=== PATIENT | female | born 1985 | race Caucasian/White ===

== ENCOUNTER 2020-08-16 10:36 | Outpatient (REF) | payer MEDICAID, SELFPAY | END 2020-08-16 10:37 | disposition home or self-care (01) | LOC: HO.LAB 10:36 | PROVIDERS: Visit Provider Internal Medicine | DX: Z20.828 Contact with and (suspected) exposure to other viral communicable diseases (principal) | CPT/HCPCS: 87635 ==

== ENCOUNTER 2020-08-24 10:01 | Outpatient (REF) | payer MEDICAID, SELFPAY | END 2020-08-24 10:02 | disposition home or self-care (01) | LOC: HO.LAB 10:01 | PROVIDERS: Visit Provider Internal Medicine | DX: Z20.828 Contact with and (suspected) exposure to other viral communicable diseases (principal) | CPT/HCPCS: 87635 ==

== ENCOUNTER 2020-09-14 13:42 | Outpatient (REF) | payer MEDICAID, SELFPAY ==
[2020-09-15 09:49] LABS: CT PCR NOT DETECTED (Not Detect.); NG PCR NOT DETECTED (Not Detect.)
== END 2020-09-14 13:43 | disposition home or self-care (01) ==
LOC: HO.LNP 13:42
PROVIDERS: Visit Provider Advanced Practice Midwife
DX: Z01.419 Encounter for gynecological examination (general) (routine) without abnormal findings (principal); B37.2 Candidiasis of skin and nail; E66.01 Morbid (severe) obesity due to excess calories; Z87.42 Personal history of other diseases of the female genital tract
CPT/HCPCS: 87491; 87591

== ENCOUNTER → 2020-10-04 15:44 | Outpatient (BNVA) | payer MEDICAID, SELFPAY | PROVIDERS: Visit Provider Obstetrics & Gynecology | DX: N92.1 Excessive and frequent menstruation with irregular cycle (principal) | CPT/HCPCS: 99212 ==

== ENCOUNTER 2020-12-15 13:50 | Outpatient (REF) | payer MEDICAID, SELFPAY ==
[2020-12-15 18:19] LABS: Glucose Urine UA NEG (NEG); Leukocyte Esterase Urine NEG (NEG); Nitrite Urine NEG (NEG); Urine Blood NEG (NEG); Urine Ketones NEG (NEG); Urine Protein NEG (NEG-TRACE)
[2020-12-15 18:24] LABS: Appearance Urine CLEAR; Color Urine YELLOW
[2020-12-15 18:29] LABS: Bacteria Urine TRACE /LPF; RBC Urine 0 /HPF (0); Squamous Epithelial Cell Urine 2+ /LPF; WBC Urine 0 /HPF (0-4)
== END 2020-12-15 13:51 | disposition home or self-care (01) ==
LOC: HO.LAB 13:50
PROVIDERS: PCP Internal Medicine; Visit Provider Advanced Practice Midwife
DX: R10.2 Pelvic and perineal pain (principal); E66.01 Morbid (severe) obesity due to excess calories; Z68.43 Body mass index [BMI] 50.0-59.9, adult; Z87.42 Personal history of other diseases of the female genital tract
CPT/HCPCS: 81001; 99212

== ENCOUNTER 2021-01-03 12:44 | Outpatient (REF) | payer MEDICAID, SELFPAY ==
--- NOTE | ~2021-01-03 | US_ITS ---
EXAMINATION: ULTRASOUND PELVIS COMPLETE CLINICAL INFORMATION: Pelvic pain and menometrorrhagia. COMPARISON: Ultrasound pelvis 02/28/2020 TECHNIQUE: Transabdominal and transvaginal ultrasound of the pelvis is performed. FINDINGS: On transabdominal ultrasound the uterus is anteverted measuring 12.0 cm in length, 5.3 cm in AP and 6.0 cm in transverse dimension. Endometrial thickness is 1.1 cm. The uterus is homogeneous in echotexture. Right ovary is not visualized. The left ovary is faintly visualized measuring 2.6 x 1.9 x 1.5 cm and volume 3.9 mL. Previously it measured 1.9 x 1.8 x 2.2 cm. There is no free fluid in cul-de-sac. US/US pelvic complete IMPRESSION: 1. Unremarkable uterus. 2. Right ovary is not seen. 3. Suboptimally visualized left ovary is unremarkable.
--- NOTE | ~2021-01-03 | US_ITS ---
EXAMINATION: ULTRASOUND PELVIS COMPLETE CLINICAL INFORMATION: Pelvic pain and menometrorrhagia. COMPARISON: Ultrasound pelvis 02/28/2020 TECHNIQUE: Transabdominal and transvaginal ultrasound of the pelvis is performed. FINDINGS: On transabdominal ultrasound the uterus is anteverted measuring 12.0 cm in length, 5.3 cm in AP and 6.0 cm in transverse dimension. Endometrial thickness is 1.1 cm. The uterus is homogeneous in echotexture. Right ovary is not visualized. The left ovary is faintly visualized measuring 2.6 x 1.9 x 1.5 cm and volume 3.9 mL. Previously it measured 1.9 x 1.8 x 2.2 cm. There is no free fluid in cul-de-sac. US/US transvaginal IMPRESSION: 1. Unremarkable uterus. 2. Right ovary is not seen. 3. Suboptimally visualized left ovary is unremarkable.
== END 2021-01-03 12:45 | disposition home or self-care (01) ==
LOC: HO.US 12:44
PROVIDERS: PCP Internal Medicine; Visit Provider Advanced Practice Midwife
DX: R10.2 Pelvic and perineal pain (principal); E66.01 Morbid (severe) obesity due to excess calories; Z68.43 Body mass index [BMI] 50.0-59.9, adult; Z87.42 Personal history of other diseases of the female genital tract
CPT/HCPCS: 76830; 76856

== ENCOUNTER → 2021-01-12 14:54 | Outpatient (BNVA) | payer MEDICAID, SELFPAY | PROVIDERS: Visit Provider Advanced Practice Midwife ==

== ENCOUNTER 2021-04-11 09:09 | Outpatient (REF) | payer MEDICAID, SELFPAY ==
--- NOTE | ~2021-04-11 | XR_ITS ---
EXAMINATION: XR LUMBOSACRAL SPINE WITH OBLIQUES CLINICAL INFORMATION: Low back pain COMPARISON: None TECHNIQUE: AP, both oblique, and lateral views of the lumbar spine. Lateral view of the lumbosacral junction. FINDINGS: The vertebral bodies and posterior elements are normal. The disc spaces are preserved and the vertebral alignment is normal. The paraspinal soft tissues are normal. XR/XR lumbar spine 4V min IMPRESSION: Unremarkable lumbar spine examination.
== END 2021-04-11 09:10 | disposition home or self-care (01) ==
LOC: HO.XRAY 09:09
PROVIDERS: Visit Provider Internal Medicine
DX: M54.5 Low back pain (principal)
CPT/HCPCS: 72110

== ENCOUNTER 2021-07-24 07:55 | Outpatient (REF) | payer MEDICAID, SELFPAY | END 2021-07-24 07:56 | disposition home or self-care (01) | LOC: HO.LAB 07:55 | PROVIDERS: Visit Provider Internal Medicine | DX: Z20.822 Contact with and (suspected) exposure to COVID-19 (principal) | CPT/HCPCS: C9803; U0003; U0005 ==

== ENCOUNTER → 2021-12-18 10:18 | Outpatient (BNVA) | payer MEDICAID, SELFPAY | PROVIDERS: Visit Provider Advanced Practice Midwife ==

== ENCOUNTER 2023-01-28 10:22 | Outpatient (REF) | payer MEDICAID, SELFPAY ==
--- NOTE | ~2023-01-28 | MM_ITS ---
EXAMINATION: MM DIAGNOSTIC DIGITAL BREAST TOMOSYNTHESIS, BILATERAL US DIAGNOSTIC ULTRASOUND BREAST, LEFT CLINICAL INFORMATION: 37-year-old with one-month history pain left breast upper outer and lower outer. No erythema, discharge, or palpable abnormality. No prior breast imaging. No known family history breast cancer. The lifetime risk of breast cancer based on the Tyrer-Cuzick Model is 9%. COMPARISON: None (current study represents initial baseline exam). TECHNIQUE: Digital breast tomosynthesis is performed in both the craniocaudal and mediolateral oblique views along with computer-aided detection (CAD). Synthesized 2D images are generated from the tomosynthesis. Additional views are obtained: Right MLO x2, left CC, left MLO. Ultrasound left breast is targeted to the areas of clinical concern outer left breast using grayscale imaging and color Doppler without and with harmonics. FINDINGS: There are scattered areas of fibroglandular density (ACR BI-RADS breast composition Category b). There are no significant masses, abnormal calcifications, or other abnormalities. No architectural abnormality. No skin thickening or coarsening of the South's ligaments. The axilla are unremarkable. Ultrasound demonstrates no cystic or solid mass, architectural abnormality, or focal duct ectasia. No skin thickening or edema tracking in the soft tissue planes. Results are discussed with the patient at time of visit, with assistance of an night supervisor. MM/MM tomosynthesis diagnostic BI IMPRESSION: -No mammographic evidence of malignancy or inflammatory changes. -Unremarkable targeted left breast ultrasound ASSESSMENT: BI-RADS 1: Negative RECOMMENDATION: 1. Patient's left mastodynia should be managed based on the clinical impression. 2. Otherwise, routine annual screening mammography, beginning age 40, or earlier as clinical risk factors warrant. This patient's information was entered into a reminder system with a target due date for their next mammogram.
== END 2023-01-28 10:23 | disposition home or self-care (01) ==
LOC: HO.MAMMO 10:22
PROVIDERS: Visit Provider Advanced Practice Midwife
DX: N64.4 Mastodynia (principal)
CPT/HCPCS: 76642; 77062; 77066

== ENCOUNTER 2023-02-06 09:15 | Outpatient (REF) | payer MEDICAID, SELFPAY ==
[2023-02-06 15:34] LABS: CT PCR NOT DETECTED (Not Detect.); NG PCR NOT DETECTED (Not Detect.)
[2023-02-07 09:55] LABS: BV Int Neg Control Negative (Negative); BV Int Pos Control Positive (Positive)
[2023-02-20 04:44] LABS: HPV mRNA E6/E7 rflx Not Detected (Not Detected)
== END 2023-02-06 09:16 | disposition home or self-care (01) ==
LOC: HO.LNP 09:15
PROVIDERS: PCP Internal Medicine; Visit Provider Advanced Practice Midwife
DX: Z01.419 Encounter for gynecological examination (general) (routine) without abnormal findings (principal); E66.01 Morbid (severe) obesity due to excess calories; Z68.43 Body mass index [BMI] 50.0-59.9, adult; N92.1 Excessive and frequent menstruation with irregular cycle; Z11.51 Encounter for screening for human papillomavirus (HPV)
CPT/HCPCS: 0353U; 87480; 87510; 87624; 87660; 88142

== ENCOUNTER 2023-09-03 08:48 | Outpatient (REF) | payer MEDICAID, SELFPAY ==
[2023-09-05 18:48] LABS: TS Negative Control Passed; TS Panel A 0; TS Panel B 0; TS Positive Control Passed; TSpotTB Negative (Negative)
== END 2023-09-03 08:49 | disposition home or self-care (01) ==
LOC: HO.HHCL 08:48
PROVIDERS: Visit Provider Internal Medicine
DX: Z11.1 Encounter for screening for respiratory tuberculosis (principal)
CPT/HCPCS: 36415; 86481

== ENCOUNTER 2024-02-17 11:30 | Outpatient (AMB) | payer MEDICAID, SELFPAY ==
--- NOTE | 2024-02-17 11:35 | MHC.OFFVIS ---
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 Present Allergies penicillin V Allergy (Unknown, Verified 02/17/24 11:35) rash Penicillins [PENICILLINS] Allergy (Unknown, Verified 02/17/24 11:35) RASH Medication List - Last Reconciled 02/17/24 by Li Kendrick CNM desogestrel-ethinyl estradiol 0.15-0.03 mg (Lisa) 1 tab PO DAILY famotidine 20 mg PO DAILY ibuprofen (IBU) 600 mg PO Q8H PRN miconazole nitrate 2% 1 appl topical BID timolol 0.25% 1 drp ophthalmic (eye) DAILY Is last menstrual period known: Yes Last menstrual period: 02/03/24 Do you need a note to return to daycare/school/sports/work: No HPI 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 She says she is on control pills for control but also to help control her heavy periods she was recommended to have an IUD in the past by Dr. Garcia but she did not want it so she says he started her on pills. She has been on them for a while she does like them.. She sees her primary care provider but has not seen him in a year and will be making an appointment but has not gotten an appointment me for her yet. She says she does not have diabetes or high cholesterol or high blood pressure and her labs were last done about a year ago. 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 She tries to eat good and avoid sweets since soda. She is in heavy and overweight for many years. She wants refills on control pills role so on the powder that I gave her another year to help with prevention of yeast in the folds of her pannus. [facility] Medical History Morbid obesity with BMI of 50.0-59.9, adult History of menorrhagia Glaucoma Sleep apnea Surgical History History of hysteroscopy S/P Social History Alcohol intake: never Gender identity: Female Female Reproductive History Menstrual Age of Menarche: 11 Duration of menses: 3-5 days Date of last menstrual period: 02/03/24 control method: pills Total pregnancies: 2 Full term: 2 Date of last pap smear: 02/07/23 (neg,previous pap 2018 wnl) History of abnormal pap smear: No Physical Exam Vital Signs: Last Vital Signs BP 112/68 02/17/24 11:42 BMI result Body Mass Index 51.2 Chest Other: Her breasts are large and pendulous no masses or skin dimpling or retraction noted. Speculum Exam - Vagina: normal appearance of the vagina and other Speculum Exam - Cervix: normal appearance of the cervix (Only the tip of the cervix could be visible pink and smooth and it was flee) and Other cervical findings present (limited views, only tip of cervix visible and it disappeared quickly) Bimanual exam- vagina & uterus: other (uterus difficult to assess 2' habitus) Bimanual Exam- Adnexa, other: Other (palpation of adnexae limited 2' habitus) Results Reviewed Results Reviewed: Name: Marina Pena Age/Sex: 37/F Attending: Li Kendrick CNM : 1985 Submitted by: Li Kendrick CNM Copies to: Keshia Beck MD MR #: [id number] Status: DEP REF Collected: 02/06/23 Location: [facility] Received: 02/07/23 ADDENDUM REPORT Addendum Addendum #1 HPV mRNA E6/E7: NOT DETECTED This assay detects E6/E7 viral messenger RNA (mRNA) from 14 high-risk HPV types (16, 18, 31, 33, 35, 39, 45, 51, 52, 56, 58, 59, 66, 68) HPV testing performed by [facility], [place], [place]. See reference laboratory portion of the EMR for entire report. Electronically Signed By: Maribell Veliz 02/27/23 193 Interpretation Satisfactory for evaluation. No endocervical cells seen. Negative for intraepithelial lesion or malignancy. Clinical Information LMP: 01/30/23 Previous PAP test: 07/13/18, WNL Material Received ThinPrep-Cervical Copies To Keshia Beck MD [address] [place] [address] Li Kendrick CNM Patient: Marina Pena Age/Sex: 37/F MR#: [id number] Page 1 of 2 Gynecologic Cytology [id number] [place] [address] Dr. Che [address] [place] [id number] Electronically Signed By: Marilee Arthur 02/10/23 1211 The Pap Test is a screening procedure with the inherent possibility of both false negative and false positive results. Results should be interpreted in the context of historic and current clinical findings. Reliability of the Pap Test is enhanced by performing the test on a regular repetitive basis. Patient: Marina Pena Age/Sex: 37/F MR#: [id number] Assessment & Plan Assessment & Plan (1) Surveillance for control, oral contraceptives: Comment: See notes again re discussion of risks.. Code(s): Z30.41 - Encounter for surveillance of contraceptive pills Category: Medical (2) Morbid obesity with BMI of 50.0-59.9, adult: Code(s): E66.01 - Morbid (severe) obesity due to excess calories; Z68.43 - Body mass index [BMI] 50.0-59.9, adult Category: Medical (3) History of menorrhagia: Code(s): Z87.42 - Personal history of other diseases of the female genital tract Category: Medical (4) Well woman exam with routine gynecological exam: Code(s): Z01.419 - Encounter for gynecological examination (general) (routine) without abnormal findings Category: Medical (5) Menometrorrhagia: Comment: Being managed with control pills patient has refused Mirena with counseling, and is still reluctant... Code(s): N92.1 - Excessive and frequent menstruation with irregular cycle Category: Medical (6) Cervical cancer screening: Comment: pap 07/13/18= neg, neg HPV, next due 06/2023; 02/06/2023 Pap is negative but HPV co testing was omitted. I am ordering it now.--HPV is negative. Code(s): Z12.4 - Encounter for screening for malignant neoplasm of cervix Category: Medical Plan -----Discussed in this visit the following: healthy balanced diet, regular and consistent exercise, getting recommended health screens, doing the best she can for her particular health concerns, kegel exercises, pap smear screening and followup recommendations, mammography screening and SBE, normal changes in cycles in her life stage--- .Discussed in general terms the challenges of obesity and challenges for her health and efforts she is engaging in to manage this including dietary changes water intake attention to sleep inclusion of a regular exercise have it and dealing with the may need stressors of life that can contribute to obesity in general. Encouraged her to continue in all have her best efforts- -----discussed importantly her obesity in relation to her past history of menorrhagia and her current management on control pills discussed increased risks of being on control pills especially with increasing age and increased risks inherent with this but also most especially her obesity she is very active all the time then not sedentary which is a good thing and may mitigate against risks of thromboembolic events. Discussed though in general eventually the obesity will present other negative health effects that will become more evident with time. I urged her to really try to focus effort trying to lose weight. Discussed that if she has not able to managed on control pills because of a comorbidity for instance if she develops hypertension or something, then a Mirena would again need to be revisited however in this particular space and time I was not even able to fully visualize her cervix let alone consider doing a Pap smear or placing a Mirena. I really urged her to embrace some of her fears of surgery and other interventions for weight loss in a discussion with her primary care provider and consider balancing that with the fears of the negative effects of the her obesity. Orders: Orders CT NG by PCR Today Z01.419 - Encounter for gynecological examination (general) (routine) without abnormal findings Bacterial Vaginosis Panel Today Z20.2 - Contact with and (suspected) exposure to infections with a predominantly sexual mode of transmission Medications: Refilled miconazole nitrate 2% 1 appl topical BID 85 grams 4RF desogestrel-ethinyl estradiol 0.15-0.03 mg (Lisa) Patient to be evaluated by her primary care provider for general health concerns within this time 1 tab PO DAILY 84 tabs 3RF Coding Level of Care Code Est Pt Prev Care 18-39y([id number]) Diagnoses Surveillance for control, oral contraceptives Z30.41 Morbid obesity with BMI of 50.0-59.9, adult E66.01; Z68.43 History of menorrhagia Z87.42 Well woman exam with routine gynecological exam Z01.419 Menometrorrhagia N92.1 Cervical cancer screening Z12.4
[2024-02-17 11:42] VITALS: BP 112/68; BMI 51.2
== END 2024-02-17 13:00 | disposition home or self-care (01) ==
LOC: HO.HWSM 11:30
PROVIDERS: PCP Internal Medicine; Visit Provider Advanced Practice Midwife
DX: Z30.41 Encounter for surveillance of contraceptive pills (principal); E66.01 Morbid (severe) obesity due to excess calories; Z68.43 Body mass index [BMI] 50.0-59.9, adult; Z87.42 Personal history of other diseases of the female genital tract; Z01.419 Encounter for gynecological examination (general) (routine) without abnormal findings; N92.1 Excessive and frequent menstruation with irregular cycle; Z12.4 Encounter for screening for malignant neoplasm of cervix
CPT/HCPCS: 99395

== ENCOUNTER 2024-02-17 11:30 | Outpatient (REF) | payer MEDICAID, SELFPAY ==
[2024-02-18 07:41] LABS: CT PCR NOT DETECTED (Not Detect.); NG PCR NOT DETECTED (Not Detect.)
[2024-02-18 13:26] LABS: BV Int Neg Control Negative (Negative); BV Int Pos Control Positive (Positive)
== END 2024-02-17 11:31 | disposition home or self-care (01) ==
LOC: HO.LAB 11:30
PROVIDERS: PCP Internal Medicine; Visit Provider Advanced Practice Midwife
DX: Z01.419 Encounter for gynecological examination (general) (routine) without abnormal findings (principal); Z20.2 Contact with and (suspected) exposure to infections with a predominantly sexual mode of transmission
CPT/HCPCS: 0353U; 87480; 87510; 87660; 99395

== ENCOUNTER 2024-09-03 16:15 | Outpatient (REF) | payer MEDICAID, SELFPAY ==
[2024-09-04 09:07] LABS: Adenovirus PCR Not Detected (Not Detect.); Bordetella parapertussis PCR Not Detected (Not Detect.); Bordetella pertussis PCR Not Detected (Not Detect.); Chlamydia pneumoniae PCR Not Detected (Not Detect.); Coronavirus 229E PCR Not Detected (Not Detect.); Coronavirus HKU1 PCR Not Detected (Not Detect.); Coronavirus NL63 PCR Not Detected (Not Detect.); Coronavirus OC43 PCR Not Detected (Not Detect.); Human metapneumovirus PCR Not Detected (Not Detect.); Influenza A PCR Not Detected (Not Detect.); Influenza B PCR Not Detected (Not Detect.); Mycoplasma pneumoniae PCR Not Detected (Not Detect.); Parainfluenza 1 PCR Not Detected (Not Detect.); Parainfluenza 2 PCR Not Detected (Not Detect.); Parainfluenza 3 PCR Not Detected (Not Detect.); Parainfluenza 4 PCR Not Detected (Not Detect.); RSV PCR Not Detected (Not Detect.); Rhino/Enterovirus PCR Not Detected (Not Detect.)
[2024-09-04 09:12] LABS: SARS-CoV-2 PCR Not Detected (Not Detect.)
== END 2024-09-03 16:16 | disposition home or self-care (01) ==
LOC: HO.LNP 16:15
PROVIDERS: Visit Provider Emergency Medicine
DX: E11.9 Type 2 diabetes mellitus without complications (principal)
CPT/HCPCS: 87633

== ENCOUNTER 2024-09-06 09:55 | Outpatient (REF) | payer MEDICAID, SELFPAY ==
[2024-09-06 11:10] LABS: MANUAL DIFF FLAG NO
[2024-09-06 11:19] LABS: Basophils Percent Auto 0.2 % (0-2); Eosinophils Absolute Auto 0.2 X10*3/uL (0.0-0.4); Eosinophils Percent Auto 1.4 % (0-4); Hematocrit 38.1 % (37.0-47.0); Hemoglobin 12.4 g/dl (12.0-16.0); Imm Gran Abs Auto 0.05 X10*3/uL (0.00-0.03); Imm Gran Pct Auto 0.4 % (0.0-0.4); Lymphocytes Absolute Auto 2.9 X10*3/uL (1.2-4.9); Lymphocytes Percent Auto 22.3 % (20-40); Mean Corpuscular HGB Conc 32.5 g/dl (31.0-35.0); Monocytes Absolute Auto 0.5 X10*3/uL (0.1-1.2); Neutrophils Absolute Auto 9.3 x10*3/uL (2.0-8.3); Neutrophils Percent Auto 71.7 % (45-73); Platelet Count 296 X10*3/uL (160-400); Red Blood Count 4.14 X10*6/uL (4.20-5.50); Red Cell Distribution Width 12.9 % (11.0-16.0)
[2024-09-06 11:55] LABS: Alanine Aminotransferase 7 U/L (0-31); Albumin Level 3.5 g/dL (3.5-5.0); Alkaline Phosphatase 64 U/L (39-117); Anion Gap 11 (12-20); Aspartate Amino Transferase 12 U/L (5-31); Bilirubin Total 0.3 mg/dL (0.0-1.0); Blood Urea Nitrogen 10 mg/dL (9-16); Calcium 8.7 mg/dL (8.4-10.2); Carbon Dioxide 21 mmol/L (22-29); Chloride 111 mmol/L (96-108); Cholesterol 140 mg/dL (<200); Estimated Glomerular Filt Rate > 60; Glucose Random 134 mg/dL (60-115); HDL Cholesterol 46 mg/dL (>40); LDL Cholesterol Calculated 44 mg/dL (<100); Potassium 3.9 mmol/L (3.3-5.1); Sodium 139 mmol/L (135-145); TSH reflex Free T4 3.09 uIU/mL (0.32-4.0); Total Protein 7.4 g/dL (6.5-8.0); Triglycerides 250 mg/dL (<150); Vitamin D 25-OH Total 14.8 ng/mL (>30)
[2024-09-06 12:41] LABS: HIV AB/AG Nonreactive (Nonreactive); HIV Num 1 0.06 S/CO (0.00-0.99); ~Hepatitis C Antibody Nonreactive (Nonreactive)
== END 2024-09-06 09:56 | disposition home or self-care (01) ==
LOC: HO.HHCL 09:55
PROVIDERS: Visit Provider Internal Medicine
DX: E11.9 Type 2 diabetes mellitus without complications (principal)
CPT/HCPCS: 36415; 80053; 80061; 82306; 84443; 85025; 86803; 87389

== ENCOUNTER 2024-10-29 09:58 | Outpatient (REF) | payer MEDICAID, SELFPAY ==
--- NOTE | ~2024-10-29 | XR_ITS ---
CLINICAL HISTORY: pain 3 view left hand Comparison: None Findings: No fractures or dislocations. No significant loss of joint space or osteophytes. No erosions. No radiopaque foreign body. IMPRESSION: 1. No acute findings This document has been electronically signed by: Bibiana Heaton MD on 11/02/2024 14:27:02
== END 2024-10-29 09:59 | disposition home or self-care (01) ==
LOC: HO.XRAY 09:58
PROVIDERS: PCP Internal Medicine; Visit Provider Internal Medicine
DX: M79.642 Pain in left hand (principal)
CPT/HCPCS: 73130

== ENCOUNTER → 2024-10-29 10:06 | Outpatient (BNV) | payer MEDICAID, SELFPAY | PROVIDERS: PCP Internal Medicine; Visit Provider Radiology Diagnostic Radiology | DX: M79.642 Pain in left hand (principal) | CPT/HCPCS: 73130 ==

== ENCOUNTER 2024-11-17 08:14 | Outpatient (REF) | payer MEDICAID, SELFPAY ==
--- NOTE | ~2024-11-17 | XR_ITS ---
CLINICAL HISTORY: M79.642 - Pain in left hand 3 view left hand Comparison: 10/29/2024 Findings: Small linear lucency projecting over the radial aspect of the distal scaphoid on a single view may be artifactual in nature or due to a nondisplaced fracture. Correlate clinically. Otherwise normal alignment without acute fracture. No erosions. No radiopaque foreign body. IMPRESSION: Small linear lucency projecting over the radial aspect of the distal scaphoid on a single view may be artifactual in nature or due to a nondisplaced fracture. Correlate clinically. This document has been electronically signed by: Kamala Mariano MD on 11/18/2024 13:12:44
--- OUTSIDE RECORDS SUMMARY | 2024-11-17 08:19 | XMS_ITS | Encounter Summary ---
Author Organization [employer] Address [address] [facility] [address] [place] [address] Care Team Providers Care Battery Stacker Name Role Phone Keshia Beck MD Primary Care Provide r Encounter Details Date Type Department Care Team ([facility] Contact Info) Description 10/28/2024 Telephone [facility] MEDICINE [address] [place] [address] Keshia Beck MD [address] [place] [address] Social History Tobacco Use Types Packs/Day Years Used Date Smoking Tobacco: Never Passive Smoke Exposure: Never Smokeless Tobacco: Never Alcohol Use Standard Drinks/Week Comments Never 0 (1 standard drink = 0.6 oz pur e alcohol) Depression Answer Date Recorded Patient Health Questionnaire-9 Score 0 10/25/2024 Patient Health Questionnaire-9 Score 0 10/25/2024 Last PHQ-9: Questionnaire Data Not on file 1 Housing Stability Answer Date Recorded What is your housing situation today? I have irena ramires 09/03/[address] you li [...] AM EDT documented as of this encounter Miscellaneous Notes * Telephone Encounter - Isi Sherman [place] - 11/04/2024 9:40 AM EST Received fax from [employer] [facility] for Denial for Zepbound 2.5mg. Fax sent to scan * Telephone Encounter - Alexandra Spence - 10/28/2024 4:30 PM EST [facility] has [facility], no longer requires PA for Zepbound. * Telephone Encounter - Alexandra Spence - 10/28/2024 4:30 PM EST ----- Message from Keshia Mota MD sent at 10/25/2024 10:29 AM EST ----- Please generate PA for zepbound thank you documented in this encounter Plan of Treatment Upcoming Encounters Date Type Department Care Team (Late st Contact Info) Description 12/09/2024 2:30 PM EST Telemedicine [facility] MEDICINE [address] [place] [address] Keshia Beck MD [address] [place] [address] documented as of this encounter Visit Diagnoses Not on filedocumented in this encounter Additional Health Concerns Assessment Noted Time PHQ-9 Depression Total Score: 0 10/25/20 24 10:14 AM EST documented as of this encounter Care Teams Battery Stacker Relationship Specialty Start Date End Date Keshia Beck MD [address] [place] [address] PCP - General Family Medicine 07/08/18 documented as of this encounter
--- OUTSIDE RECORDS SUMMARY | 2024-11-17 08:19 | XMS_ITS | Encounter Summary ---
Author Organization [employer] Address [address] [facility] [address] [place] [address] Care Team Providers Care Tailor Garment Fitter Name Role Phone Keshia Beck MD Primary Care Provide r Reason for Visit * Reason Onset Date Comments Prior Authorization 10/26/2024 [employer]VAL[employer] Reques t: Zepbound Encounter Details Date Type Department Care Team ([facility] Contact Info) Description 10/26/2024 Telephone [facility] MEDICINE [address] [place] [address] Keshia Beck MD [address] [place] [address] Prior Authorization (DEVON AVALOS Request: Zepbound) Social History Tobacco Use Types Packs/Day Years [...] encounter Miscellaneous Notes * Telephone Encounter - Alexandra Spence - 11/03/2024 9:57 AM EST PA for Zepbound signed and faxed to [employer]. Confirmation received and sent to scan. If patient calls to check status on above, please advise them to contact [facility] at [phone]. * Telephone Encounter - Alexandra Spence - 10/26/2024 9:28 AM EST PA for Zepbound from [facility] placed on PCP desk for signature. documented in this encounter Plan of Treatment Upcoming Encounters Date Type Department Care Team (Late st Contact Info) Description 12/09/2024 2:30 PM EST Telemedicine [facility] MEDICINE [address] [place] [address] Keshia Beck MD [address] [place] [address] documented as of this encounter Visit Diagnoses Not on filedocumented in this encounter Additional Health Concerns Assessment Noted Time PHQ-9 Depression Total Score: 0 10/25/20 24 10:14 AM EST documented as of this encounter Care Teams Tailor Garment Fitter Relationship Specialty Start Date End Date Keshia Beck MD [address] [place] [address] PCP - General Family Medicine 07/08/18 documented as of this encounter
--- OUTSIDE RECORDS SUMMARY | 2024-11-17 08:19 | XMS_ITS | Encounter Summary ---
Author Organization [employer] Address [address] [facility] [address] [place] [address] Care Team Providers Care Glue Spreading Machine Operator Name Role Phone Keshia Beck MD Primary Care Provide r Reason for Visit * Reason Comments Med Refill Encounter Details Date Type Department Care Team ([facility] Contact Info) Description 10/29/2024 Refill [facility] MEDICINE [address] [place], [place] [phone] Keshia Beck MD [address] [place], [place] [phone] Newly diagnosed diabetes ([facility]/H[facility]) Social History Tobacco Use Types Packs/Day Years [...] AM EDT documented as of this encounter Plan of Treatment Upcoming Encounters Date Type Department Care Team (Late st Contact Info) Description 12/09/2024 2:30 PM EST Telemedicine [facility] MEDICINE [address] [place] [address] Keshia Beck MD [address] [place] [address] documented as of this encounter Visit Diagnoses Diagnosis Newly diagnosed diabetes ([facility]) Type II or unspecified type diabetes mellitus without mention of complication, not stated as uncontrolled documented in this encounter Additional Health Concerns Assessment Noted Time PHQ-9 Depression Total Score: 0 10/25/20 24 10:14 AM EST documented as of this encounter Care Teams Glue Spreading Machine Operator Relationship Specialty Start Date End Date Keshia Beck MD [address] [place], [place] [phone] PCP - General Family Medicine 07/08/18 documented as of this encounter
--- OUTSIDE RECORDS SUMMARY | 2024-11-17 08:19 | XMS_ITS | Encounter Summary ---
Author Organization [employer] Address [address] [facility] [address] [place] [address] Care Team Providers Care Manager Medicaid Name Role Phone Keshia Beck MD Primary Care Provide r Reason for Visit * Reason Onset Date Comments Prior Authorization 11/10/2024 Encounter Details Date Type Department Care Team ([facility] Contact Info) Description 11/10/2024 Telephone [facility] MEDICINE [address] [place] [address] Keshia Beck MD [address] [place] [address] Prior Authorization Social History Tobacco Use Types Packs/Day Years [...] is your housing situation today? I have irenamelonie ramires 09/03/[address] [...] encounter Miscellaneous Notes * Telephone Encounter - Frandy Sabillon RN - 11/12/2024 3:31 PM EST Patient calling regarding RX Zepbound PA was denied. Per [facility] patients need to trial oral medications such as phentermine if clinically appropriate first. Please review and advise. * Telephone Encounter - Marianna Maxwell - 11/10/2024 9:50 AM EST Tc from pt notifying medication needs a PA Tirzepatide-Weight Management (Zepbound) 2.5 MG/0.5ML solution auto-injector documented in this encounter Plan of Treatment Upcoming Encounters Date Type Department Care Team (Late st Contact Info) Description 12/09/2024 2:30 PM EST Telemedicine [facility] MEDICINE [address] [place] [address] Keshia Beck MD [address] [place] [address] documented as of this encounter Visit Diagnoses Not on filedocumented in this encounter Additional Health Concerns Assessment Noted Time PHQ-9 Depression Total Score: 0 10/25/20 24 10:14 AM EST documented as of this encounter Care Teams Manager Medicaid Relationship Specialty Start Date End Date Keshia Beck MD [address] [place] [address] PCP - General Family Medicine 07/08/18 documented as of this encounter
--- OUTSIDE RECORDS SUMMARY | 2024-11-17 08:19 | XMS_ITS | Clinical Summary ---
Author Organization [employer] Address [address] [facility] 7[address] [place] [address] Care Team Providers Care Acid Polymerization Operator Name Role Phone Keshia Beck MD Primary Care Provide r Allergies Active Allergy Reactions Criticality Noted Date Comments Penicillins 03/26/2017 Other reaction(s): Unknown Medications albuterol (Proventil HFA) 108 (90 Base) MCG/ACT inhalerIndicati ons:Influenza-l cody symptoms INHALE 2 PUFFS EVERY 4 HOURS NEEDED FOR WHEEZING OR SHORTNESS OF BREATH. 6.7 g 11 12/11/19 23 Active baclofen (Lioresal) 20 MG tablet TAKE 1 TABLET BY MOUTH THREE TIMES DAILY NEEDED FOR PAIN 02/07/20 23 Active D3 Super Strength 50 MCG (2000 UT) capsule TAKE 1 CAPSULE BY MOUTH ONCE DAILY 90 capsule 3 06/09/20 23 Active baclofen (Lioresal) 20 MG tablet TAKE 1 TABLET BY MOUTH THREE TIMES DAILY NEEDED FOR PAIN 60 tablet 3 08/19/20 23 Active famotidine (Pepcid) 20 MG tablet TAKE 1 TABLET BY MOUTH TWICE DAILY 180 tablet 05/19/20 24 Active loratadine (Claritin) 10 MG tabletIndicatio ns:Allergic rhinitis, unspecified seasonality, unspecified trigger TAKE 1 TABLET BY MOUTH EVERY DAY NEEDED FOR ALLERGIES 90 tablet 06/30/20 24 Active fluticasone (Flonase Allergy Relief) 50 MCG/ACT nasal sprayIndication s:Influenza-lik e symptoms Administer 1 spray into each nostril Once per day. Shake gently. Before first use, prime pump. After use, clean tip and replace cap. 16 g 12 08/25/20 24 025 Active Spacer/Aero-Hol ding Chambers (OptiChamber Neena) miscIndications :Influenza-like symptoms 1 each every 4 (four) hours if needed (asthma). 1 each 09/03/20 24 Active FREESTYLE LITE test stripIndication s:Newly diagnosed diabetes ([facility]) Use to test blood sugar 2 times daily 100 each 12 09/06/20 24 025 Active Lancets miscIndications :Newly diagnosed diabetes ([facility]) Use to test blood sugar 2 times daily 100 each 2 09/06/20 24 Active Alcohol Swabs 70 % padsIndications :Newly diagnosed diabetes ([facility] Use to test blood sugar 2 times daily 100 each 2 09/06/20 24 Active Blood Glucose Monitoring Suppl (FreeStyle [place] Lite) w/Device kitIndications: Newly diagnosed diabetes ([facility]) Use to test blood sugar 2 times daily 1 kit 09/06/20 24 Active ibuprofen 800 MG tabletIndicatio ns:Polyarthralg ia TAKE 1 TABLET BY MOUTH THREE TIMES DAILY WITH FOOD NEEDED (for pain) 90 tablet 09/06/20 24 Active acetaminophen (Tylenol) 500 MG tabletIndicatio ns:Polyarthralg ia Take 2 tablets (1,000 mg) by mouth every 6 (six) hours if needed for moderate pain or fever for up to 40 doses. 40 tablet 1 09/06/20 24 Active cholecalciferol (Vitamin D-3) 50 MCG (2000 UT) capsuleIndicati ons:Vitamin D deficiency Take 1 capsule (50 mcg) by mouth Once per day. 30 capsule 2 10/25/20 24 Active Tirzepatide-Flavio ght Management (Zepbound) 2.5 MG/0.5ML solution auto-injectorIn dications:Class 3 severe obesity due to excess calories with serious comorbidity and body mass index (BMI) of 50.0 to 59.9 in adult ([facility]) Inject 0.5 mL (2.5 mg) under the skin 1 (one) time per week. 2 mL 10/25/20 24 Active cyclobenzaprine (Flexeril) 10 MG tabletIndicatio ns:Left hip pain Take 1 tablet (10 mg) by mouth 3 times daily for 10 days. 30 tablet 10/25/20 24 Active metFORMIN (Glucophage) 500 MG tabletIndicatio ns:Newly diagnosed diabetes (CMS/HCC) TAKE 1 TABLET BY MOUTH TWICE DAILY IN THE MORNING AND IN THE EVENING WITH MEALS 180 tablet 1 10/29/19 25 Active metFORMIN (Glucophage) 500 MG tabletIndicatio ns:Newly diagnosed diabetes (CMS/HCC) Take 1 tablet (500 mg) by mouth with breakfast and with evening meal. 60 tablet 1 09/06/20 24 025 Discontinued acetaminophen (Tylenol 8 Hour) 650 MG ER tabletIndicatio ns:Left hip pain Take 2 tablets (1,300 mg) by mouth every 8 (eight) hours if needed for mild pain for up to 10 days. Do not crush, chew, or split. 30 tablet 10/25/20 24 025 Active Problems Problem Noted Date Diagnosed Date Elevated blood pressure reading 11/12/2024 Assessment & Plan (11/12/2024 3:50 PM EST): Patient with previous readings of high blood pressure, I advise weight loss and low Na diet I also advise to monitor BP at home and report back to me Vitamin D deficiency 10/25/2024 Left hand pain 10/25/2024 Left hip pain 10/25/2024 Newly diagnosed diabetes 09/06/2024 Assessment & Plan (09/06/2024 10:13 AM EST): Diabetes is: not controlled - Lab Results [...] Continue current medications -f/u in 7 weeks Class 3 severe obesity due t o excess calories with serious comorbidity and body mass index (BMI) of 50.0 to 59.9 in adult 09/06/2024 Assessment & Plan (11/12/2024 3:51 PM EST): I will start patient on zepbound, medication side effects and contraindications where reviewed Patient is currently not a candidate for phentermine due to high blood pressure readings RTC 6 david Assessment & Plan (09/06/2024 10:15 AM EST): Today extensive discussion was done about life style modifications I advise healthy diet (low calorie) and cardiovascular exercise I ordered labs after review of labs I will consider starting her on zepbound Polyarthralgia 09/06/2024 Assessment & Plan (09/06/2024 10:14 AM EST): Alternate ibuprofen with acetaminophen if needed Encounter for preventive care 09/06/2024 Assessment & Plan (09/06/2024 10:16 AM EST): See HPI Prediabetes 08/14/2023 08/14/2023 Gastroesophageal reflux disease 08/14/2023 08/14/2023 Chronic low back pain 08/14/2023 08/14/2023 Chronic cough 08/14/2023 08/14/2023 Loss of sense of smell 04/07/2018 3 Obstructive sleep apnea syndrome 03/26/2017 08/14/2023 Assessment & Plan (09/06/2024 10:16 AM EST): Continue to use CPAP every night Sleep medicine referral Morbid obesity 03/26/2017 08/14/2023 Irregular periods 03/26/2017 08/14/2023 Glaucoma 03/26/2017 08/14/2023 Acanthosis nigricans 03/26/2017 08/14/2023 Encounters Date Type Department Care Team Description 11/10/2024 Telephone [facility] [address] [place] [phone] Keshia Beck MD Prior Authorization 10/29/2024 Refill [facility] [address] [place] [address] Keshia Beck MD Newly diagnosed diabetes ([facility]) 10/28/2024 Telephone [facility] [address] [place] [address] Keshia Beck MD 10/26/2024 Travel 10/26/[address] [address] Keshia Beck MD Prior Authorization ( [place] Request: Zepbound) 10/25/2024 10:00 AM EST Office Visit [address] [address] Keshia Beck MD Left hand pain (Primary Dx); Vitamin D deficiency; Class 3 severe obesity due to excess calories with serious comorbidity and body mass index (BMI) of 50.0 to 59.9 in adult (CMS/HCC); Left hip pain; Elevated blood pressure reading 10/25/2024 Travel 10/22/[address] [address] Kristin Fry [place] Chart Prep 09/06/2024 9:15 AM EST Office Visit [address] [address] Keshia Beck MD Newly diagnosed diabetes (CMS/HCC) (Primary Dx); Class 3 severe obesity due to excess calories with serious comorbidity and body mass index (BMI) of 50.0 to 59.9 in adult (CMS/HCC); Obstructive sleep apnea syndrome; Polyarthralgia; Encounter for preventive care; Dietary counseling; Exercise counseling 09/06/2024 Travel 09/03/2024 9:40 AM EST Office Visit [facility] [address] [place] [phone] Nicholas Lugo MD Influenza-like symptoms (Primary Dx) 09/03/2024 Refill [facility] [address] [place] [address] ErastoSimin FNP 08/27/2024 Patient Outreach [address] [address] Keshia Beck MD Pre-visit Planning (SDOH screening negative and tobacco screening negative) 08/24/2024 Refill [facility] [address] [place], [place] [phone] Keshia Beck MD Influenza-like symptoms from Last 3 Months Immunizations Name Administration Dates Next Due Influenza injectable quadriv alent preservative free 09/07/2021,09/20/2020,09/25/2018 Anupama SARS-CoV-2 Vaccination 01/17/2021 Tdap 04/07/2018 Social History Tobacco Use Types Packs/Day Years Used Date Smoking Tobacco: Never Passive Smoke Exposure: Never Smokeless Tobacco: Never Tobacco Cessation:Counseling Given: Not Answered Alcohol Use Standard Drinks/Week Comments Never 0 [...] Orientation Straight 08/26/2022 10 :16 AM EDT Last Filed Vital Signs Vital Sign Reading Time Taken Comments Blood Pressure 149/83 10/25/2024 10:13 AM EST Pulse 95 10/25/2024 10:13 AM EST Temperature 35.9 ??C (96.6 ??F) 10/25/2024 10:[address] Respiratory Rate 19 10/25/2024 10:13 AM EST Oxygen Saturation 98% 10/25/2024 10:13 AM EST Inhaled Oxygen Concentration - - Weight 143 kg (314 lb 3.2 oz) 10/25/2024 10:13 A M EST Height 165.1 cm (5' 5 ) 10/25/2024 10:13 AM EST Body Mass Index 52.29 10/25/2024 10:13 AM EST Plan of Treatment Upcoming Encounters Date Type Department Care Team (Late st Contact Info) Description 12/09/2024 2:30 PM EST Telemedicine [facility] [address], [place] [phone] Keshia Beck MD [address] [place], [place] [phone] Health Maintenance Due Date Last Done Comments Pneumococcal Vaccine: Pediatrics (0 to 5 Years) and At-Risk Patients (6 to 64 Years) (1 of 2 - PCV) 1991 Diabetes: Foot Exam 1995 Eye Exam 1995 Family Planning (PISQ) 2000 Diabetes: Urine Protein Screening 2004 Hepatitis B Vaccines (1 of 3 - 19+ 3-dose series) 2004 COVID-19 Vaccine ( - season) 2024 10/12/2021, 01/17/2021 Influenza Vaccine (#1) 2024 , 09/20/2020, 09/25/2018 Diabetes: Hemoglobin A1C 03/06/2025 024, 09/03/2023, 04/05/2022, Additional history exists SDOH Screening 08/27/2025 08/27/2024 Alcohol/Substance Use Screening 09/06/2025 09/06/2024 Lipid Panel 09/06/2025 09/06/2024, 03/27, 09/29/2020 Depression Screening 10/25/2025 10/25/2024, 10/25/20 24 Tobacco Screening 10/25/2025 10/25/2024 Pap Smear 02/06/2026 02/06/2023, 07/13/2018 Cervical Cancer Screening 02/07/2028 HPV/Cotest 02/07/2028 02/06/2023 DTaP/Tdap/Td Vaccines (2 - Td or Tdap) 04/07/2028 04/07/2018 Zoster Vaccines (1 of 2) 2035 RSV Patients and Patients Aged 60 years or older (1 - 1-dose 75+ series) 2060 HIV Screening Completed 09/06/2024, 04/05/2022 Hepatitis C Screening Completed 09/06/2024, 022 HIB Vaccines Aged Out No longer eligi ble based on patient's age to complete this topic HPV Vaccines Aged Out No longer eligi ble based on patient's age to complete this topic Hepatitis A Vaccines Aged Out No long er eligible based on patient's age to complete this topic IPV Vaccines Aged Out No longer eligi ble based on patient's age to complete this topic Meningococcal Vaccine Aged Out No jonathon sanjay eligible based on patient's age to complete this topic RSV under 20 months Aged Out No longe r eligible based on patient's age to complete this topic Rotavirus Vaccines Aged Out No longer eligible based on patient's age to complete this topic Procedures Procedure Name Priority Date/Time Associated Diagnosis Comments XR HAND 3+ VIEWS LEFT Routine 11/02/2024 2:27 PM EST Left hand pain TSH W/REFLEX TO FT4 Routine 09/06/2024 1 0:00 AM EST Newly diagnosed diabetes (CMS/HCC) VITAMIN D,25-OH,TOTAL,IA Routine 09/06/2024 10:00 AM EST [...] 10:00 AM EST Newly diagnosed diabetes (CMS/HCC) CBC WITH AUTO DIFFERENTIAL Routine 09/06/2024 10:00 AM EST Newly diagnosed diabetes (CMS/HCC) POCT GLYCATED HEMOGLOBIN, TOTAL Routine 09/06/2024 9:22 AM EST Newly diagnosed diabetes (CMS/HCC) POCT GLUCOSE Routine 09/06/2024 9:21 AM EST Newly diagnosed diabetes (CMS/HCC) POCT INFLUENZA B (ID NOW RAPID MOLECULAR) Routine 09/03/2024 10:36 AM EST Influenza-like symptoms POCT INFLUENZA A (ID NOW RAPID MOLECULAR) Routine 09/03/2024 10:36 AM EST Influenza-like symptoms POCT RAPID STREP A Routine 09/03/2024 10 :36 AM EST Influenza-like symptoms POCT RAPID COVID ANTIGEN Routine 09/03/2024 10:36 AM EST Influenza-like symptoms RESPIRATORY VIRAL PANEL PCR Routine 09/03/2024 10:07 AM EST Influenza-like symptoms HPV MRNA E6/E7 REFLEX TO HPV 16, 18/45 Routine 02/06/2023 10:12 AM EDT Mastodynia of left breast PAP SMEAR Routine 02/06/2023 10:12 AM EDT Mastodynia of left breast from Last 3 Months or Most Recently Relevant to Health Maintenance Results * XR Hand 3+ Views Left (11/02/2024 2:27 PM EST) Anatomical Region Laterality Modality Upper Extremities, Hand Left Radiogra phic Imaging 11/02/2024 2:27 PM EST Narrative 11/02/2024 2:28 PM EST ? [facility] ?[address] ?[place] [address] ?XRay Report ? Signed ? Patient: Marina Pena ?MR ?? #: [id number] ? : 1985 ?Acct:[id number] ? Age/Sex: 39 / F ?ADM Date: 10/29/24 ? Loc: HO.XRAY ? Attending Dr: Keshia Mota MD ? Ordering Physician: Keshia Beck MD ?? Date of Service: 10/29/24 ?? Procedure(s): XR hand LT min 3V ?? Accession Number(s): [id number] ? cc: Keshia Beck MD ? CLINICAL HISTORY: pain ? 3 view left hand ? Comparison: None ? Findings: ?? No fractures or dislocations. ?? No significant loss of joint space or osteophytes. ?? No erosions. No radiopaque foreign body. ? IMPRESSION: ?? 1. No acute findings ? This document has been electronically signed by: Bibiana Heaton MD on ?? 11/02/2024 14:27:02 ? Dictated By: ?Bibiana Heaton MD ? Signed By: ?<Electronically signed by Bibiana Heaton MD in OV> ? 11/02/241426 ? DD/ 26 ? TD/TT: 11/02/241426 ? Automobile Body Repair Chief: ? Procedure Note Tremayne Nieves - 11/02/[address] [address] XRay Report Signed Patient: Marina Pena #: [id number] : 1985Acct:[id number] Age/Sex: 39 / FADM Date: 10/29/24 Loc: INDIRA Attending Dr: Keshia Mota MD Ordering Physician: Keshia Beck MD Date of Service: 10/29/24 Procedure(s): XR hand LT min 3V Accession Number(s): [id number] cc: Keshia Beck MD CLINICAL HISTORY: pain 3 view left hand Comparison: None Findings: No fractures or dislocations. No significant loss of joint space or osteophytes. No erosions. No radiopaque foreign body. IMPRESSION: 1. No acute findings This document has been electronically signed by: Bibiana Heaton MD on 11/02/2024 14:27:02 Dictated By: Bibiana Heaton MD Signed By: <Electronically signed by Bibiana Heaton MD in OV> 11/02/24 142 DD/ 26 TD/TT: 11/02/241426 Automobile Body Repair Chief: us Keshia Mota MD IMG XR PROCEDURES Fin al Result * (ABNORMAL) Vitamin D, 25-Hydroxy, Total, Immunoassay (09/06/2024 10:00 AM EST) Vitamin D 25-OH Total 14.8(L) >30 ng/mL [facility] Comment:Health Based Referen ce Values*< 20 ng/mL Jowwoptqu28-13 ng/mL Insufficient> 30 ng/mL Sufficient*Eliu MENDEZ. N [...] AM EST 09/06/2024 11:06 AM EST us Keshia Mota MD LAB BLOOD ORDERABLES Final Result [facility] [address] [place] [phone] * TSH with Reflex to Free T4 (09/06/2024 10:00 AM EST) TSH reflex Free T4 3.09 0.32 - 4.0 uIU/mL [facility] Blood Venous blood specimen / Unknown 09/06/2024 10:00 AM EST 09/06/2024 11:06 AM EST us Keshia Mota MD LAB BLOOD ORDERABLES Final Result [facility] [address] [place] [address] [phone] * (ABNORMAL) CBC auto differential (09/06/2024 10:00 AM EST) White Blood Count 13.0(H) 4.8 - 10.8 X10*3/uL [facility] Red Blood Count 4.14(L) 4.20 - 5.50 X10*6/uL [facility] Hemoglobin 12.4 12.0 - 16.0 g/dl [facility] Hematocrit 38.1 37.0 - 47.0 % [facility] Mean Corpuscular Volume 92.0 80.0 - 98.0 fL [facility] Mean Corpuscular Hemoglobin 30.0 27.0 - 33.0 pg [facility] Mean Corpuscular HGB Conc 32.5 31.0 - 35.0 g/dl [facility] Red Cell Distribution Width 12.9 11.0 - 16.0 % [facility] Platelet Count 296 160 - 400 X10*3/uL [facility] Mean Platelet Volume 12.0 9.4 - 12.3 fL [facility] Neutrophils Percent Auto 71.7 45 - 73 % [facility] Imm Gran Pct Auto 0.4 0.0 - 0.4 % [facility] Lymphocytes Percent Auto 22.3 20 - 40 % [facility] Monocytes Percent Auto 4.0 2 - 11 % [facility] Eosinophils Percent Auto 1.4 0 - 4 % [facility] Basophils Percent Auto 0.2 0 - 2 % [facility] NRBC Pct Auto 0.0 0.0 - 0.2 /100WBC [facility] Neutrophils Absolute Auto 9.3(H) 2.0 - 8.3 x10*3/uL [facility] Imm Gran Abs Auto 0.05(H) 0.00 - 0.03 X10*3/uL [facility] Lymphocytes Absolute Auto 2.9 1.2 - 4.9 X10*3/uL [facility] Monocytes Absolute Auto 0.5 0.1 - 1.2 X10*3/uL [facility] Eosinophils Absolute Auto 0.2 0.0 - 0.4 X10*3/uL [facility] Basophils Absolute Auto 0.0 0.0 - 0.2 X10*3/uL [facility] NRBC Abs Auto 0.000 0.0 - 0.012 X10*3/uL [facility] Blood Venous blood specimen / Unknown 09/06/2024 10:00 AM EST 09/06/2024 11:06 AM EST us Keshia Mota MD LAB BLOOD ORDERABLES Final Result Performing Organization Address [facility] Co de Phone Number [facility] [address] [place] [phone] * Hepatitis C Antibody with Reflex to HCV, RNA, Quantitative, Real-Time PCR (09/06/2024 10:00 AM EST) Hepatitis C Antibody Nonreactive Nonreactive [facility] Comment:Antibodies to HCV no t detected; does not exclude early acuteHCV infection. Blood Venous blood specimen / Unknown 09/06/2024 10:00 AM EST 09/06/2024 11:06 AM EST Keshia Mota MD LAB BLOOD ORDERABLES Final Result Performing Organization Address City/[facility]/ZIP Co de Phone Number [facility] [address] [place] [phone] * HIV-1/2 Antigen and Antibodies, Fourth Generation, with Reflexes (09/06/2024 10:00 AM EST) HIV AB/AG Nonreactive Nonreactive [facility] Comment:HIV-1 p24 Ag and/or HIV-1/HIV-2 Ab not detected.A test result that is nonreactive does not exclude thepossibility of exposure to or infection with HIV-1 and/orHIV-2. Nonreactive results in this assay for individualswith prior exposure to HIV-1 and/or HIV-2 may be due toantigen and antibody levels that are below the limit ofdetection of this assay.The [employer] HIV Ag/Ab Combo assay result andsupplemental assay results should be interpreted inconjunction with the patient's clinical presentation,history and other laboratory results. If the results areinconsistent with clinical evidence, additional testing issuggested to confirm the result. Blood Venous blood specimen / Unknown 09/06/2024 10:00 AM EST 09/06/2024 11:06 AM EST us Keshia Mota MD LAB BLOOD ORDERABLES Final Result [facility] [address] [place] [phone] * (ABNORMAL) Lipid Panel, Standard (09/06/2024 10:00 AM EST) Triglycerides 250(H) <150 mg/dL [facility] Comment:Desirable Triglyceri de: less than 150 mg/dLBorderline High Triglyceride 150-199 mg/dLHigh Triglyceride: 200-499 mg/dLVery High Triglyceride: greater than or equal to 5OO mg/dL Cholesterol 140 <200 mg/dL [facility] Comment:Desirable Cholestero l: less than 200 mg/dLBorderline High Cholesterol: 200-239 mg/dLHigh Cholesterol: greater than 239 mg/dL LDL Cholesterol Calculated 44 <100 mg/dL [facility] Comment:Desirable LDL: less than 100 mg/dLNear Optimal/Above Optimal LDL: 110- 129 mg/dLBorderline High LDL: 130-159 mg/dLHigh LDL: 160-189 mg/dLVery High LDL: greater than or equal to 190 mg/dL HDL Cholesterol 46 >40 mg/dL [facility] Comment:Desirable HDL: great er than 40 mg/dL Note: This HDL assay may give artificially low results in patients with liver disease. Blood Venous blood specimen / Unknown 09/06/2024 10:00 AM EST 09/06/2024 11:06 AM EST us Keshia Mota MD LAB BLOOD ORDERABLES Final Result [facility] [address] [place] [address] [phone] * (ABNORMAL) Comprehensive Metabolic Panel (09/06/2024 10:00 AM EST) Sodium 139 135 - 145 mmol/L [facility] Potassium 3.9 3.3 - 5.1 mmol/L [facility] Chloride 111(H) 96 - 108 mmol/L [facility] Carbon Dioxide 21(L) 22 - 29 mmol/L [facility] Anion Gap 11(L) 12 - 20 [facility] Urea Nitrogen (BUN) 10 9 - 16 mg/dL [facility] Creatinine, Serum 0.63 0.5 - 1.4 mg/dL [facility] Estimated Glomerular Filt Rate >60 [facility] Comment:Chronic Kidney Disea se: Estimated GFR < 60 mL/min/1.17o3Hwdwru Kidney Disease: Estimated GFR < 15 mL/min/1.73m2 Glucose 134(H) 60 - 115 mg/dL [facility] Calcium 8.7 8.4 - 10.2 mg/dL [facility] Bilirubin, Total 0.3 0.0 - 1.0 mg/dL [facility] Aspartate Amino Transferase 12 5 - 31 U/L [facility] Alanine Aminotransferase 7 0 - 31 U/L [facility] Total Protein 7.4 6.5 - 8.0 g/dL [facility] Albumin Level 3.5 3.5 - 5.0 g/dL [facility] Alkaline Phosphatase 64 39 - 117 U/L [facility] Blood Venous blood specimen / Unknown 09/06/2024 10:00 AM EST 09/06/2024 11:06 AM EST Keshia Mota MD LAB BLOOD ORDERABLES Final Result [facility] [address] [place] [phone] * (ABNORMAL) POCT HGB A1C (09/06/2024 9:22 AM EST) Hemoglobin A1C 6.9(A) 4.0 - 6.0 % QC Media Lot # [id number] Lot# Expiration Date Blood 09/06/2024 9:22 AM EST Keshia Mota MD POINT OF CARE TEST EN TER/EDIT ORDERABLES Final Result * POCT Glucose (09/06/2024 9:21 AM EST) Pathologist [facility] Glucose Blood, POC 102 60 - 200 mg/dL QC Media Lot # [id number] Lot# Expiration Date [id number] Blood Capillary blood specimen / Unknown 09/06/2024 9:21 AM EST Keshia Mota MD POINT OF CARE TEST EN TER/EDIT ORDERABLES Final Result * Influenza B (ID NOW Rapid Molecular) (09/03/2024 10:36 AM EST) Pathologist [facility] Influenza B Negative Negative, Indeterminate [facility] Swab 09/03/2024 10:3 6 AM EST us Nicholas Lugo MD POINT OF CARE TEST ENTER/EDIT OR DERABLES Final Result Performing Organization Address [facility] Co de Phone Number [facility] [address] [place] [phone] * Influenza A (ID NOW Rapid Molecular) (09/03/2024 10:36 AM EST) [facility] Influenza A Negative Negative, Indeterminate [facility] Swab 09/03/2024 10:3 6 AM EST us Nicholas Lugo MD POINT OF CARE TEST ENTER/EDIT OR DERABLES Final Result Performing Organization Address [facility] Phone Number [facility] [address] [place] [phone] * POCT Rapid COVID Ag (09/03/2024 10:36 AM EST) [facility] Rapid COVID Ag Negative [facility] Swab 09/03/2024 10:3 6 AM EST us Nicholas Lugo MD POINT OF CARE TEST ENTER/EDIT OR DERABLES Final Result Performing Organization Address [facility] Phone Number [facility] [address] [place] [phone] * POCT rapid strep A manually resulted (09/03/2024 10:36 AM EST) [facility] Rapid Strep A Screen Negative Negative, None Detected [facility] Swab 09/03/2024 10:3 6 AM EST us Nicholas Lugo MD POINT OF CARE TEST ENTER/EDIT OR DERABLES Final Result Performing Organization Address [facility] Co de Phone Number [facility] [address] [place] [phone] * Respiratory Viral Panel PCR (09/03/2024 10:07 AM EST) Adenovirus PCR Not Detected Not Detect. [facility] Bordetella pertussis PCR Not Detected Not Detect. [facility] Comment:Interpret results wi th caution. If B. pertussis isspecifically suspected, additional testing using analternate method is recommended. Bordetella parapertussis PCR Not Detected Not Detect. [facility] Chlamydia pneumoniae PCR Not Detected Not Detect. [facility] Coronavirus 229E PCR Not Detected Not Detect. [facility] Coronavirus HKU1 PCR Not Detected Not Detect. [facility] Coronavirus NL63 PCR Not Detected Not Detect. [facility] Coronavirus OC43 PCR Not Detected Not Detect. [facility] SARS-CoV-2 PCR Not Detected Not Detect. [facility] Comment:SARS-CoV-2 not detec leif by real-time RT-PCR.Note: If clinical suspicion for Sars-CoV-2 is high, continueto maintain precautions and consider repeat testing.Test results should be interpreted in the context ofclinical findings and other laboratory data.Rare polymorphisms exist that could lead to false-negativeor false-positive results. If results do not match theclinical findings, additional testing should be considered.Results reported to [facility].This test has been authorized by the FDA under the EmergencyUse Authorization (EUA) for use by authorized laboratories. Influenza A PCR Not Detected Not Detect. [facility] Influenza B PCR Not Detected Not Detect. [facility] Human metapneumovirus PCR Not Detected Not Detect. [facility] Rhino/Enterovirus PCR Not Detected Not Detect. [facility] Mycoplasma pneumoniae PCR Not Detected Not Detect. [facility] Parainfluenza 1 PCR Not Detected Not Detect. [facility] Parainfluenza 2 PCR Not Detected Not Detect. [facility] Parainfluenza 3 PCR Not Detected Not Detect. [facility] Parainfluenza 4 PCR Not Detected Not Detect. [facility] RSV PCR Not Detected Not Detect. [facility] Resp Panel NA Note See Note [facility] Comment:All results must be correlated with clinical findings.Negative results should not be used as the sole basis fordiagnosis, treatment, or other management decisions.A negative result does not exclude the possibility of viralor bacterial infection. Negative results may occur from thepresence of sequence variants in the region targeted by theassay, the presence of inhibitors, an infection caused by anorganism not detected by the panel, or lower respiratorytract infections that are not detected by a nasopharyngealswab specimen. Test results may also be affected byconcurrent antiviral/antibacterial therapy or levels oforganism in the specimen that are below the limit ofdetection for this test.This assay is performed by Multiplexed PCR, utilizing [employer]. 09/03/2024 10:0 7 AM EST 09/03/2024 4:16 PM EST us Nicholas Lugo MD LAB BLOOD ORDERABLES Final Resul t [facility] [address] [place] [address] [phone] * HPV mRNA E6/E7 w/Reflex to HPV Genotypes 16, 18/45 (02/06/2023 10:12 AM EDT) HPV nRNA E6/E7 Not Detected Not Detected [facility] Comment:Methodology: Transcr iption-Mediated AmplificationThis assay detects E6/E7 viral messenger RNA (mRNA) from 14high-risk HPV types (16,18,31,33,35,39,45,51,52,56,58,59,66,68).Cervical sources are required for HPV testing.If a vaginal source from a patient who has had atotal hysterectomy with removal of cervix wassubmitted, please contact the testing laboratoryfor alternative testing options.For additional information, please refer tohttp://education.Yovigo/faq/SFF409u3(This link if provided for information/educational purposes only.)THIS TEST WAS PERFORMED AT:[facility] [employer] [place] [phone] BOB MD HPV mRNA E6/E7 [facility] HPV 16 RNA [facility] HPV 18/45 RNA [facility] 02/06/2023 10:1 2 AM EDT 02/07/2023 11:00 AM EDT [facility] External Provider LAB CYT OLOGY ORDERABLES Final Result [facility] [address] [place] [address] [phone] * Pap Smear (02/06/2023 10:12 AM EDT) 02/06/2023 10:1 2 AM EDT 02/07/2023 11:00 AM EDT Narrative [facility] - 02/27/2023 7:33 PM EDT ----- ------- Name: Marina Pena ?Age/Sex: 37/F ? : 1985 Unit#: [id number] ?? Attend Dr: Li Kendrick CNM ?Re02/06/23 ?Status: DEP REF ? Location: HO.LNP ?Disch: ? ----- ------- SPEC : [id number] ? RECD: 02/07/23-1100 ? STATUS: ??SOUT ? REQ NUM: [id number] ? LYNDON: 02/06/23-1012 ? SUBM DR: Li Kendrick CNM ? ENTERED: ??02/07/23-8 ?SP TYPE: Pap Smr ?OTHR DR: Keshia Beck MD ? ORDERED: ??Pap Smear ?Addendum Addendum ??1 ?Entered: 02/24/23 HPV mRNA E6/E7: ? NOT DETECTED This assay detects E6/E7 viral messenger RNA (mRNA) from 14 high-risk HPV types (16, 18, 31, 33, 35, 39, 45, 51, 52, 56, 58, 59, 66, 68) HPV testing performed by [facility], [place], [place]. ??See reference laboratory portion of the EMR for entire report. Addendum Signed (signature on file) Maribell Veliz 02/27/231932 ? ----- ------- ? Interpretation ?? Satisfactory for evaluation. ?? No endocervical cells seen. ?? Negative for intraepithelial lesion or malignancy. ?Clinical Information LMP: 01/30/23 Previous PAP test: 07/13/18, WNL ? Material Received ?? ThinPrep-Cervical Copies To: ?? Keshia Beck MD ?? [address] [facility] ?? [place] [address] ?? [phone] ?? Li Kendrick CNM ?? [address] [facility] ?? [place] [address] ?? [phone] ? CONTINUED ON NEXT PAGE ----- ------- Name: Marina Pena ?Age/Sex: 37/F ? : 1985 Unit#: [id number] ?? Attend Dr: Li Kendrick CNM ?Re02/06/23 ?Status: DEP REF ? Location: HO.LNP ?Disch: ? ----- ------- SPEC : [id number] ? RECD: 02/07/23-1099 ? STATUS: ??SOUT ? REQ NUM: [id number] ? LYNDON: 02/06/23-1012 ? SUBM DR: Li Kendrick CNM ? ENTERED: ??02/07/23 ?SP TYPE: Pap Smr ?OTHR : Keshia Beck MD ? ORDERED: ??Pap Smear ? ----- ------- Signed (signature on file) Marilee Arthur 02/10/23 1211 ? (signature on file) Maribell Veliz 02/27/231932 ? ----- ------- ? END OF REPORT ? us [facility] External Provider LAB CYT OLOGY ORDERABLES Final Result [facility] [address] [place] [address] [phone] from Last 3 Months or Most Recently Relevant to Health Maintenance Insurance [employer] Care Teams Acid Polymerization Operator Relationship Specialty Start Date End Date Keshia Beck MD [address] [place] [phone] PCP - General Family Medicine 07/08/18
--- OUTSIDE RECORDS SUMMARY | 2024-11-17 08:19 | XMS_ITS | Encounter Summary ---
Author Organization [employer] Address [address] [facility] 7t [place] [address] Care Team Providers Care Fish Peddler Name Role Phone Keshia Beck MD Primary Care Provide r Encounter Details Date Type Department Care Team (Latest Contact Info) Description 10/26/2024 Travel Social History Tobacco Use Types Packs/Day Years [...] Info) Description 12/09/2024 2:30 PM EST Telemedicine [facility] [address] [place] [phone] Keshia Beck MD [address] [place] [phone] documented as of this encounter Visit Diagnoses Not on filedocumented in this encounter Additional Health Concerns Assessment Noted Time PHQ-9 Depression Total Score: 0 10/25/20 24 10:14 AM EST documented as of this encounter Care Teams Fish Peddler Relationship Specialty Start Date End Date Keshia Beck MD [address] [place] [phone] PCP - General Family Medicine 07/08/18 documented as of this encounter
--- OUTSIDE RECORDS SUMMARY | 2024-11-17 08:20 | XMS_ITS | Encounter Summary ---
Author Organization [employer] Address [address] [facility] 7t [place] [address] Care Team Providers Care United [place] Marshal Name Role Phone Keshia Beck MD Primary Care Provide r Reason for Referral * Consultation (Routine) - Authorized Specialty Diagnoses / Procedures Referred By Contyovanny abarca Referred To Contact Hand Surgery Diagnoses Left hand pain Keshia Beck MD [address] [place] [phone] Phone: tel: fax: [facility] [address] [place] [address] Phone: tel: Referral ID Status Reason Start Date Expiration Date Visits Requested Visits Authorized [id number] Authorized Specialty Services Required 4 10/26/2025 6 6 Encounter Details Date Type Department Care Team (Late st Contact Info) Description 10/25/2024 10:00 AM EST Office Visit [facility] [address] [place] [address] [phone] Keshia Beck MD [address] [place] [address] [phone] Left hand pain (Primary Dx); Vitamin D deficiency; Class 3 severe obesity due to excess calories with serious comorbidity and body mass index (BMI) of 50.0 to 59.9 in adult (CMS/HCC); Left hip pain; Elevated blood pressure reading Social History Tobacco Use Types Packs/Day Years [...] Mass Index 52.29 10/25/2024 10:13 AM EST documented in this encounter Progress Notes * Keshia Mota MD - 10/25/2024 10:00 AM EST SUBJECTIVE: Marina Hale is a 39 y.o. year old female who presents for Chronic Disease Management . Acute Concerns: Labs reviewed with patient I let her know triglycerides are high and also vitamin D is low Patient today c/o right hand pain, reports problems with her thumb mobility and she feels it sometimes is stuck, she uses a brace that helps Patient also c/o muscular pain that comes and goes on left shoulder, chest wall, and left hip Patient continue to struggle with her weight she have tried healthy diet and exercise without success Social History Social History Narrative Not on file Patient Active Problem List Diagnosis Prediabetes Obstructive sleep apnea syndrome Morbid obesity (CMS/HCC) Loss of sense of smell Irregular periods Glaucoma Gastroesophageal reflux disease Chronic low back pain Chronic cough Acanthosis nigricans Newly diagnosed diabetes (CMS/HCC) Class 3 severe obesity due to excess calories with serious comorbidity and body mass index (BMI) of50.0 to 59.9 in adult (CMS/HCC) Polyarthralgia Encounter for preventive care Vitamin D deficiency Left hand pain Left hip pain Elevated blood pressure reading No family history on file. Review of Systems Constitutional: Negative. HENT: Negative. Respiratory: Negative. Cardiovascular: Negative. Musculoskeletal: Positive for arthralgias and myalgias. OBJECTIVE: Vitals: 10/25/24 1013 BP: (!) 149/83 BP Location: Left arm Patient Position: Sitting BP Cuff Size: Large adult Pulse: 95 Resp: 19 Temp: 96.6 ??F (35.9 ??C) TempSrc: Oral SpO2: 98% Weight: 314 lb 3.2 oz (143 kg) Height: 5' 5 (1.651 m) Physical Exam Constitutional: Appearance: Normal appearance. Cardiovascular: Rate and Rhythm: Normal rate and regular rhythm. Pulmonary: Effort: Pulmonary effort is normal. Breath sounds: Normal breath sounds. Abdominal: General: Abdomen is flat. Palpations: Abdomen is soft. Musculoskeletal: Right lower leg: No edema. Left lower leg: No edema. Neurological: Mental Status: She is alert. Follow Up: Follow up for 6 weks televisit obesity . Current Outpatient Medications on File Prior to Visit Medication Sig Dispense Refill acetaminophen (Tylenol) 500 MG tablet Take 2 tablets (1,000 mg) by mouth every 6 (six) hours if needed for moderate pain or fever for up to 40 doses. 40 tablet 1 albuterol (Proventil HFA) 108 (90 Base) MCG/ACT inhaler INHALE 2 PUFFS EVERY 4 HOURS NEEDED FOR WHEEZING OR SHORTNESS OF BREATH. 6.7 g 11 Alcohol Swabs 70 % pads Use to test blood sugar 2 times daily 100 each 2 baclofen (Lioresal) 20 MG tablet TAKE 1 TABLET BY MOUTH THREE TIMES DAILY NEEDED FOR PAIN baclofen (Lioresal) 20 MG tablet TAKE 1 TABLET BY MOUTH THREE TIMES DAILY NEEDED FOR PAIN 60 tablet 3 Blood Glucose Monitoring Suppl (FreeStyle Largo Lite) w/Device kit Use to test blood sugar 2 times daily 1 kit 0 D3 Super Strength 50 MCG (2000 UT) [...] tip and replace cap. 16 g 12 FREESTYLE LITE test strip Use to test blood sugar 2 times daily 100 each 12 ibuprofen 800 MG tablet TAKE 1 TABLET BY MOUTH THREE TIMES DAILY WITH FOOD NEEDED (for pain) 90 tablet 0 Lancets misc Use to test blood sugar 2 times daily 100 each 2 loratadine (Claritin) 10 MG tablet TAKE 1 TABLET BY MOUTH EVERY DAY NEEDED FOR ALLERGIES 90 tablet 0 Spacer/Aero-Holding Chambers (OptiChamber Neena) misc 1 each every 4 (four) hours if needed (asthma). 1 each 0 No current facility-administered medications on file prior to visit. Problem List Items Addressed This Visit Vitamin D deficiency Relevant Medications cholecalciferol (Vitamin D-3) 50 MCG (2000 UT) capsule Class 3 severe obesity due to excess calories with serious comorbidity and body mass index (BMI) of50.0 to 59.9 in adult ([facility]) I will start patient on zepbound, medication side effects and contraindications where reviewed Patient is currently not a candidate for phentermine due to high blood pressure readings RTC 6 weeeks Relevant Medications Tirzepatide-Weight Management (Zepbound) 2.5 MG/0.5ML solution auto-injector Left hand pain - Primary Relevant Orders XR Hand 3+ Views Left (Completed) Referral to Hand Surgery Left hip pain Elevated blood pressure reading Patient with previous readings of high blood pressure, I advise weight loss and low Na diet I also advise to monitor BP at home and report back to me documented in this encounter Miscellaneous Notes * Assessment & Plan Note - Keshia Mota MD - 11/12/2024 3:50 PM EST Associated Problem(s): Elevated blood pressure reading Patient with previous readings of high blood pressure, I advise weight loss and low Na diet I also advise to monitor BP at home and report back to me * Assessment & Plan Note - Keshia Mota MD - 10/25/2024 3:22 PM EST Associated Problem(s): Class 3 severe obesity due to excess calories with serious comorbidity and body mass index (BMI) of 50.0 to 59.9 in adult ([facility]) I will start patient on zepbound, medication side effects and contraindications where reviewed Patient is currently not a candidate for phentermine due to high blood pressure readings RTC 6 weeeks documented in this encounter Plan of Treatment Upcoming Encounters Date Type Department Care Team (Late st Contact Info) Description 12/09/2024 2:30 PM EST Telemedicine [facility] [address] [place] [address] Keshia Beck MD [address] [facility] [place] [address] Scheduled Referrals Name Type Priority Associated Diagnoses Orde r Schedule Referral to Hand Surgery Outpatient Referral Routine Left hand pain Expected: 10/25/2024 (Approximate), Expires: 10/25/2025 documented as of this encounter Procedures Procedure Name Priority Date/Time Associated Diagnosis Comments XR HAND 3+ VIEWS LEFT Routine 11/02/2024 2:27 PM EST Left hand pain documented in this encounter Results * XR Hand 3+ Views Left (11/02/2024 2:27 PM EST) Anatomical Region Laterality Modality Upper Extremities, Hand Left Radiogra phic Imaging 11/02/2024 2:27 PM EST Narrative 11/02/2024 2:28 PM EST ? [facility] ?[address] ?[place] [address] ?XRay Report ? Signed ? Patient: Marina Pena ?MR ?? #: [id number] ? : 1985 ?Acct:[id number] ? Age/Sex: 39 / F ?ADM Date: 10/29/24 ? Loc: HO.XRAY ? Attending Dr: Keshia Mota MD ? Ordering Physician: Keshia Beck MD ?? Date of Service: 10/29/24 ?? Procedure(s): XR hand LT min 3V ?? Accession Number(s): [id number] ? cc: Barciona MotaKeshia rojas MD ? CLINICAL HISTORY: pain ? 3 [...] ? 11/02/241426 ? DD/ 26 ? TD/TT: 11/02/24 142 ? Marketing Traffic Manager: ? Procedure Note Donotflaviater, Image - 11/02/[address] [address] XRay Report Signed Patient: Marina PenaMR #: [id number] : 1985Acct:[id number] Age/Sex: 39 / FADM Date: 10/29/24 Loc: HO.[facility] Attending Dr: Keshia Mota MD Ordering Physician: Keshia Beck MD Date of Service: 10/29/24 Procedure(s): XR hand LT min 3V Accession Number(s): [id number] cc: Keshia Beck MD CLINICAL HISTORY: pain [...] signed by Bibiana Heaton MD in OV> 11/02/241426 DD/ 26 TD/TT: 11/02/241426 Marketing Traffic Manager: us Keshia Mota MD IMG XR PROCEDURES Fin al Result documented in this encounter Visit Diagnoses Diagnosis Left hand pain- Primary Pain in soft tissues of limb Vitamin D deficiency Class 3 severe obesity due to excess calories with serious comorbidity and body mass index (BMI) of 50.0 to 59.9 in adult (CMS/HCC) Left hip pain Pain in joint, pelvic region and thigh Elevated blood pressure reading Elevated blood pressure reading without diagnosis of hypertension documented in this encounter Additional Health Concerns Assessment Noted Time PHQ-9 Depression Total Score: 0 10/25/20 24 10:14 AM EST documented as of this encounter Care Teams United [place] Marshal Relationship Specialty Start Date End Date Keshia Beck MD [address] [place] [phone] PCP - General Family Medicine 07/08/18 documented as of this encounter
--- OUTSIDE RECORDS SUMMARY | 2024-11-17 08:20 | XMS_ITS | Encounter Summary ---
Author Organization [employer] Address [address] [facility] 7t [place] [address] Care Team Providers Care Warehouse Representative Name Role Phone Keshia Beck MD Primary Care Provide r Reason for Visit * Reason Onset Date Comments Chart Prep 10/22/2024 Encounter Details Date Type Department Care Team ([facility] Contact Info) Description 10/22/2024 Telephone [facility] [address] [place] [address] Kristin Fry MA Chart Prep Social History Tobacco Use Types Packs/Day Years Used Date Smoking Tobacco: Never Smokeless Tobacco: Never Depression Answer Date Recorded Patient Health Questionnaire-9 Score 0 09/03/2023 Patient Health Questionnaire-9 Score 0 09/03/2023 Last PHQ-9: Questionnaire Data Not on file 1 11/03/2022 Housing Stability Answer Date Recorded What is [...] Date Recorded Patient Health Questionnaire-2 Score 0 09/03/2023 Internet Access Answer Date Recorded Internet Access [...] encounter Miscellaneous Notes * Telephone Encounter - Kristin Fry MA - 10/22/2024 12:53 PM EST Chart Prep Labs: done Images: done Vaccines due: yes Referrals: pending appt Screenings: Foot Exam Overdue care gaps: PHQ-9, JAVIER-7 documented in this encounter Plan of Treatment Upcoming Encounters Date Type Department Care Team (Late st Contact Info) Description 12/09/2024 2:30 PM EST Telemedicine [facility] [address] [place], [place] [phone] Keshia Beck MD [address] [place] [phone] documented as of this encounter Visit Diagnoses Not on filedocumented in this encounter Additional Health Concerns Assessment Noted Time PHQ-9 Depression Total Score: 0 09/03/20 23 3:08 PM EST documented as of this encounter Care Teams Warehouse Representative Relationship Specialty Start Date End Date Keshia Beck MD [address] [place] [address] [phone] PCP - General Family Medicine 07/08/18 documented as of this encounter
--- OUTSIDE RECORDS SUMMARY | 2024-11-17 08:20 | XMS_ITS | Encounter Summary ---
Author Organization [employer] Address [address] [facility] 7t [place] [address] Care Team Providers Care Refrigeration Mechanic Name Role Phone Keshia Beck MD Primary Care Provide r Encounter Details Date Type Department Care Team (Latest Contact Info) Description 10/25/2024 Travel Social History Tobacco Use Types Packs/Day [...] 12/09/2024 2:30 PM EST Telemedicine [facility] [address] [place] [phone] Keshia Beck MD [address] [place] [phone] documented as of this encounter Visit Diagnoses Not on filedocumented in this encounter Additional Health Concerns Assessment Noted Time PHQ-9 Depression Total Score: 0 10/25/20 24 10:14 AM EST documented as of this encounter Care Teams Refrigeration Mechanic Relationship Specialty Start Date End Date Keshia Beck MD [address] [place] [phone] PCP - General Family Medicine 07/08/18 documented as of this encounter
--- OUTSIDE RECORDS SUMMARY | 2024-11-17 08:21 | XMS_ITS | Encounter Summary ---
Author Organization [employer] Address [address] [facility] 7t [place] [address] Care Team Providers Care Bag Machine Adjuster Name Role Phone Keshia Beck MD Primary Care Provide r Encounter Details Date Type Department Care Team (Late Contact Info) Description 02/17/2023 Orders Only [facility] [address] [place], [place] [phone] Marina Fair LPN Social History Tobacco Use Types Packs/Day Years Used Date Smoking Tobacco: Never Smokeless Tobacco: Never Comments No Sex and Gender Information Value Date Recorded Sex Assigned at Female 08/26/2022 10:16 AM EDT Legal Sex Female 10:16 AM EDT Gender Identity Female 08/26/2022 10:16 AM EDT Sexual Orientation Straight 08/26/2022 10 :16 AM EDT COVID-19 Exposure Response Date Recorded In the last 10 days, have yo u been in contact with someone who was confirmed or suspected to have Coronavirus/COVID-19? No / Unsure 01/23/2023 1:21 PM EDT documented as of this encounter Plan of Treatment Upcoming Encounters Date Type Department Care Team (Late Contact Info) Description 12/09/2024 2:30 PM EST Telemedicine [facility] [address] [place], [place] [phone] Keshia Beck MD [address] [place], [place] [phone] documented as of this encounter Visit Diagnoses Not on filedocumented in this encounter Care Teams Bag Machine Adjuster Relationship Specialty Start Date End Date Keshia Beck MD [address] [place] [address] PCP - General Family Medicine 07/08/18 documented as of this encounter
== END 2024-11-17 08:15 | disposition home or self-care (01) ==
LOC: HO.HOSX 08:14
DX: M79.642 Pain in left hand (principal)
CPT/HCPCS: 73130; 99212

== ENCOUNTER 2024-11-17 08:50 | Outpatient (AMB) | payer MEDICAID, SELFPAY ==
--- NOTE | 2024-11-17 08:52 | MHC.OFFVIS ---
Vital Signs 11/17/24 08:53 Height 5 ft 5 in Weight 310 lb BMI 51.6 Intake Visit Reasons: New Pt - left hand pain Intake Note: Pt presents to the office today for left hand pain x1 year. Pt denies any previous surgeries or injections in her left hand. Pt denies any previous injury to her hand. Pt states the pain is mainly in her left thumb. Phlebotomist Medical Lab Assistant Required: Yes Phlebotomist Medical Lab Assistant Language: Analytical Laboratory Technician Services: Phlebotomist Medical Lab Assistant Present Phlebotomist Medical Lab Assistant Name: Rigo([id number]) Allergies penicillin V Allergy (Unknown, Verified 11/17/24 08:53) rash Penicillins [PENICILLINS] Allergy (Unknown, Verified 11/17/24 08:53) RASH HPI HPI New Pt - left hand pain: Details: Pt presents to the office today for left hand pain x1 year. Pt denies any previous surgeries or injections in her left hand. Pt denies any previous injury to her hand. Pt states the pain is mainly at the base of the left thumb. Patient states no tenderness with palpation or with most range of motion, but does report that she has pain with full extension of the left thumb. Patient reports pain is primarily circumferential around the base of the left thumb. Denies any numbness or tingling hand. No other acute complaints or concerns at this time. [facility] Medical History Morbid obesity with BMI of 50.0-59.9, adult History of menorrhagia Glaucoma Sleep apnea Surgical History History of hysteroscopy S/P Social History Alcohol intake: never Gender identity: Female Female Reproductive History Menstrual Age of Menarche: 11 Review of Systems Const All systems reviewed & are unremarkable except as noted in HPI and below Physical Exam Vital Signs: BMI result Body Mass Index 51.6 Extrem Other: Patient is alert, oriented, and in no acute distress. Neuro: Normal sensation of the tips of all digits of the left hand at this time Vascular: Cap refill brisk Pain: No pain with palpation of the base of the left thumb, radial styloid, ulnar styloid, DRUJ, anatomical snuffbox, or elsewhere in the left thumb or wrist No pain with flexion of the digits of the left hand Patient does report pain full extension of the left thumb ROM: Patient is able to make a closed fist with all digits of the left hand without difficulty With encouragement, patient is able to extend all digits of the left hand fully, but with some discomfort in the left thumb Skin: No lacerations or abrasions. General: No ecchymosis, erythema, or evidence of infection. Psych: Appears grossly normal Affect normal Attitude cooperative Results Reviewed Results Reviewed: X-rays obtained in the office today and independently reviewed by me, Rivera Joseph PA-C, demonstrate no fracture or acute bony abnormality of the left hand. Assessment & Plan Assessment & Plan (1) Stiffness of left hand joint: Code(s): M25.642 - Stiffness of left hand, not elsewhere classified Category: Medical Plan 1. Stiffness of left thumb Ongoing for approximately 1 year Patient is educated about this condition Patient is educated about the typical recovery course At this time, patient was referred to occupational therapy for range of motion and strengthening of the left hand, particularly of the left thumb Patient was informed that she can continue with range of motion before meeting with OT Patient is advised on conservative pain management measures for pain control prior to starting OT Patient was amenable to this plan Patient will follow-up as needed with any acute concerns Orders: Orders XR hand LT min 3V Today M79.642 - Pain in left hand OT Evaluation and Treatment Today M25.642 - Stiffness of left hand, not elsewhere classified Coding Level of Care Code New Pt Level 3 (06011) Diagnoses Stiffness of left hand joint M25.642
[2024-11-17 08:53] VITALS: BMI 51.6
--- OUTSIDE RECORDS SUMMARY | 2024-11-17 09:06 | XMS_ITS | Clinical Summary ---
Author Organization [employer] Address [address] [place] [address] Care Team Providers Care Nuclear Instructor Name Role Phone Keshia Beck MD Primary [...] FREESTYLE LITE test stripIndication s:Newly diagnosed diabetes ([facility]) Use to test blood sugar 2 times daily 100 each 12 09/06/20 24 025 Active Lancets miscIndications :Newly diagnosed diabetes ([facility]) Use to test blood sugar 2 times daily 100 each 2 09/06/20 24 Active Alcohol Swabs 70 % padsIndications :Newly diagnosed diabetes ([facility] Use to test blood sugar 2 times daily 100 each 2 09/06/20 24 Active Blood Glucose Monitoring Suppl (FreeStyle [place] Lite) w/Device kitIndications: Newly diagnosed diabetes ([facility]) Use to test blood sugar 2 times [...] (BMI) of 50.0 to 59.9 in adult ([facility]) Inject 0.5 mL (2.5 mg) under the [...] Type Department Care Team Description 11/10/2024 Telephone [facility] [address] [place] [address] Keshia Beck MD Prior Authorization 10/29/2024 Refill [facility] [address] [place] [address] Keshia Bekc MD Newly diagnosed diabetes ([facility]) 10/28/2024 Telephone [facility] [address] [place] [address] Keshia Beck MD 10/26/2024 Travel 10/26/[address] [address] Keshia Beck MD Prior Authorization ( PA Request: [employer]) 10/25/2024 10:00 AM EST Office Visit [address] [address] Keshia Beck MD Left hand pain (Primary Dx); Vitamin D deficiency; Class 3 severe obesity due to excess calories with serious comorbidity and body mass index (BMI) of 50.0 to 59.9 in adult (CMS/HCC); Left hip pain; Elevated blood pressure reading 10/25/2024 Travel 10/22/[address] [address] Kristin Fry [place] Chart Prep 09/06/2024 9:15 AM EST Office Visit [address] [address] Keshia Beck MD Newly diagnosed diabetes (CMS/HCC) (Primary Dx); Class 3 severe obesity due to excess calories with serious comorbidity and body mass index (BMI) of 50.0 to 59.9 in adult (CMS/HCC); Obstructive sleep apnea syndrome; Polyarthralgia; Encounter for preventive care; Dietary counseling; Exercise counseling 09/06/2024 Travel 09/03/2024 9:40 AM EST Office Visit [facility] [address] [place] [phone] Nicholas Lugo MD Influenza-like symptoms (Primary Dx) 09/03/2024 Refill [facility] [address] [place] [address] ErastoSimin FNP 08/27/2024 Patient Outreach [address] [address] Keshia Beck MD Pre-visit Planning (SDOH screening negative and tobacco screening negative) 08/24/2024 Refill [facility] [address] [place], [place] [phone] Keshia Beck MD Influenza-like symptoms from Last [...] Info) Description 12/09/2024 2:30 PM EST Telemedicine [facility] [address] [place], [place] [phone] Keshia Beck MD [address] [place], [place] [phone] Health Maintenance Due Date Last Done Comments [...] EST Narrative 11/02/2024 2:28 PM EST ? [facility] ?[address] ?[place] [address] ?XRay Report ? Signed ? Patient: Marina Pena ?MR ?? #: [id number] ? : 1985 ?Acct:[id number] ? Age/Sex: 39 / F ?ADM Date: 10/29/24 ? Loc: HO.XRAY ? Attending Dr: Keshia Mota MD ? Ordering Physician: Keshia Beck MD ?? Date of Service: 10/29/24 ?? Procedure(s): XR hand LT min 3V ?? Accession Number(s): [id number] ? cc: Keshia Beck MD ? CLINICAL [...] ? DD/ 26 ? TD/TT: 11/02/241426 ? Quality Assurance Monitor Body: ? Procedure Note Tremayne Nieves - 11/02/[address] [address] XRay Report Signed Patient: Marina Pena #: [id number] : 1985Acct:[id number] Age/Sex: 39 / FADM Date: 10/29/24 Loc: INDIRA Attending Dr: Keshia Mota MD Ordering Physician: Keshia Beck MD Date of Service: 10/29/24 Procedure(s): XR hand LT min 3V Accession Number(s): [id number] cc: Keshia Beck MD CLINICAL HISTORY: pain [...] OV> 11/02/24 142 DD/ 26 TD/TT: 11/02/241426 Quality Assurance Monitor Body: us Keshia Mota MD IMG XR PROCEDURES Fin al Result * (ABNORMAL) Vitamin D, 25-Hydroxy, Total, Immunoassay (09/06/2024 10:00 AM EST) Vitamin D 25-OH Total 14.8(L) >30 ng/mL [facility] Comment:Health Based Referen ce Values*< 20 ng/mL Azasayzbx89-91 ng/mL Insufficient> 30 ng/mL Sufficient*Eliu MENDEZ. N [...] Mota MD LAB BLOOD ORDERABLES Final Result [facility] [address] [place] [phone] * TSH with Reflex to Free T4 (09/06/2024 10:00 AM EST) TSH reflex Free T4 3.09 0.32 - 4.0 uIU/mL [facility] Blood Venous blood specimen / Unknown 09/06/2024 10:00 AM EST 09/06/2024 11:06 AM EST us Keshia Mota MD LAB BLOOD ORDERABLES Final Result [facility] [address] [place] [address] [phone] * (ABNORMAL) CBC auto differential (09/06/2024 10:00 AM EST) White Blood Count 13.0(H) 4.8 - 10.8 X10*3/uL [facility] Red Blood Count 4.14(L) 4.20 - 5.50 X10*6/uL [facility] Hemoglobin 12.4 12.0 - 16.0 g/dl [facility] Hematocrit 38.1 37.0 - 47.0 % [facility] Mean Corpuscular Volume 92.0 80.0 - 98.0 fL [facility] Mean Corpuscular Hemoglobin 30.0 27.0 - 33.0 pg [facility] Mean Corpuscular HGB Conc 32.5 31.0 - 35.0 g/dl [facility] Red Cell Distribution Width 12.9 11.0 - 16.0 % [facility] Platelet Count 296 160 - 400 X10*3/uL [facility] Mean Platelet Volume 12.0 9.4 - 12.3 fL [facility] Neutrophils Percent Auto 71.7 45 - 73 % [facility] Imm Gran Pct Auto 0.4 0.0 - 0.4 % [facility] Lymphocytes Percent Auto 22.3 20 - 40 % [facility] Monocytes Percent Auto 4.0 2 - 11 % [facility] Eosinophils Percent Auto 1.4 0 - 4 % [facility] Basophils Percent Auto 0.2 0 - 2 % [facility] NRBC Pct Auto 0.0 0.0 - 0.2 /100WBC [facility] Neutrophils Absolute Auto 9.3(H) 2.0 - 8.3 x10*3/uL [facility] Imm Gran Abs Auto 0.05(H) 0.00 - 0.03 X10*3/uL [facility] Lymphocytes Absolute Auto 2.9 1.2 - 4.9 X10*3/uL [facility] Monocytes Absolute Auto 0.5 0.1 - 1.2 X10*3/uL [facility] Eosinophils Absolute Auto 0.2 0.0 - 0.4 X10*3/uL [facility] Basophils Absolute Auto 0.0 0.0 - 0.2 X10*3/uL [facility] NRBC Abs Auto 0.000 0.0 - 0.012 X10*3/uL [facility] Blood Venous blood specimen / Unknown 09/06/2024 10:00 AM EST 09/06/2024 11:06 AM EST us Keshia Mota MD LAB BLOOD ORDERABLES Final Result Performing Organization Address [facility] Co de Phone Number [facility] [address] [place] [phone] * Hepatitis C Antibody with Reflex to HCV, RNA, Quantitative, Real-Time PCR (09/06/2024 10:00 AM EST) Hepatitis C Antibody Nonreactive Nonreactive [facility] Comment:Antibodies to HCV no t detected; does not exclude early acuteHCV infection. Blood Venous blood specimen / Unknown 09/06/2024 10:00 AM EST 09/06/2024 11:06 AM EST Keshia Mota MD LAB BLOOD ORDERABLES Final Result Performing Organization Address City/[facility]/ZIP Co de Phone Number [facility] [address] [place] [address] [phone] * HIV-1/2 Antigen and Antibodies, Fourth Generation, with Reflexes (09/06/2024 10:00 AM EST) HIV AB/AG Nonreactive Nonreactive [facility] Comment:HIV-1 p24 Ag and/or HIV-1/HIV-2 Ab not detected.A test result that is nonreactive does not exclude thepossibility of exposure to or infection with HIV-1 and/orHIV-2. Nonreactive results in this assay for individualswith prior exposure to HIV-1 and/or HIV-2 may be due toantigen and antibody levels that are below the limit ofdetection of this assay.The [place] HIV Ag/Ab Combo assay result andsupplemental assay results should be interpreted inconjunction with the patient's clinical presentation,history and other laboratory results. If the results areinconsistent with clinical evidence, additional testing issuggested to confirm the result. Blood Venous blood specimen / Unknown 09/06/2024 10:00 AM EST 09/06/2024 11:06 AM EST us Keshia Mota MD LAB BLOOD ORDERABLES Final Result [facility] [address] [place] [phone] * (ABNORMAL) Lipid Panel, Standard (09/06/2024 10:00 AM EST) Triglycerides 250(H) <150 mg/dL [facility] Comment:Desirable Triglyceri de: less than 150 mg/dLBorderline High Triglyceride 150-199 mg/dLHigh Triglyceride: 200-499 mg/dLVery High Triglyceride: greater than or equal to 5OO mg/dL Cholesterol 140 <200 mg/dL [facility] Comment:Desirable Cholestero l: less than 200 mg/dLBorderline High Cholesterol: 200-239 mg/dLHigh Cholesterol: greater than 239 mg/dL LDL Cholesterol Calculated 44 <100 mg/dL [facility] Comment:Desirable LDL: less than 100 mg/dLNear Optimal/Above Optimal LDL: 110- 129 mg/dLBorderline High LDL: 130-159 mg/dLHigh LDL: 160-189 mg/dLVery High LDL: greater than or equal to 190 mg/dL HDL Cholesterol 46 >40 mg/dL [facility] Comment:Desirable HDL: great er than 40 mg/dL Note: This HDL assay may give artificially low results in patients with liver disease. Blood Venous blood specimen / Unknown 09/06/2024 10:00 AM EST 09/06/2024 11:06 AM EST us Keshia Mota MD LAB BLOOD ORDERABLES Final Result [facility] [address] [place] [address] [phone] * (ABNORMAL) Comprehensive Metabolic Panel (09/06/2024 10:00 AM EST) Sodium 139 135 - 145 mmol/L [facility] Potassium 3.9 3.3 - 5.1 mmol/L [facility] Chloride 111(H) 96 - 108 mmol/L [facility] Carbon Dioxide 21(L) 22 - 29 mmol/L [facility] Anion Gap 11(L) 12 - 20 [facility] Urea Nitrogen (BUN) 10 9 - 16 mg/dL [facility] Creatinine, Serum 0.63 0.5 - 1.4 mg/dL [facility] Estimated Glomerular Filt Rate >60 [facility] Comment:Chronic Kidney Disea se: Estimated GFR < 60 mL/min/1.65r8Cmwjyj Kidney Disease: Estimated GFR < 15 mL/min/1.73m2 Glucose 134(H) 60 - 115 mg/dL [facility] Calcium 8.7 8.4 - 10.2 mg/dL [facility] Bilirubin, Total 0.3 0.0 - 1.0 mg/dL [facility] Aspartate Amino Transferase 12 5 - 31 U/L [facility] Alanine Aminotransferase 7 0 - 31 U/L [facility] Total Protein 7.4 6.5 - 8.0 g/dL [facility] Albumin Level 3.5 3.5 - 5.0 g/dL [facility] Alkaline Phosphatase 64 39 - 117 U/L [facility] Blood Venous blood specimen / Unknown 09/06/2024 10:00 AM EST 09/06/2024 11:06 AM EST Keshia Mota MD LAB BLOOD ORDERABLES Final Result [facility] [address] [place] [phone] * (ABNORMAL) POCT HGB A1C (09/06/2024 9:22 AM EST) Hemoglobin A1C 6.9(A) 4.0 - 6.0 % QC Media Lot # [id number] Lot# Expiration Date Blood 09/06/2024 9:22 AM EST Keshia Mota MD POINT OF CARE TEST EN TER/EDIT ORDERABLES Final Result * POCT Glucose (09/06/2024 9:21 AM EST) Pathologist [facility] Glucose Blood, POC 102 60 - 200 mg/dL QC Media Lot # [id number] Lot# Expiration Date [id number] Blood Capillary blood specimen / Unknown 09/06/2024 9:21 AM EST Keshia Mota MD POINT OF CARE TEST EN TER/EDIT ORDERABLES Final Result * Influenza B (ID NOW Rapid Molecular) (09/03/2024 10:36 AM EST) Pathologist [facility] Influenza B Negative Negative, Indeterminate [facility] Swab 09/03/2024 10:3 6 AM EST us Nicholas Lugo MD POINT OF CARE TEST ENTER/EDIT OR DERABLES Final Result Performing Organization Address [facility] Co de Phone Number [facility] [address] [place] [phone] * Influenza A (ID NOW Rapid Molecular) (09/03/2024 10:36 AM EST) [facility] Influenza A Negative Negative, Indeterminate [facility] Swab 09/03/2024 10:3 6 AM EST us Nicholas Lugo MD POINT OF CARE TEST ENTER/EDIT OR DERABLES Final Result Performing Organization Address [facility] Phone Number [facility] [address] [place] [phone] * POCT Rapid COVID Ag (09/03/2024 10:36 AM EST) [facility] Rapid COVID Ag Negative [facility] Swab 09/03/2024 10:3 6 AM EST us Nicholas Lugo MD POINT OF CARE TEST ENTER/EDIT OR DERABLES Final Result Performing Organization Address [facility] Phone Number [facility] [address] [place] [phone] * POCT rapid strep A manually resulted (09/03/2024 10:36 AM EST) [facility] Rapid Strep A Screen Negative Negative, None Detected [facility] Swab 09/03/2024 10:3 6 AM EST us Nicholas Lugo MD POINT OF CARE TEST ENTER/EDIT OR DERABLES Final Result Performing Organization Address [facility] Co de Phone Number [facility] [address] [place] [phone] * Respiratory Viral Panel PCR (09/03/2024 10:07 AM EST) Adenovirus PCR Not Detected Not Detect. [facility] Bordetella pertussis PCR Not Detected Not Detect. [facility] Comment:Interpret results wi th caution. If B. pertussis isspecifically suspected, additional testing using analternate method is recommended. Bordetella parapertussis PCR Not Detected Not Detect. [facility] Chlamydia pneumoniae PCR Not Detected Not Detect. [facility] Coronavirus 229E PCR Not Detected Not Detect. [facility] Coronavirus HKU1 PCR Not Detected Not Detect. [facility] Coronavirus NL63 PCR Not Detected Not Detect. [facility] Coronavirus OC43 PCR Not Detected Not Detect. [facility] SARS-CoV-2 PCR Not Detected Not Detect. [facility] Comment:SARS-CoV-2 not detec leif by real-time RT-PCR.Note: If clinical suspicion for Sars-CoV-2 is high, continueto maintain precautions and consider repeat testing.Test results should be interpreted in the context ofclinical findings and other laboratory data.Rare polymorphisms exist that could lead to false-negativeor false-positive results. If results do not match theclinical findings, additional testing should be considered.Results reported to [facility].This test has been authorized by the FDA under the EmergencyUse Authorization (EUA) for use by authorized laboratories. Influenza A PCR Not Detected Not Detect. [facility] Influenza B PCR Not Detected Not Detect. [facility] Human metapneumovirus PCR Not Detected Not Detect. [facility] Rhino/Enterovirus PCR Not Detected Not Detect. [facility] Mycoplasma pneumoniae PCR Not Detected Not Detect. [facility] Parainfluenza 1 PCR Not Detected Not Detect. [facility] Parainfluenza 2 PCR Not Detected Not Detect. [facility] Parainfluenza 3 PCR Not Detected Not Detect. [facility] Parainfluenza 4 PCR Not Detected Not Detect. [facility] RSV PCR Not Detected Not Detect. [facility] Resp Panel NA Note See Note [facility] Comment:All results must be correlated with [...] assay is performed by Multiplexed PCR, utilizing [employer]. 09/03/2024 10:0 7 AM EST 09/03/2024 4:16 PM EST us Nicholas Lugo MD LAB BLOOD ORDERABLES Final Resul t [facility] [address] [place] [address] [phone] * HPV mRNA E6/E7 w/Reflex to HPV Genotypes 16, 18/45 (02/06/2023 10:12 AM EDT) HPV nRNA E6/E7 Not Detected Not Detected [facility] Comment:Methodology: Transcr iption-Mediated AmplificationThis assay detects E6/E7 viral messenger RNA (mRNA) from 14high-risk HPV types (16,18,31,33,35,39,45,51,52,56,58,59,66,68).Cervical sources are required for HPV testing.If a vaginal source from a patient who has had atotal hysterectomy with removal of cervix wassubmitted, please contact the testing laboratoryfor alternative testing options.For additional information, please refer tohttp://education.Promobucket/faq/TAE287u9(This link if provided for information/educational purposes only.)THIS TEST WAS PERFORMED AT:[employer] [place] [phone] BOB MD HPV mRNA E6/E7 [facility] HPV 16 RNA [facility] HPV 18/45 RNA [facility] 02/06/2023 10:1 2 AM EDT 02/07/2023 11:00 AM EDT [facility] External Provider LAB CYT OLOGY ORDERABLES Final Result [facility] [address] [place] [address] [phone] * Pap Smear (02/06/2023 10:12 AM EDT) 02/06/2023 10:1 2 AM EDT 02/07/2023 11:00 AM EDT Narrative [facility] - 02/27/2023 7:33 PM EDT ----- ------- Name: Marina Pena ?Age/Sex: 37/F ? : 1985 Unit#: [id number] ?? Attend Dr: Li Kendrick CNM ?Re02/06/23 ?Status: DEP REF ? Location: HO.LNP ?Disch: ? ----- ------- SPEC : [id number] ? RECD: 02/07/23-1100 ? STATUS: ??SOUT ? REQ NUM: [id number] ? LYNDON: 02/06/23-1012 ? SUBM DR: Li [...] 59, 66, 68) HPV testing performed by [employer], [place], [place]. ??See reference laboratory portion of the EMR for entire report. Addendum Signed (signature on file) Maribell Veliz 02/27/231932 ? ----- ------- ? Interpretation ?? Satisfactory for evaluation. ?? No endocervical cells seen. ?? Negative for intraepithelial lesion or malignancy. ?Clinical Information LMP: 01/30/23 Previous PAP test: 07/13/18, WNL ? Material Received ?? ThinPrep-Cervical Copies To: ?? Keshia Beck MD ?? [address] ?? [place] [address] ?? [phone] ?? Li Kendrick CNM ?? [address] [facility] ?? [place] [address] ?? [phone] ? CONTINUED ON NEXT PAGE ----- ------- Name: Marina Pena ?Age/Sex: 37/F ? : 1985 Unit#: [id number] ?? Attend Dr: Li Kendrick CNM ?Re02/06/23 ?Status: DEP REF ? Location: HO.LNP ?Disch: ? ----- ------- SPEC : [id number] ? RECD: 02/07/23-1099 ? STATUS: ??SOUT ? REQ NUM: [id number] ? LNYDON: 02/06/23-1012 ? SUBM DR: Li Kendrick CNM ? ENTERED: ??02/07/23 ?SP TYPE: Pap Smr ?OTHR : Keshia Beck MD ? ORDERED: ??Pap Smear ? ----- ------- Signed (signature on file) Marilee Arthur 02/10/23 1211 ? (signature on file) Maribell Veliz 02/27/231932 ? ----- ------- ? END OF REPORT ? us [facility] External Provider LAB CYT OLOGY ORDERABLES Final Result [facility] [address] [place] [address] [phone] from Last 3 Months or Most Recently Relevant to Health Maintenance Insurance [employer] Care Teams Nuclear Instructor Relationship Specialty Start Date End Date Keshia Beck MD [address] [place] [address] PCP - General Family Medicine 07/08/18
--- OUTSIDE RECORDS SUMMARY | 2024-11-17 09:06 | XMS_ITS | Encounter Summary ---
Author Organization [employer] Address [address] [facility] 7t [place] [address] Care Team Providers Care Plastic Shaper Name Role Phone Keshia Beck MD Primary [...] Info) Description 12/09/2024 2:30 PM EST Telemedicine [facility] MEDICINE [address] [place] [phone] Keshia Beck MD [address] [place] [address] documented as of this encounter Visit Diagnoses Not on filedocumented in this encounter Additional Health Concerns Assessment Noted Time PHQ-9 Depression Total Score: 0 10/25/20 24 10:14 AM EST documented as of this encounter Care Teams Plastic Shaper Relationship Specialty Start Date End Date Keshia Beck MD [address] [place] [address] PCP - General Family Medicine 07/08/18 documented as of this encounter
--- OUTSIDE RECORDS SUMMARY | 2024-11-17 09:06 | XMS_ITS | Encounter Summary ---
Author Organization [employer] Address [address] [facility] 7t [place] [address] Care Team Providers Care Shared Services Manager Name Role Phone Keshia Beck MD Primary Care Provide r Encounter Details Date Type Department Care Team (Late Contact Info) Description 02/17/2023 Orders Only [facility] CHC MED & PEDS [address] [place], [place] [phone] Marina Fair LPN Social History Tobacco Use [...] Info) Description 12/09/2024 2:30 PM EST Telemedicine [facility] MEDICINE [address] [place], [place] [phone] Keshia Beck MD [address] [place], [place] [phone] documented as of this encounter Visit Diagnoses Not on filedocumented in this encounter Care Teams Shared Services Manager Relationship Specialty Start Date End Date Keshia Beck MD [address] [place] [address] PCP - General Family Medicine 07/08/18 documented as of this encounter
--- OUTSIDE RECORDS SUMMARY | 2024-11-17 09:06 | XMS_ITS | Encounter Summary ---
Author Organization [employer] Address 75 [facility] 7t [place] [address] Care Team Providers Care Sole Molding Machine Operator Name Role Phone Keshia Beck MD Primary Care Provide r Reason for Visit * Reason Comments Med Refill Encounter Details Date Type Department Care Team ([facility] Contact Info) Description 10/29/2024 Refill [facility] MEDICINE [address] [place], [place] [phone] Keshia Beck MD [address] [place], [place] [phone] Newly diagnosed diabetes ([facility]/HCC) Social History Tobacco Use Types Packs/Day [...] 12/09/2024 2:30 PM EST Telemedicine [facility] MEDICINE [address] [place] [address] Keshia Beck MD [address] [place] [address] documented as of this encounter Visit Diagnoses Diagnosis Newly diagnosed diabetes ([facility]) Type II or unspecified type diabetes mellitus without mention of complication, not stated as uncontrolled documented in this encounter Additional Health Concerns Assessment Noted Time PHQ-9 Depression Total Score: 0 10/25/20 24 10:14 AM EST documented as of this encounter Care Teams Sole Molding Machine Operator Relationship Specialty Start Date End Date Keshia Beck MD [address] [place], [place] [phone] PCP - General Family Medicine 07/08/18 documented as of this encounter
--- OUTSIDE RECORDS SUMMARY | 2024-11-17 09:06 | XMS_ITS | Encounter Summary ---
Author Organization [employer] Address [address] [facility] 7t [place] [address] Care Team Providers Care Central Processing Tech Name Role Phone Keshia Beck MD Primary Care Provide r Reason for Visit * Reason Onset Date Comments Chart Prep 10/22/2024 Encounter Details Date Type Department Care Team ([facility] Contact Info) Description 10/22/2024 Telephone [facility] MEDICINE [address] [place] [address] Kristin Fry MA Chart Prep Social History [...] Info) Description 12/09/2024 2:30 PM EST Telemedicine [facility] MEDICINE [address] [place], [place] [phone] Keshia Beck MD [address] [place] [address] documented as of this encounter Visit Diagnoses Not on filedocumented in this encounter Additional Health Concerns Assessment Noted Time PHQ-9 Depression Total Score: 0 09/03/20 23 3:08 PM EST documented as of this encounter Care Teams Central Processing Tech Relationship Specialty Start Date End Date Keshia Beck MD [address] [place] [address] [phone] PCP - General Family Medicine 07/08/18 documented as of this encounter
--- OUTSIDE RECORDS SUMMARY | 2024-11-17 09:06 | XMS_ITS | Encounter Summary ---
Author Organization [email or web address] Address [address] [facility] 7t [place] [address] Care Team Providers Care Reading Specialist Name Role Phone Keshia Beck MD Primary [...] EST Telemedicine [facility] MEDICINE [address] [place] [phone] Keshia Beck MD [address] [place] [phone] documented as of this encounter Visit Diagnoses Not on filedocumented in this encounter Additional Health Concerns Assessment Noted Time PHQ-9 Depression Total Score: 0 10/25/20 24 10:14 AM EST documented as of this encounter Care Teams Reading Specialist Relationship Specialty Start Date End Date Keshia Beck MD [address] [place] [phone] PCP - General Family Medicine 07/08/18 documented as of this encounter
--- OUTSIDE RECORDS SUMMARY | 2024-11-17 09:06 | XMS_ITS | Encounter Summary ---
Author Organization [employer] Address 75 [facility] 7t [place] [address] Care Team Providers Care Emergency Vehicle Driver Name Role Phone Keshia Beck MD Primary Care Provide r Reason for Visit * Reason Onset Date Comments Prior Authorization 11/10/2024 Encounter Details Date Type Department Care Team ([facility] Contact Info) Description 11/10/2024 Telephone [facility] MEDICINE [address] [place] [address] Keshia Beck MD 230 [place] [address] Prior Authorization Social History Tobacco Use Types [...] regarding RX Zepbound PA was denied. Per [facility] patients need to trial oral medications such [...] Info) Description 12/09/2024 2:30 PM EST Telemedicine [facility] MEDICINE [address] [place] [address] Keshia Beck MD [address] [place] [address] documented as of this encounter Visit Diagnoses Not on filedocumented in this encounter Additional Health Concerns Assessment Noted Time PHQ-9 Depression Total Score: 0 10/25/20 24 10:14 AM EST documented as of this encounter Care Teams Emergency Vehicle Driver Relationship Specialty Start Date End Date Keshia Beck MD [address] [place] [address] PCP - General Family Medicine 07/08/18 documented as of this encounter
--- OUTSIDE RECORDS SUMMARY | 2024-11-17 09:06 | XMS_ITS | Encounter Summary ---
Author Organization [employer] Address 75 [facility] 7t [place] [address] Care Team Providers Care Surgical Elastic Knitter Hand Frame Name Role Phone Keshia Beck MD Primary Care Provide r Reason for Referral * Consultation (Routine) - Authorized Specialty Diagnoses / Procedures Referred By Contyovanny abarca Referred To Contact Hand Surgery Diagnoses Left hand pain Keshia Beck MD [address] [place] [address] Phone: tel: fax: [facility] [address] [place] [address] Phone: tel: Referral ID Status Reason Start Date Expiration Date Visits Requested Visits Authorized [id number] Authorized Specialty Services Required 4 10/26/2025 6 6 Encounter Details Date Type Department Care Team (Late st Contact Info) Description 10/25/2024 10:00 AM EST Office Visit [facility] MEDICINE [address] [place] [address] [phone] Keshia Beck MD [address] [place] [address] [phone] Left hand pain (Primary Dx); Vitamin D [...] tablet 3 Blood Glucose Monitoring Suppl (FreeStyle Boaz Lite) w/Device kit Use to test blood [...] index (BMI) of50.0 to 59.9 in adult ([facility]) I will start patient on [...] (BMI) of 50.0 to 59.9 in adult ([facility]) I will start patient on zepbound, medication side effects and contraindications where reviewed Patient is currently not a candidate for phentermine due to high blood pressure readings RTC 6 weeeks documented in this encounter Plan of Treatment Upcoming Encounters Date Type Department Care Team (Late st Contact Info) Description 12/09/2024 2:30 PM EST Telemedicine [facility] MEDICINE [address] [place] [address] Keshia Beck MD 230 [facility] [place] [address] Scheduled Referrals Name Type Priority Associated Diagnoses [...] EST Narrative 11/02/2024 2:28 PM EST ? [facility] ?[address] ?[place] [address] ?XRay Report ? Signed ? Patient: Marina Pena ?MR ?? #: [id number] ? : 1985 ?Acct:[id number] ? Age/Sex: 39 / F ?ADM Date: 10/29/24 ? Loc: HO.XRAY ? Attending Dr: Keshia Mota MD ? Ordering Physician: Keshia Beck MD ?? Date of Service: 10/29/24 ?? Procedure(s): XR hand LT min 3V ?? Accession Number(s): [id number] ? cc: Barciona MotaKeshia rojas MD ? [...] DD/ 26 ? TD/TT: 11/02/24 142 ? Supervisor [employer]: ? Procedure Note Donotflaviater, Image - 11/02/[address] [address] XRay Report Signed Patient: Marina PenaMR #: [id number] : 1985Acct:[id number] Age/Sex: 39 / FADM Date: 10/29/24 Loc: HO.[place] Attending Dr: Keshia Mota MD Ordering Physician: Keshia Beck MD Date of Service: 10/29/24 Procedure(s): XR hand LT min 3V Accession Number(s): [id number] cc: Keshia Beck MD CLINICAL HISTORY: pain [...] in OV> 11/02/241426 DD/ 26 TD/TT: 11/02/241426 Supervisor [employer]: us Keshia Mota MD IMG XR PROCEDURES [...] documented as of this encounter Care Teams Surgical Elastic Knitter Hand Frame Relationship Specialty Start Date End Date Keshia Beck MD [address] [place] [phone] PCP - General Family Medicine 07/08/18 documented as of this encounter
--- OUTSIDE RECORDS SUMMARY | 2024-11-17 09:06 | XMS_ITS | Encounter Summary ---
Author Organization [employer] Address [address] [facility] 7t [place] [address] Care Team Providers Care Food And Drug Inspector Name Role Phone Keshia Beck MD Primary Care Provide r Encounter Details Date Type Department Care Team ([facility] Contact Info) Description 10/28/2024 Telephone [facility] MEDICINE [address] [place] [address] Keshia Beck MD [address] [place] [address] Social History Tobacco Use Types Packs/Day Years [...] 11/04/2024 9:40 AM EST Received fax from [employer] [facility] for Denial for Zepbound 2.5mg. Fax sent to scan * Telephone Encounter - Alexandra Spence - 10/28/2024 4:30 PM EST Patient has [employer], no longer requires PA for Zepbound. * Telephone Encounter - Alexandra Spence - 10/28/2024 4:30 PM EST ----- Message from Keshia Mota MD sent at 10/25/2024 10:29 AM EST ----- Please generate PA for zepbound thank you documented in this encounter Plan of Treatment Upcoming Encounters Date Type Department Care Team (Late st Contact Info) Description 12/09/2024 2:30 PM EST Telemedicine [facility] MEDICINE [address] [place] [address] Keshia Beck MD [address] [place] [address] documented as of this encounter Visit Diagnoses Not on filedocumented in this encounter Additional Health Concerns Assessment Noted Time PHQ-9 Depression Total Score: 0 10/25/20 24 10:14 AM EST documented as of this encounter Care Teams Food And Drug Inspector Relationship Specialty Start Date End Date Keshia Beck MD [address] [place] [address] PCP - General Family Medicine 07/08/18 documented as of this encounter
--- OUTSIDE RECORDS SUMMARY | 2024-11-17 09:06 | XMS_ITS | Encounter Summary ---
Author Organization [employer] Address 75 [facility] 7t [place] [address] Care Team Providers Care Hospital Internship Name Role Phone Keshia Beck MD Primary Care Provide r Reason for Visit * Reason Onset Date Comments Prior Authorization 10/26/2024 DEVON AVALOS Reques t: Zepbound Encounter Details Date Type Department Care Team ([facility] Contact Info) Description 10/26/2024 Telephone [facility] MEDICINE [address] [place] [address] Keshia Beck MD [address] [place] [address] Prior Authorization (DEVON AVALOS Request: Zepbound) Social [...] PA for Zepbound signed and faxed to [employer]. Confirmation received and sent to scan. If patient calls to check status on above, please advise them to contact [facility] at [phone]. * Telephone Encounter - Alexandra Spence - 10/26/2024 9:28 AM EST PA for Zepbound from [facility] placed on PCP desk for signature. documented in this encounter Plan of Treatment Upcoming Encounters Date Type Department Care Team (Late st Contact Info) Description 12/09/2024 2:30 PM EST Telemedicine [facility] MEDICINE [address] [place] [address] Keshia Beck MD [address] [place] [address] documented as of this encounter Visit Diagnoses Not on filedocumented in this encounter Additional Health Concerns Assessment Noted Time PHQ-9 Depression Total Score: 0 10/25/20 24 10:14 AM EST documented as of this encounter Care Teams Hospital Internship Relationship Specialty Start Date End Date Keshia Beck MD [address] [place] [address] PCP - General Family Medicine 07/08/18 documented as of this encounter
== END 2024-11-17 09:21 | disposition home or self-care (01) ==
PROVIDERS: PCP Internal Medicine
DX: M25.642 Stiffness of left hand, not elsewhere classified (principal)
CPT/HCPCS: 99203

== ENCOUNTER 2025-04-13 07:47 | Outpatient (REF) | payer MEDICAID, SELFPAY ==
--- NOTE | ~2025-04-13 | MM_ITS ---
EXAMINATION: MM DIAGNOSTIC DIGITAL BREAST TOMOSYNTHESIS, BILATERAL Right limited ultrasound. CLINICAL INFORMATION: Several day history of right breast pain at 10:00 near the right axilla previously, patient does not have pain today. COMPARISON: Mammography: Comparison is made with relevant prior exams. TECHNIQUE: Digital breast mammography with tomosynthesis is performed in both the craniocaudal and mediolateral oblique views along with computer-aided detection (CAD). FINDINGS: There are scattered areas of fibroglandular density (ACR BI-RADS breast composition Category b). There are no significant masses, abnormal calcifications, or other abnormalities. Targeted color Doppler ultrasound scanning in the area of the patient's previously felt right axilla and breast pain from 7-11 o'clock demonstrates normal fibroglandular breast tissue and a few normal appearing intramammary low axillary lymph nodes. Results are provided to the patient at time of visit by the technologist. MM/MM tomosynthesis diagnostic BI IMPRESSION: No mammographic or sonographic abnormal findings to account for the patient's previously felt right breast pain and right axillary pain. Recommend clinical evaluation and follow-up. Normal intramammary and low axillary lymph nodes. Benign. ASSESSMENT: BI-RADS BI-RADS 2 - Benign Findings RECOMMENDATION: 1 year F/U This patient's information was entered into a reminder system with a target due date for their next mammogram. Electronically signed by: Deloris Berman DO 04/13/2025 08:52 AM EDT
--- OUTSIDE RECORDS SUMMARY | 2025-04-13 07:50 | XMS_ITS | Encounter Summary ---
Author Organization [employer] Address [address] [facility] 7t [place] [address] Care Team Providers Care Ballistics Expert Forensic Name Role Phone Keshia Beck MD Primary Care Provide r Reason for Visit * Reason Comments Med Refill Encounter Details Date Type Department Care Team ([facility] Contact Info) Description 11/24/2024 Refill [facility] MEDICINE [address] [place] [address] Keshia Beck MD [address] [place], [place] [phone] Polyarthralgia Social History Tobacco Use Types Packs/Day Years [...] Care Team (Late st Contact Info) Description 05/06/2025 9:45 AM EDT Office Visit [facility] MEDICINE [address] [place] [phone] Keshia Beck MD [address] [place] [address] documented as of this encounter Visit Diagnoses Diagnosis Polyarthralgia Pain in joint, multiple sites documented in this encounter Additional Health Concerns Assessment Noted Time PHQ-9 Depression Total Score: 0 10/25/20 24 10:14 AM EST documented as of this encounter Care Teams Ballistics Expert Forensic Relationship Specialty Start Date End Date Keshia Beck MD [address] [place] [address] PCP - General Family Medicine 07/08/18 documented as of this encounter
== END 2025-04-13 07:48 | disposition home or self-care (01) ==
LOC: HO.MAMMO 07:47
PROVIDERS: PCP Internal Medicine; Visit Provider Emergency Medicine
DX: N64.4 Mastodynia (principal)
CPT/HCPCS: 76642; 77062; 77066

== ENCOUNTER → 2025-04-13 07:50 | Outpatient (BNV) | payer MEDICAID, SELFPAY | PROVIDERS: PCP Internal Medicine; Visit Provider Internal Medicine | DX: N64.4 Mastodynia (principal) | CPT/HCPCS: 76642; 77062; 77066 ==

== ENCOUNTER 2025-06-21 15:00 | Outpatient (REF) | payer MEDICAID, SELFPAY ==
[2025-06-21 22:25] LABS: CT PCR NOT DETECTED (Not Detect.); NG PCR NOT DETECTED (Not Detect.)
== END 2025-06-21 15:01 | disposition home or self-care (01) ==
LOC: HO.LNP 15:00
PROVIDERS: PCP Internal Medicine; Visit Provider Obstetrics & Gynecology
DX: Z30.430 Encounter for insertion of intrauterine contraceptive device (principal)
CPT/HCPCS: 58300; 81025; 87491; 87591; 99212; J7298

== ENCOUNTER 2025-06-21 15:00 | Outpatient (AMB) | payer MEDICAID, SELFPAY ==
[2025-06-21 15:03] VITALS: BP 102/78; BMI 44.6
--- NOTE | 2025-06-21 15:03 | MHC.OFFVIS ---
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 The patient has been on control pills last 9 years. Diabetic on metformin, elevated BMI, history of AUB prior to initiating control pills now controlled since has been on control. LMP 2 days ago [facility] Medical History Morbid obesity with BMI of 50.0-59.9, adult History of menorrhagia Glaucoma Sleep apnea Surgical History History of hysteroscopy S/P Family History Father Diabetes Hypertension Mother Hypertension Social History Household Members: Children Housing: Apartment Alcohol intake: former Patient Tobacco Use Status: Never used Tobacco service: No Current occupational status: employed Current occupation: [employer] Sexually active: Yes Sexual orientation: Straight/Heterosexual Gender identity: Female Female Reproductive History Menstrual Age of Menarche: 11 Review of Systems Const All systems reviewed & are unremarkable except as noted in HPI and below Card Reports as per HPI Resp Reports as per HPI GI Reports as per HPI and Reports no additional complaints Reports as per HPI Physical Exam Vital Signs: Last Vital Signs BP 102/78 06/21/25 15:03 BMI result Body Mass Index 44.6 Const General: cooperative, healthy appearing and comfortable Chest Chest palpation & inspection: normal inspection of the chest and normal palpation of entire chest wall Breast/axilla inspection: normal inspection of the breasts and normal inspection of the axillae Breast/axilla palpation: normal palpation of the breasts, normal palpation of the axillae and no axillary lymphadenopathy Resp Effort & Inspection: normal respiratory effort Auscultation: clear to auscultation bilaterally Percussion: percussion normal Cardio Palpation: normal PMI Rate: regular rate Rhythm: regular rhythm Heart sounds: no murmurs and no rubs Peripheral pulses: Peripheral pulses 2+ throughout GI Inspection: Yes normal to inspection Palpation (GI): Soft to palpation, nontender, no guarding, not rigid and No hepatosplenomegaly present Percussion: Yes normal to percussion Auscultation: normal bowel sounds Rectal Exam - Female: deferred General: Yes bladder normal to palpation External Female Exam: No lesion Speculum Exam - Vagina: normal appearance of the vagina, normal palpation, normal vaginal discharge and not erythematous Speculum Exam - Cervix: normal appearance of the cervix and normal palpation Bimanual exam- vagina & uterus: normal bimanual exam, normal palpation, uterine size normal, bladder normal to palpation, consistency normal and normal palpation Bimanual Exam- Adnexa, other: normal adnexae, no masses and no tenderness Office Procedures IUD Insert/Removal Details Details: The patient is presenting for Mirena IUD insertion Urine test was done in the office and was negative; All the contraindications were excluded. The following possible complications were discussed with the patient: Intrauterine , Ectopic , Sepsis, Pelvic Infection, Irregular Bleeding and Amenorrhea, Perforation, Expulsion, Ovarian Cysts, Breast Cancer, The following adverse effects were discussed with the patient: alteration of menstrual bleeding pattern, including: unscheduled uterine bleeding decreased uterine bleeding increased scheduled uterine bleeding female genital tract bleeding ,amenorrhea , genital discharge , vulvovaginitis , breast pain , benign ovarian cyst and associated complications , dysmenorrhea , Gastrointestinal disorders abdominal/pelvic pain, headache/migraine , back pain , acne , depression Alternative options were discussed with the patient including but not limited: control pills, patch, NuvaRing, Depo-medroxyprogesterone acetate, Nexplanon, copper IUD, sterilization, vasectomy, others The procedure was explained in detail to patient , at the end patient signed the informed consent obtained. A no touch technique was used throughout the procedure. A speculum was placed into vagina and cervix was cleaned with betadine). A tenaculum was placed. A plastic sound was advanced through the external and internal os until it reached the fundus of the uterus, the depth was 8 cm. The sound was then withdrawn. The IUD was loaded in a sterile manner and advanced into position. The string was visualized and cut to 3 cm. Tenaculum site hemostatic. All instruments removed from vagina. Patient tolerated the procedure well. NO complications were noted. Patient was instructed to call for fever over 100.4, significant pain unrelieved by Motrin, IUD expulsion, heavy bleeding, or abnormal discharge. In addition, the following clinical considerations were discussed with the patient to call for removal: A stroke or heart attack ,Very severe or migraine headaches ,Unexplained fever ,Yellowing of the skin or whites of the eyes, as these may be signs of serious liver problems , or suspected , Pelvic pain or pain during sex ,HIV positive seroconversion in herself or her partner , Possible exposure to sexually transmitted infections Unusual vaginal discharge or genital sores , severe vaginal bleeding or bleeding that lasts a long time, or if she misses a menstrual period, Inability to feel Mirena's threads Counseled the patient that the IUD does not protect against STI's, recommended use of condoms for the first 7 days post insertion and explained to the patient that condoms are recommended for patients at risk for sexually transmitted infections. Informed the patient that Mirena IUD is FDA approved for 8 years for contraception for 5 years for the treatment of heavy menses Instructed the patient to schedule a Follow up appointment in 4 to 6 weeks following insertion. This note was generated with a voice recognition program. Some errors may have been overlooked during the review of this note. Sometimes these errors may affect the content or meaning of a given sentence. 79432-ESO Insertion Procedure code (CPT) selection complete Office Meds Mirena 21 mcg/24 hr (up to 8 years) 52 mg intrauterine device Performing Provider: Desean Garcia MD Performing Location: [facility] Documented (not given) by: Desean Garcia MD on 06/21/25 15:55 Dose Route Admin Location Dispensed Lot Number Expiration Date [facility] Safety Pin Assembling Machine Operator 1 device intrauterine ea Total Dispensed Waste n/a n/a Assessment & Plan Assessment & Plan (1) Family planning: Code(s): Z30.09 - Encounter for other general counseling and advice on contraception Category: Social Hx Plan: Discussed with the patient the different options of control including control pills/Nuvaring, DMPA, different types of IUD ?s ( cu vs progesterone) , sterilization. All the pros, cons, risks and benefits of each were discussed with the patient. The patient decided to go ahead with Mirena IUD, so a more detailed discussion was carried on including mechanism of action, risks (infection, uterine perforation, failure with ectopic , septic AB, ovarian cyst and pelvic pain, increased breast cancer risk and others) benefits (efficient contraceptive method, others), GC/CG were taken and since LMP was 2 days ago, Mirena IUD was inserted, see procedure note Orders: Orders AMB IUD Insertion/Removal - Practice Supplied Today Z30.430 - Encounter for insertion of intrauterine contraceptive device Medications: New Mirena (levonorgestrel) 1 device intrauterine ONCE 1 ea 0RF IUD insertion NS Z30.430 - Encounter for insertion of intrauterine contraceptive device Discontinued desogestrel-ethinyl estradiol 0.15-0.03 mg (Lisa) Patient to be evaluated by her primary care provider for general health concerns within this time Discontinued Reason: Doctor's Order 1 tab PO DAILY 84 tabs 0RF Coding Level of Care Code Est Pt Level 3 (44945) Procedure Only Diagnoses Family planning Z30.09 CPT Codes Details - CPT: 66864-GTG Insertion ([id number])
--- OUTSIDE RECORDS SUMMARY | 2025-06-21 15:55 | XMS_ITS | Encounter Summary ---
Author Organization [email or web address] Address [address] [facility] [address] [place] [address] Care Team Providers Care Bike Mechanic Name Role Phone Keshia Beck MD Primary Care Provide r Encounter Details Date Type Department Care Team ([facility] Contact Info) Description 01/14/2025 Orders Only [facility] MEDICINE [address] [place] [address] Keshia Beck MD [address] [place] [address] Social History Tobacco Use Types Packs/Day Years [...] as of this encounter Plan of Treatment Not on file documented as of this encounter Visit Diagnoses Not on filedocumented in this encounter Additional Health Concerns Assessment Noted Time PHQ-9 Depression Total Score: 0 10/25/20 24 10:14 AM EST documented as of this encounter Care Teams Bike Mechanic Relationship Specialty Start Date End Date Keshia Beck MD [address] [place] [address] PCP - General Family Medicine 07/08/18 documented as of this encounter
--- OUTSIDE RECORDS SUMMARY | 2025-06-21 15:55 | XMS_ITS | Encounter Summary ---
Author Organization [employer] Address [address] [facility] [address] [place] [address] Care Team Providers Care Certified Real Estate Appraiser Name Role Phone Keshia Beck MD Primary Care Provide r Encounter Details Date Type Department Care Team ([facility] Contact Info) Description 06/16/2025 Orders Only [facility] MEDICINE [address] [place], [place] [phone] Keshia Beck MD [address] [place] [address] Class 3 severe obesity due to excess calories with serious comorbidity and body mass index (BMI) of 50.0 to 59.9 in adult (Primary Dx) Social History Tobacco Use Types Packs/Day Years [...] as of this encounter Visit Diagnoses Diagnosis Class 3 severe obesity due to excess calories with serious comorbidity and body mass index (BMI) of 50.0 to 59.9 in adult- Primary documented in this encounter Additional Health Concerns Assessment Noted Time PHQ-9 Depression Total Score: 0 10/25/20 24 10:14 AM EST documented as of this encounter Care Teams Certified Real Estate Appraiser Relationship Specialty Start Date End Date Keshia Beck MD [address] [place] [address] PCP - General Family Medicine 07/08/18 documented as of this encounter
--- OUTSIDE RECORDS SUMMARY | 2025-06-21 15:55 | XMS_ITS | Encounter Summary ---
Author Organization [employer] Address [address] [facility] [address] [place] [address] Care Team Providers Care Technical Support Coordinator Name Role Phone Keshia Beck MD Primary Care Provide r Reason for Visit * Reason Onset Date Comments Prior Authorization 11/10/2024 Encounter Details Date Type Department Care Team ([facility] st Contact Info) Description 11/10/2024 Telephone [facility] MEDICINE [address] [place] [address] Keshia Beck MD [address] [place] [address] Prior Authorization Social History Tobacco Use Types [...] regarding RX Zepbound PA was denied. Per [facility] patients need to trial oral medications such as phentermine if clinically appropriate first. Please review and advise. * Telephone Encounter - Marianna Maxwell - 11/10/2024 9:50 AM EST Tc from pt notifying medication needs a PA Tirzepatide-Weight Management (Zepbound) 2.5 MG/0.5ML solution auto-injector documented in this encounter Plan of Treatment Not on file documented as of this encounter Visit Diagnoses Not on filedocumented in this encounter Additional Health Concerns Assessment Noted Time PHQ-9 Depression Total Score: 0 10/25/20 24 10:14 AM EST documented as of this encounter Care Teams Technical Support Coordinator Relationship Specialty Start Date End Date Keshia Beck MD [address] [place] [address] PCP - General Family Medicine 07/08/18 documented as of this encounter
--- OUTSIDE RECORDS SUMMARY | 2025-06-21 15:55 | XMS_ITS | Encounter Summary ---
Author Organization [employer] Address [address] [facility] [address] [place] [address] Care Team Providers Care Immigration Consultant Name Role Phone Keshia Beck MD Primary Care Provide r Reason for Visit * Reason Comments Med Refill Encounter Details Date Type Department Care Team ([facility] st Contact Info) Description 06/15/2025 Refill [facility] MEDICINE [address] [place] [address] Keshia Beck MD [address] [place] [address] Class 3 severe obesity due to excess calories with serious comorbidity and body mass index (BMI) of 50.0 to 59.9 in adult Social History Tobacco Use Types Packs/Day Years [...] (BMI) of 50.0 to 59.9 in adult documented in this encounter Additional Health Concerns Assessment Noted Time PHQ-9 Depression Total Score: 0 10/25/20 24 10:14 AM EST documented as of this encounter Care Teams Immigration Consultant Relationship Specialty Start Date End Date Keshia Beck MD [address] [place] [address] PCP - General Family Medicine 07/08/18 documented as of this encounter
--- OUTSIDE RECORDS SUMMARY | 2025-06-21 15:55 | XMS_ITS | Encounter Summary ---
Author Organization [employer] Address [address] [facility] [address] [place] [address] Care Team Providers Care Tribal Judge Name Role Phone Keshia Beck MD Primary Care Provide r Reason for Visit * Reason Comments Med Refill Encounter Details Date Type Department Care Team ([facility] Contact Info) Description 11/24/2024 Refill [facility] [address] [place] [address] Keshia Beck MD [address] [place], [place] [phone] Polyarthralgia Social History Tobacco Use Types Packs/Day [...] documented as of this encounter Care Teams Tribal Judge Relationship Specialty Start Date End Date Keshia Beck MD [address] [place] [id number] PCP - General Family Medicine 07/08/18 documented as of this encounter
--- OUTSIDE RECORDS SUMMARY | 2025-06-21 15:55 | XMS_ITS | Clinical Summary ---
Author Organization [employer] Address [address] [place] [address] Care Team Providers Care Fire Prevention Specialist Name Role Phone Keshia Beck MD [...] 08/25/20 24 025 Active Spacer[facility] miscIndications :Influenza-like symptoms 1 each every 4 (four) hours if needed (asthma). 1 each 09/03/20 24 Active FREESTYLE LITE test stripIndication s:Newly diagnosed diabetes ([facility]) Use to test blood sugar 2 times daily 100 each 12 09/06/20 24 025 Active Blood Glucose Monitoring Suppl (FreeStyle Herron Lite) w/Device kitIndications: Newly diagnosed diabetes ([facility]) Use to test blood sugar 2 times daily 1 kit 09/06/20 24 Active cholecalciferol (Vitamin D-3) 50 MCG (2000 UT) capsuleIndicati ons:Vitamin D deficiency Take 1 capsule (50 mcg) by mouth Once per day. 30 capsule 2 10/25/20 24 Active cyclobenzaprine (Flexeril) 10 MG tabletIndicatio ns:Left hip pain Take 1 tablet (10 mg) by mouth 3 times daily for 10 days. 30 tablet 10/25/20 24 Active topiramate (Topamax) 25 MG tabletIndicatio ns:Class 3 severe obesity due to excess calories with serious comorbidity and body mass index (BMI) of 50.0 to 59.9 in adult TAKE 1 TABLET BY MOUTH DAILY 30 tablet 1 02/03/20 25 Active acetaminophen (Tylenol) 500 MG tabletIndicatio ns:Polyarthralg ia Take 2 tablets (1,000 mg) by mouth every 6 (six) hours if needed for moderate pain or fever for up to 40 doses. 40 tablet 03/16/20 25 Active ibuprofen 400 MG tablet Take 1 tablet (400 mg) by mouth every 6 (six) hours if needed for moderate pain or fever for up to 30 doses. 30 tablet 03/16/20 25 Active lidocaine (Lidoderm) 5 % patch Apply 1 patch topically Once per day. Remove & discard patch within 12 hours or as directed by . 30 patch 2 03/16/20 25 026 Active Tirzepatide-Flavio ght Management (Zepbound) 5 MG/0.5ML solution auto-injectorIn dications:Class 3 severe obesity due to excess calories with serious comorbidity and body mass index (BMI) of 50.0 to 59.9 in adult Inject 0.5 mL (5 mg) under the skin 1 (one) time per week. INJECT ONE PEN (=5 MG) SUBCUTANEOUSLY ONCE A WEEK 2 mL 03/18/20 25 Active Alcohol Swabs (Alcohol Prep) 70 % padsIndications :Newly diagnosed diabetes (CMS/HCC) USE DIRECTED TO TEST BLOOD SUGAR TWICE DAILY 100 each 2 04/06/20 25 Active TRUEplus Lancets 33G miscIndications :Newly diagnosed diabetes ([facility]) USE DIRECTED TO TEST BLOOD SUGAR TWICE DAILY 100 each 2 04/06/20 25 Active metFORMIN (Glucophage) 500 MG tabletIndicatio ns:Newly diagnosed diabetes ([facility]/HCC) TAKE 1 TABLET BY MOUTH TWICE DAILY IN THE MORNING AND IN THE EVENING WITH MEALS 180 tablet 1 05/18/20 25 Active ibuprofen 800 MG tabletIndicatio ns:Polyarthralg ia TAKE 1 TABLET THREE TIMES DAILY WITH FOOD NEEDED FOR PAIN 90 tablet 05/18/20 25 Active Tirzepatide-Flavio ght Management (Zepbound) 7.5 MG/0.5ML solution auto-injectorIn dications:Class 3 severe obesity due to excess calories with serious comorbidity and body mass index (BMI) of 50.0 to 59.9 in adult Inject 0.5 mL (7.5 mg) under the skin every 7 (seven) days. 2 mL 05/19/20 25 Active Tirzepatide-Flavio ght Management (Zepbound) 10 MG/0.5ML solution auto-injectorIn dications:Class 3 severe obesity due to excess calories with serious comorbidity and body mass index (BMI) of 50.0 to 59.9 in adult Inject 0.5 mL (10 mg) under the skin 1 (one) time per week. 2 mL 06/16/20 25 Active Active Problems Problem Noted Date Diagnosed Date Type 2 diabetes mellitus wit hout complication, without long-term current use of insulin 12/09/2024 Assessment & Plan (03/11/2025 10:57 AM EDT): Diabetes is: controlled - Lab Results Component Value Date HGBA1C 5.8 03/11/2025 HGBA1C 6.9 (A) 09/06/2024 HGBA1C 6.7 (A) 09/03/2023 - Lab Results Component Value Date CREATININE 0.63 09/06/2024 -Changes: None - Diabetic eye exam: Up-to-date - Diabetic foot exam: Pending - Continue lifestyle modifications - Continue current medications - Follow up: 3 months Assessment & Plan (12/09/2024 3:43 PM EST): Patient reports her glucose levels has been fairly stable at home Advised to continue with metformin 50 mg twice a day Elevated blood pressure reading 11/12/2024 Assessment & [...] 59.9 in adult 09/06/2024 Assessment & Plan (03/11/2025 10:59 AM EDT): Patient tolerating well GLP-1, she should get next dose of 5 mg weekly of Zepbound on next refill Counseling about healthy diet and exercise done today Assessment & Plan (01/28/2025 11:08 AM EDT): Extensive counseling about healthy diet and exercise done today I will discontinue phentermine in light of her underlying condition of glaucoma, I will prescribe instead Zepbound 2.5 mg weekly and I will generate a PA for this Assessment & Plan (12/09/2024 3:43 PM EST): Extensive counseling about healthy diet and exercise done I will put patient on phentermine 15 mg plus topiramate 25 mg daily I will follow-up with patient in 4 weeks Assessment & Plan (11/12/2024 3:51 PM EST): I will start patient on zepbound, medication side effects and contraindications where reviewed Patient is currently not a candidate for phentermine due to high blood pressure readings RT 6 [facility] Assessment & Plan (09/06/2024 10:15 AM EST): [...] 08/14/2023 Loss of sense of smell 04/07/2018 Obstructive sleep apnea syndrome 03/26/2017 08/14/2023 Assessment & Plan (09/06/2024 10:16 AM EST): Continue to use CPAP every night Sleep medicine referral Morbid obesity 03/26/2017 08/14/2023 Irregular periods 03/26/2017 08/14/2023 Glaucoma 03/26/2017 08/14/2023 Assessment & Plan (01/28/2025 11:08 AM EDT): Continue to follow-up with ophthalmology and continue with same medication (eyedrops) prescribed by specialist Acanthosis nigricans 03/26/2017 08/14/2023 Encounters Date Type Department Care Team Description 06/16/2025 Orders Only [facility] [address] [place] [phone] Keshia Beck MD Class 3 severe obesity due to excess calories with serious comorbidity and body mass index (BMI) of 50.0 to 59.9 in adult (Primary Dx) 06/15/2025 Refill [facility] [address] [place] [phone] Keshia Beck MD Class 3 severe obesity due to excess calories with serious comorbidity and body mass index (BMI) of 50.0 to 59.9 in adult 05/19/2025 Refill [facility] [address] [place] [phone] Keshia Beck MD Class 3 severe obesity due to excess calories with serious comorbidity and body mass index (BMI) of 50.0 to 59.9 in adult 05/17/2025 Refill [facility] [address] [place], [place] [phone] Keshia Beck MD Polyarthralgia 05/16/2025 Refill [facility] [address] [place] [address] Keshia Beck MD Newly diagnosed diabetes ([facility]); Polyarthralgia 04/19/2025 Refill [facility] [address] [place] [address] Keshia Beck MD Class 3 severe obesity due to excess calories with serious comorbidity and body mass index (BMI) of 50.0 to 59.9 in adult; Polyarthralgia 04/06/2025 Refill [facility] [address] [place] [address] Keshia Beck MD Newly diagnosed diabetes ([facility]/HCC) from Last 3 Months Immunizations Immunization Administration Dates Next Due Influenza injectable quadriv alent preservative free 09/07/2021,09/20/2020,09/25/2018 Anupama SARS-CoV-2 Vaccination 01/17/2021 Pneumococcal Conjugate PCV 20 03/11/2025 Tdap 04/07/2018 Social History Tobacco Use Types [...] Sign Reading Time Taken Comments Blood Pressure 122/76 03/16/2025 8:47 AM EDT Pulse 87 03/16/2025 8:47 AM EDT Temperature 36.8 C (98.3 F) 03/16/2025 8:47 AM EDT Respiratory Rate 18 03/16/2025 8:47 AM EDT Oxygen Saturation 99% 03/16/2025 8:47 AM EDT Inhaled Oxygen Concentration - - Weight 132 kg (291 lb 6.4 oz) 03/16/2025 8:47 AM EDT Height 165.1 cm (5' 5 ) 03/11/2025 9:41 AM EDT Body Mass Index 48.49 03/11/2025 9:41 AM EDT Plan of Treatment Health Maintenance Due Date Last Done Comments Disability Screening 1985 Diabetes: Foot Exam 1995 Eye Exam 1995 Family Planning (PISQ) 2000 HPV Vaccines (1 - 3-dose series) 2000 Diabetes: Urine Protein Screening 2004 Hepatitis B Vaccines (1 of 3 - 19+ 3-dose series) 2004 COVID-19 Vaccine ( season) 2024 10/12/2021, 01/17/2021 Influenza Vaccine (#1) 2025 , 09/20/2020, 09/25/2018 SDOH Screening 08/27/2025 08/27/2024 Alcohol/Substance Use Screening 09/06/2025 09/06/2024 Lipid Panel 09/06/2025 09/06/2024, 06/1 , 09/29/2020 Diabetes: Hemoglobin A1C 09/11/2025 025, 09/06/2024, 09/03/2023, Additional history exists Depression Screening 10/25/2025 10/25/2024, 10/25/20 24 Pap Smear 02/06/2026 02/06/2023, 07/13/2018 Tobacco Screening 03/16/2026 03/16/2025 Cervical Cancer Screening 02/07/2028 HPV/Cotest 02/07/2028 02/06/2023 DTaP/Tdap/Td Vaccines (2 - Td or Tdap) 04/07/2028 04/07/2018 Zoster Vaccines (1 of 2) 2035 RSV Patients and Patients Aged 60 years or older (1 - 1-dose 75+ series) 2060 HIV Screening Completed 09/06/2024, 04/05/2022 Hepatitis C Screening Completed 09/06/2024, 022 Pneumococcal Vaccine: Pediatrics (0 to 5 Years) and At-Risk Patients (6 to 49) Years Completed 03/11/2025 HIB Vaccines Aged Out No longer eligi ble based on patient's age to complete this topic Hepatitis A Vaccines Aged Out No long er eligible based on patient's age to complete this topic IPV Vaccines Aged Out No longer eligi ble based on patient's age to complete this topic Meningococcal B Vaccine Aged Out No l onger eligible based on patient's age to complete [...] Procedure Name Priority Date/Time Associated Diagnosis Comments BI MAMMOGRAM DIAGNOSTIC TOMOSYNTHESIS BILATERAL Urgent 04/13/2025 8:00 AM EDT Breast pain, right BI US BREAST LIMITED RIGHT Urgent 04/13/2025 7:43 AM EDT Breast pain, right POCT GLYCATED HEMOGLOBIN, TOTAL Routine 03/11/2025 9:50 AM EDT Type 2 diabetes mellitus without complication, without long-term current use of insulin (CMS/HCC) HEPATITIS C AB W/REFL TO HCV RNA, QN, PCR Routine 09/06/2024 10:00 AM EST Newly diagnosed diabetes (CMS/HCC) HIV 1/2 ANTIGEN/ANTIBODY, FOURTH GENERATION W/RFL Routine 09/06/2024 10:00 AM EST Newly diagnosed diabetes (CMS/HCC) LIPID PANEL, STANDARD Routine 09/06/2024 10:00 AM EST Newly diagnosed diabetes (CMS/HCC) HPV MRNA E6/E7 REFLEX TO HPV 16, 18/45 Routine 02/06/2023 10:12 AM EDT Mastodynia of left breast PAP SMEAR Routine 02/06/2023 10:12 AM EDT Mastodynia of left breast from Last 3 Months or Most Recently Relevant to Health Maintenance Results * BI Mammogram Diagnostic Tomosynthesis Bilateral (04/13/2025 8:00 AM EDT) Anatomical Region Laterality Modality Breast Bilateral Mammography 04/13/2025 8:00 AM EDT Narrative 04/13/2025 8:55 AM EDT [facility] [address] [place] [address] Mammography Report Signed Patient: Marina Pena MR #: [id number] : 1985 Acct:[id number] Age/Sex: 39 / F ADM Date: 04/13/25 Loc: HO.MAMMO Attending Dr: Nicholas Lugo MD Ordering Physician: NICHOLAS LUGO MD Results: 2Benign Findings Date of Service: 04/13/25 Follow Up: 1 Year From [facility] Mammogram Procedure(s): MM tomosynthesis diagnostic BI Accession Number(s): [id number] cc: NICHOLAS LUGO MD; Keshia Beck MD EXAMINATION: MM DIAGNOSTIC DIGITAL BREAST TOMOSYNTHESIS, BILATERAL Right limited ultrasound. CLINICAL INFORMATION: Several day history of right breast pain at 10:00 near the right axilla previously, patient does not have pain today. COMPARISON: Mammography: Comparison is made with relevant prior exams. TECHNIQUE: Digital breast mammography with tomosynthesis is performed in both the craniocaudal and mediolateral oblique views along with computer-aided detection (CAD). FINDINGS: There are scattered areas of fibroglandular density (ACR BI-RADS breast composition Category b). There are no significant masses, abnormal calcifications, or other abnormalities. Targeted color Doppler ultrasound scanning in the area of the patient's previously felt right axilla and breast pain from 7-11 o'clock demonstrates normal fibroglandular breast tissue and a few normal appearing intramammary low axillary lymph nodes. Results are provided to the patient at time of visit by the technologist. MM/MM tomosynthesis diagnostic BI IMPRESSION: No mammographic or sonographic abnormal findings to account for the patient's previously felt right breast pain and right axillary pain. Recommend clinical evaluation and follow-up. Normal intramammary and low axillary lymph nodes. Benign. ASSESSMENT: BI-RADS BI-RADS 2 - Benign Findings RECOMMENDATION: 1 year F/U This patient's information was entered into a reminder system with a target due date for their next mammogram. Electronically signed by: Deloris Berman DO 04/13/2025 08:52 AM EDT Dictated By: Deloris Berman DO Signed By: <Electronically signed by Deloris Berman DO in OV> 04/13/25 0852 DD/ 08 TD/TT: 04/13/25 0835 Post Hole Digger: Procedure Note Donotuseinterpreter, Image - 04/13/2025 [facility] [address] [place] [address] Mammography Report Signed Patient: Gwen Pena #: [id number] : 1985Acct:[id number] Age/Sex: 39 / FADM Date: 04/13/25 Loc: HO.MAMMO Attending Dr: Nicholas Lugo MD Ordering Physician: NICHOLAS LUGO MDResults: 2Benign Findings Date of Service: 04/13/25Follow Up: 1 Year From [facility] Mammogram Procedure(s): MM tomosynthesis diagnostic BI Accession Number(s): [id number] cc: NICHOLAS LUGO MD; Keshia Beck MD EXAMINATION: MM DIAGNOSTIC DIGITAL BREAST TOMOSYNTHESIS, BILATERAL Right limited ultrasound. CLINICAL INFORMATION: Several day history of right breast pain at 10:00 near the right axilla previously, patient does not have pain today. COMPARISON: Mammography: Comparison is made with relevant prior exams. TECHNIQUE: Digital breast mammography with tomosynthesis is performed in both the craniocaudal and mediolateral oblique views along with computer-aided detection (CAD). FINDINGS: There are scattered areas of fibroglandular density (ACR BI-RADS breast composition Category b). There are no significant masses, abnormal calcifications, or other abnormalities. Targeted color Doppler ultrasound scanning in the area of the patient's previously felt right axilla and breast pain from 7-11 o'clock demonstrates normal fibroglandular breast tissue and a few normal appearing intramammary low axillary lymph nodes. Results are provided to the patient at time of visit by the technologist. MM/MM tomosynthesis diagnostic BI IMPRESSION: No mammographic or sonographic abnormal findings to account for the patient's previously felt right breast pain and right axillary pain. Recommend clinical evaluation and follow-up. Normal intramammary and low axillary lymph nodes. Benign. ASSESSMENT: BI-RADS BI-RADS 2 - Benign Findings RECOMMENDATION: 1 year F/U This patient's information was entered into a reminder system with a target due date for their next mammogram. Electronically signed by: Deloris Berman DO 04/13/2025 08:52 AM EDT Workstation: [employer] Dictated By: Deloris Berman DO Signed By: <Electronically signed by Deloris Berman DO in OV> 04/13/25 0852 DD/ 0800 TD/TT: 04/13/25 0835 Post Hole Digger: Nicholas Lugo MD IMG BI PROCEDURES Edited Result - Final * BI US Breast Limited Right (04/13/2025 7:43 AM EDT) Anatomical Region Laterality Modality Breast Right Ultrasound 04/13/2025 7:43 AM EDT Narrative 04/13/2025 8:55 AM EDT [facility] [address] [place] [address] Ultrasound Report Signed Patient: Marina Pena MR #: [id number] : 1985 Acct:[id number] Age/Sex: 39 / F ADM Date: 04/13/25 Loc: HO.MAMMO Attending Dr: Nicholas Lugo MD Ordering Physician: NICHOLAS LUGO MD Date of Service: 04/13/25 Procedure(s): US breast RT limited Accession Number(s): [id number] cc: NICHOLAS LUGO MD; Keshia Beck MD EXAMINATION: MM DIAGNOSTIC DIGITAL BREAST TOMOSYNTHESIS, BILATERAL Right limited ultrasound. CLINICAL INFORMATION: Several day history of right breast pain at 10:00 near the right axilla previously, patient does not have pain today. COMPARISON: Mammography: Comparison is made with relevant prior exams. TECHNIQUE: Digital breast mammography with tomosynthesis is performed in both the craniocaudal and mediolateral oblique views along with computer-aided detection (CAD). FINDINGS: There are scattered areas of fibroglandular density (ACR BI-RADS breast composition Category b). There are no significant masses, abnormal calcifications, or other abnormalities. Targeted color Doppler ultrasound scanning in the area of the patient's previously felt right axilla and breast pain from 7-11 o'clock demonstrates normal fibroglandular breast tissue and a few normal appearing intramammary low axillary lymph nodes. Results are provided to the patient at time of visit by the technologist. US/US breast RT limited IMPRESSION: No mammographic or sonographic abnormal findings to account for the patient's previously felt right breast pain and right axillary pain. Recommend clinical evaluation and follow-up. Normal intramammary and low axillary lymph nodes. Benign. ASSESSMENT: BI-RADS BI-RADS 2 - Benign Findings RECOMMENDATION: 1 year F/U This patient's information was entered into a reminder system with a target due date for their next mammogram. Electronically signed by: Deloris Berman DO 04/13/2025 08:52 AM EDT Dictated By: Deloris Berman DO Signed By: <Electronically signed by Deloris Berman DO in OV> 04/13/25 0852 DD/ 0743 TD/TT: 04/13/25 0840 Post Hole Digger: Procedure Note Donotuseinterpreter, Image - 04/13/2025 [facility] [address] [place] [address] Ultrasound Report Signed Patient: Marina PenaMR #: [id number] : 1985Acct:[id number] Age/Sex: 39 / FADM Date: 04/13/25 Loc: HO.MAMMO Attending Dr: Nicholas Lugo MD Ordering Physician: NICHOLAS LUGO MD Date of Service: 04/13/25 Procedure(s): US breast RT limited Accession Number(s): [id number] cc: NICHOLAS LUGO MD; Keshia Beck MD EXAMINATION: MM DIAGNOSTIC DIGITAL BREAST TOMOSYNTHESIS, BILATERAL Right limited ultrasound. CLINICAL INFORMATION: Several day history of right breast pain at 10:00 near the right axilla previously, patient does not have pain today. COMPARISON: Mammography: Comparison is made with relevant prior exams. TECHNIQUE: Digital breast mammography with tomosynthesis is performed in both the craniocaudal and mediolateral oblique views along with computer-aided detection (CAD). FINDINGS: There are scattered areas of fibroglandular density (ACR BI-RADS breast composition Category b). There are no significant masses, abnormal calcifications, or other abnormalities. Targeted color Doppler ultrasound scanning in the area of the patient's previously felt right axilla and breast pain from 7-11 o'clock demonstrates normal fibroglandular breast tissue and a few normal appearing intramammary low axillary lymph nodes. Results are provided to the patient at time of visit by the technologist. US/US breast RT limited IMPRESSION: No mammographic or sonographic abnormal findings to account for the patient's previously felt right breast pain and right axillary pain. Recommend clinical evaluation and follow-up. Normal intramammary and low axillary lymph nodes. Benign. ASSESSMENT: BI-RADS BI-RADS 2 - Benign Findings RECOMMENDATION: 1 year F/U This patient's information was entered into a reminder system with a target due date for their next mammogram. Electronically signed by: Deloris Berman DO 04/13/2025 08:52 AM EDT Dictated By: Deloris Berman DO Signed By: <Electronically signed by Deloris Berman DO in OV> 04/13/25 0852 DD/ 0743 TD/TT: 04/13/25 0840 Post Hole Digger: Nicholas Lguo MD IMG US PROCEDURES Edited Result - Final * POCT HGB A1C (03/11/2025 9:50 AM EDT) Hemoglobin A1C 5.8 4.0 - 6.0 % QC Media Lot # [id number] Lot# Expiration Date 726 Blood 03/11/2025 9:50 AM EDT us Keshia Mota MD POINT OF CARE TEST EN TER/EDIT ORDERABLES Final Result * Hepatitis C Antibody with Reflex to HCV, RNA, Quantitative, Real-Time PCR (09/06/2024 10:00 AM EST) Hepatitis C Antibody Nonreactive Nonreactive [facility] Comment:Antibodies to HCV no t detected; does not exclude early acuteHCV infection. Blood Venous blood specimen / Unknown 09/06/2024 10:00 AM EST 09/06/2024 11:06 AM EST Keshia Mota MD LAB BLOOD ORDERABLES Final Result [facility] [address] [place] [phone] * HIV-1/2 Antigen and Antibodies, Fourth Generation, with Reflexes (09/06/2024 10:00 AM EST) HIV AB/AG Nonreactive Nonreactive [facility] Comment:HIV-1 p24 Ag and/or HIV-1/HIV-2 Ab not detected.A test result that is nonreactive does not exclude thepossibility of exposure to or infection with HIV-1 and/orHIV-2. Nonreactive results in this assay for individualswith prior exposure to HIV-1 and/or HIV-2 may be due toantigen and antibody levels that are below the limit ofdetection of this assay.The [employer] HIV Ag/Ab Combo assay result andsupplemental assay results should be interpreted inconjunction with the patient's clinical presentation,history and other laboratory results. If the results areinconsistent with clinical evidence, additional testing issuggested to confirm the result. Blood Venous blood specimen / Unknown 09/06/2024 10:00 AM EST 09/06/2024 11:06 AM EST us Keshia Mota MD LAB BLOOD ORDERABLES Final Result Performing Organization Address [facility]/ZIP Co de Phone Number [facility] [address] [place] [address] [phone] * (ABNORMAL) Lipid Panel, Standard (09/06/2024 10:00 AM EST) Triglycerides 250(H) <150 mg/dL [facility] Comment:Desirable Triglyceri de: less than 150 mg/dLBorderline High Triglyceride 150-199 mg/dLHigh Triglyceride: 200-499 mg/dLVery High Triglyceride: greater than or equal to 5OO mg/dL Cholesterol 140 <200 mg/dL [facility] Comment:Desirable Cholestero l: less than 200 mg/dLBorderline High Cholesterol: 200-239 mg/dLHigh Cholesterol: greater than 239 mg/dL LDL Cholesterol Calculated 44 <100 mg/dL [facility] Comment:Desirable LDL: less than 100 mg/dLNear Optimal/Above Optimal LDL: 110- 129 mg/dLBorderline High LDL: 130-159 mg/dLHigh LDL: 160-189 mg/dLVery High LDL: greater than or equal to 190 mg/dL HDL Cholesterol 46 >40 mg/dL [facility] Comment:Desirable HDL: great er than 40 mg/dL Note: This HDL assay may give artificially low results in patients with liver disease. Blood Venous blood specimen / Unknown 09/06/2024 10:00 AM EST 09/06/2024 11:06 AM EST us Keshia Mota MD LAB BLOOD ORDERABLES Final Result Performing Organization Address City/[facility]/ZIP Co de Phone Number [facility] [address] [place] [address] [phone] * HPV mRNA E6/E7 w/Reflex to HPV Genotypes 16, 18/45 (02/06/2023 10:12 AM EDT) HPV nRNA E6/E7 Not Detected Not Detected [facility] Comment:Methodology: Transcr iption-Mediated AmplificationThis assay detects E6/E7 viral messenger RNA (mRNA) from 14high-risk HPV types (16,18,31,33,35,39,45,51,52,56,58,59,66,68).Cervical sources are required for HPV testing.If a vaginal source from a patient who has had atotal hysterectomy with removal of cervix wassubmitted, please contact the testing laboratoryfor alternative testing options.For additional information, please refer [email or web address](This link if provided for information/educational purposes only.)THIS TEST WAS PERFORMED AT:[employer] [place] [phone] BOB MD HPV mRNA E6/E7 TNP [facility] HPV 16 RNA TNP [facility] HPV 18/45 RNA [facility] 02/06/2023 10:1 2 AM EDT 02/07/2023 11:00 AM EDT [facility] External Provider LAB CYT OLOGY ORDERABLES Final Result [facility] [address] [place] [address] [phone] * Pap Smear (02/06/2023 10:12 AM EDT) 02/06/2023 10:1 2 AM EDT 02/07/2023 11:00 AM EDT Narrative [facility] - 02/27/2023 7:33 PM EDT ----- ------- Name: Marina Pena Age/Sex: 37/F : 1985 Unit#: [id number] Attend Dr: MireilleLi [facility] Re02/06/23 Status: DEP REF Location: [facility] Disch: ----- ------- SPEC : [id number] RECD: 02/07/23-1099 STATUS: NOAM APPLE NUM: [id number] LYNDON: 02/06/23-[address] [facility] [address]: MireilleLi [facility] ENTERED: 02/07/23-1128 SP TYPE: Pap Smr OT DR: Keshia Beck MD ORDERED: Pap Smear Addendum Addendum 1 Entered: 02/24/23-813 HPV mRNA E6/E7: NOT DETECTED This assay detects E6/E7 viral messenger RNA (mRNA) from 14 high-risk HPV types (16, 18, 31, 33, 35, 39, 45, 51, 52, 56, 58, 59, 66, 68) HPV testing performed by [facility], [place], [place]. See reference laboratory portion of the EMR for entire report. Addendum Signed (signature on file) Maribell Veliz 02/27/23 1933 ----- ------- Interpretation Satisfactory for evaluation. No endocervical cells seen. Negative for intraepithelial lesion or malignancy. Clinical Information LMP: 01/30/23 Previous PAP test: 07/13/18, WNL Material Received ThinPrep-Cervical Copies To: Keshia Beck MD [address] [place], [place] [id number] Li [address] Che [facility] [place] [id number] CONTINUED ON NEXT PAGE ----- ------- Name: Marina Pena Age/Sex: 37/F : 1985 Unit#: [id number] [facility] Status: DEP REF Location: HO.LNP Disch: ----- ------- SPEC : [id number] RECD: 02/07/23-1099 STATUS: NOAM APPLE NUM: [id number] LYNDON: 02/06/23-[address] [facility] [address] ENTERED: 02/07/23-1128 SP TYPE: Pap Smr OTHR DR: Keshia Beck MD ORDERED: Pap Smear ----- ------- Signed (signature on file) Marilee Arthur 02/10/23 1211 (signature on file) Maribell Veliz 02/27/23 1933 ----- ------- END OF REPORT [facility] External Provider LAB CYT [facility] ORDERABLES Final Result [facility] [address] [place] [address] [phone] from Last 3 Months or Most Recently Relevant to Health Maintenance Insurance [facility] C3 BARRY Franks [id number] Care Teams Fire Prevention Specialist Relationship Specialty Start Date End Date Keshia Beck MD [address] [place] [address] [place] [id number] PCP - General Family Medicine 07/08/18
--- OUTSIDE RECORDS SUMMARY | 2025-06-21 15:55 | XMS_ITS | Encounter Summary ---
Author Organization [employer] Address [address] [facility] 7t [place] [address] Care Team Providers Care Cold Water Machine Operator Name Role Phone Keshia Beck MD Primary Care Provide r Encounter Details Date Type Department Care Team (Late st Contact Info) Description 02/17/2023 Orders Only [facility] MED [facility] P[facility]S [address] [place], [place] [phone] Marina Fair LPN Social History Tobacco Use [...] on filedocumented in this encounter Care Teams Cold Water Machine Operator Relationship Specialty Start Date End Date Keshia Beck MD [address] [place] [phone] PCP - General Family Medicine 07/08/18 documented as of this encounter
== END 2025-06-21 16:00 | disposition home or self-care (01) ==
LOC: HO.HWS 15:01
PROVIDERS: PCP Internal Medicine; Visit Provider Obstetrics & Gynecology
DX: Z30.09 Encounter for other general counseling and advice on contraception (principal); Z30.430 Encounter for insertion of intrauterine contraceptive device; Z32.02 Encounter for pregnancy test, result negative
CPT/HCPCS: 58300; 99213

== ENCOUNTER 2025-06-23 09:04 | Outpatient (AMB) | payer MEDICAID, SELFPAY ==
--- NOTE | 2025-06-23 09:05 | A.OFFVIS_ITS ---
Intake Visit Reasons: IUD issues Allergies penicillin V Allergy (Unknown, Verified 06/21/25 15:04) rash Penicillins (PENICILLINS) Allergy (Unknown, Verified 06/21/25 15:04) RASH HPI Comments Details: Presenting complaining of poking the vaginal area 2 days after IUD insertion [facility] Medical History Morbid obesity with BMI of 50.0-59.9, adult History of menorrhagia Glaucoma Sleep apnea Surgical History History of hysteroscopy S/P Family History Father Diabetes Hypertension Mother Hypertension Social History Household Members: Children Housing: Apartment Alcohol intake: former Patient Tobacco Use Status: Never used Tobacco service: No Current occupational status: employed Current occupation: [employer] Sexual orientation: Straight/Heterosexual Gender identity: Female Female Reproductive History Menstrual Age of Menarche: 11 Review of Systems Const All systems reviewed & are unremarkable except as noted in HPI and below Physical Exam General: Yes no CVA tenderness External Female Exam: normal external appearance and normal appearance of the urethra Speculum Exam - Vagina: normal appearance of the vagina, normal palpation, no lesions and no masses Speculum Exam - Cervix: normal appearance of the cervix, normal palpation, no lesions, no masses, nontender and Other cervical findings present (Long IUD string, trimmed) Bimanual exam- vagina & uterus: normal bimanual exam, normal palpation, uterine size normal, normal palpation, uterine shape normal, No Cervical tenderness present and non-tender Bimanual Exam- Adnexa, other: normal adnexae Back/Spine/Pelvis Back: no CVA tenderness Assessment & Plan Assessment & Plan (1) IUD check up: Code(s): Z30.431 - Encounter for routine checking of intrauterine contraceptive device Category: Medical Plan: UPT done in the office was negative, IUD string was trimmed, the patient feels better. Instructions given the patient to call in case of pelvic pain, fever or any other concerns and to schedule a follow-up appointment in 3 days. All questions answered, the patient verbalized understanding Coding Level of Care Code Est Pt Level 3 (79328) Diagnoses IUD check up Z30.431
== END 2025-06-23 09:46 | disposition home or self-care (01) ==
LOC: HO.HWS 09:04
PROVIDERS: PCP Internal Medicine; Visit Provider Obstetrics & Gynecology
DX: Z30.431 Encounter for routine checking of intrauterine contraceptive device (principal)
CPT/HCPCS: 99213

== ENCOUNTER → 2025-06-23 09:04 | Outpatient (BNVA) | payer MEDICAID, SELFPAY | PROVIDERS: PCP Internal Medicine; Visit Provider Obstetrics & Gynecology | DX: Z30.431 Encounter for routine checking of intrauterine contraceptive device (principal) | CPT/HCPCS: 99212 ==

== ENCOUNTER 2025-06-28 11:00 | Outpatient (REF) | payer MEDICAID, SELFPAY | END 2025-06-28 11:01 | disposition home or self-care (01) | LOC: HO.LAB 11:00 | PROVIDERS: PCP Internal Medicine; Visit Provider Obstetrics & Gynecology | DX: Z30.432 Encounter for removal of intrauterine contraceptive device (principal); Z32.02 Encounter for pregnancy test, result negative; Z30.09 Encounter for other general counseling and advice on contraception; N39.0 Urinary tract infection, site not specified; R31.29 Other microscopic hematuria | CPT/HCPCS: 58301; 81003; 81025; 87086; 99212 ==

== ENCOUNTER 2025-06-28 11:00 | Outpatient (AMB) | payer MEDICAID, SELFPAY ==
--- NOTE | 2025-06-28 11:05 | A.OFFVIS_ITS ---
Intake Visit Reasons: IUD check f/u Internal Revenue Service Agent Required: Yes Internal Revenue Service Agent Language: Die Attaching Machine Tender Services: Internal Revenue Service Agent Present ([email or web address]) Internal Revenue Service Agent Name: Gerry [id number] Information Interpreted: non-clinical & clinical Mcat Instructor: Mcat Instructor Present (marcus) Allergies penicillin V Allergy (Unknown, Verified 06/28/25 11:12) rash Penicillins (PENICILLINS) Allergy (Unknown, Verified 06/28/25 11:12) RASH HPI Comments Details: Presenting requesting Mirena IUD removal complaining of pelvic cramping and spotting in addition to burning on urination and urinary frequency PFSH Medical History Morbid obesity with BMI of 50.0-59.9, adult History of menorrhagia Glaucoma Sleep apnea Surgical History History of hysteroscopy S/P Family History Father Diabetes Hypertension Mother Hypertension Social History Household Members: Children Housing: Apartment Alcohol intake: former Patient Tobacco Use Status: Never used Tobacco service: No Current occupational status: employed Current occupation: [employer] Sexual orientation: Straight/Heterosexual Gender identity: Female Female Reproductive History Menstrual Age of Menarche: 11 control method: progestin IUCD (Mirena 06/21/25) Review of Systems Const All systems reviewed & are unremarkable except as noted in HPI and below Physical Exam General: Yes no CVA tenderness External Female Exam: normal external appearance and normal appearance of the urethra Speculum Exam - Vagina: normal appearance of the vagina, normal palpation, no lesions and no masses Speculum Exam - Cervix: normal appearance of the cervix, normal palpation, no lesions, no masses, nontender and Other cervical findings present (IUD string in place) Bimanual exam- vagina & uterus: normal bimanual exam, normal palpation, uterine size normal, normal palpation, uterine shape normal, No Cervical tenderness present and non-tender Bimanual Exam- Adnexa, other: normal adnexae Back/Spine/Pelvis Back: no CVA tenderness Office Procedures IUD Insert/Removal Details Details: Counseling/Consent: After discussing with the patient the risks of the procedure including bleeding, infection, scar tissue formation, , possible injury to blood vessels or nerves, chronic arm pain, blood transfusion, and irregular unpredictable bleeding Alternative options were discussed with the patient including but not limited: Do nothing. The patient signed the consent and agreed with the plan; all questions answered. Urine test was done in the office and was negative Preop dx: Requesting IUD removal Op: IUD removal Post op dx: same EBL= 10 cc Procedure: The patient was put in the dorsal lithotomy position a speculum was inserted in the vagina the IUD thread identified. Using a Araseli clamp the thread was grasped and the IUD pulled out with no complications. The patient tolerated the procedure well and was advised to use a different method for contraception. Discharge instructions: Instructions were given to the pt to call if temp>100.4, abdominal pain heavy vaginal bleeding, n/v occur. The patient verbalized understanding and all questions answered. This note was generated with a voice recognition program. Some errors may have been overlooked during the review of this note. Sometimes these errors may affect the content or meaning of a given sentence. 04894-[id number] Removal Procedure code (CPT) selection complete Results AMB Test Urine AMB Test Urine Negative Last Edit by CINDY Castillo on 06/28/25 11:14 AMB Urinalysis, Automated UA Leukoctes 0.5 Angela/uL Last Edit by Jyotsna Spears [facility] on 06/28/25 11:3 6 UA Nitrite Negative Last Edit by Jyotsna Spears [facility] on 06/28/25 11:36 UA Urobilinogen 0 mg/dL Last Edit by Jyotsna Spears [facility] on 06/28/25 11:3 6 UA Protein 0.5 mg/dL Last Edit by Jyotsna Spears [facility] on 06/28/25 11:36 UA pH 6.5 Last Edit by Jyotsna Spears [facility] on 06/28/25 11:36 UA Blood 3 Da/uL Last Edit by Joytsna Spears [facility] on 06/28/25 11:36 UA Specific [place] 1.015 Last Edit by Jyotsna Spears [facility] on 06/28/25 11:36 UA Ketone Negative Last Edit by CINDY Castillo on 06/28/25 11:36 UA Bilirubin 0 mg/dL Last Edit by CINDY Castillo on 06/28/25 11:36 UA Glucose mg/dL Last Edit by CINDY Castillo on 06/28/25 11:36 Results Reviewed Results Reviewed: Laboratory Last Values [facility]st Clinic Negative 06/28/25 11:13 Assessment & Plan Assessment & Plan (1) Encounter for IUD removal: Code(s): Z30.432 - Encounter for removal of intrauterine contraceptive device Category: Medical Plan: UPT done negative. Mirena IUD removed, see procedure note (2) Family planning: Code(s): Z30.09 - Encounter for other general counseling and advice on contraception Category: Social Hx Plan: Discussed with the patient the different options of control including control pills/Nuvaring, Depo Medroxy Progesterone Acetate, IUD ( levonorgestrel, Copper), sterilization. All the pros, cons, risks and benefits of each were discussed with the patient. The patient decided to think about it and get back to us. Instructions given the patient to use a backup method for control to prevent . All questions answered, the patient verbalized understanding (3) UTI (urinary tract infection): Code(s): N39.0 - Urinary tract infection, site not specified Category: Medical Plan: Urine dip showed microscopic hematuria, urine culture sent . Macrobid 100 mg p.o. b.i.d. send the patient's pharmacy for 5 days. Instructions given the patient to call in case symptoms not improve, fever above 100.4 or flank pain. Will repeat urine dip in 2 weeks to make sure microscopic hematuria resolves. Orders: Orders AMB HCG Urine Test Today Z32.02 - Encounter for test, result negative AMB Urinalysis Automated Today N39.0 - Urinary tract infection, site not specified Medications: New nitrofurantoin monohyd/m-cryst 100 mg (Macrobid) 100 mg PO BID 10 caps 0RF 5 days Coding Level of Care Code Est Pt Level 3 (11190) Procedure Only Diagnoses Encounter for IUD removal Z30.432 Family planning Z30.09 UTI (urinary tract infection) N39.0 CPT Codes Details - CPT: 70848-XZJ Removal ([id number])
--- OUTSIDE RECORDS SUMMARY | 2025-06-28 12:39 | XMS_ITS | Encounter Summary ---
Author Organization [employer] Address [address] [facility] 7t [place] [address] Care Team Providers Care Client Care Specialist Name Role Phone Keshia Beck MD Primary Care Provide r Encounter Details Date Type Department Care Team (Late st Contact Info) Description 02/17/2023 Orders Only [facility] MED & PEDS [address] [place], [place] [phone] Marina Fair LPN Social History Tobacco Use [...] on filedocumented in this encounter Care Teams Client Care Specialist Relationship Specialty Start Date End Date Keshia Beck MD [address] [place] [phone] PCP - General Family Medicine 07/08/18 documented as of this encounter
--- OUTSIDE RECORDS SUMMARY | 2025-06-28 12:39 | XMS_ITS | Encounter Summary ---
Author Organization [employer] Address [address] [facility] 7t [place] [address] Care Team Providers Care Living Manager Name Role Phone Keshia Beck MD Primary Care Provide r Reason for Visit * Reason Comments Med Refill Encounter Details Date Type Department Care Team ([facility] Contact Info) Description 11/24/2024 Refill [facility] [address] [place] [address] Keshia Beck MD [address] [place], [place] [phone] Polyarthralgia Social History Tobacco Use Types Packs/Day [...] documented as of this encounter Care Teams Living Manager Relationship Specialty Start Date End Date Keshia Beck MD [address] [place] [phone] PCP - General Family Medicine 07/08/18 documented as of this encounter
--- OUTSIDE RECORDS SUMMARY | 2025-06-28 12:39 | XMS_ITS | Encounter Summary ---
Author Organization [employer] Address [address] [facility] 7t [place] [address] Care Team Providers Care Crematory Operator Name Role Phone Keshia Beck MD Primary Care Provide r Reason for Visit * Reason Onset Date Comments Prior Authorization 11/10/2024 Encounter Details Date Type Department Care Team ([facility] st Contact Info) Description 11/10/2024 Telephone [facility] [address] [place] [address] Keshia Beck MD [address] [place] [address] Prior Authorization Social History Tobacco Use Types [...] regarding RX Zepbound PA was denied. Per [facility] patients need to trial oral medications such [...] documented as of this encounter Care Teams Crematory Operator Relationship Specialty Start Date End Date Keshia Beck MD [address] [place] [address] PCP - General Family Medicine 07/08/18 documented as of this encounter
--- OUTSIDE RECORDS SUMMARY | 2025-06-28 12:39 | XMS_ITS | Encounter Summary ---
Author Organization [employer] Address [address] [facility] 7t [place] [address] Care Team Providers Care Paper Folder Name Role Phone Keshia Beck MD Primary Care Provide r Reason for Visit * Reason Comments Med Refill Encounter Details Date Type Department Care Team ([facility] st Contact Info) Description 06/15/2025 Refill [facility] [address] [place] [address] Keshia Beck MD [address] [place] [address] Class 3 severe obesity due to excess [...] documented as of this encounter Care Teams Paper Folder Relationship Specialty Start Date End Date Keshia Beck MD [address] [place] [address] PCP - General Family Medicine 07/08/18 documented as of this encounter
--- OUTSIDE RECORDS SUMMARY | 2025-06-28 12:39 | XMS_ITS | Clinical Summary ---
Author Organization [employer] Address [address] [facility] 7t [place] [address] Care Team Providers Care Supervisor Stitching Department Name Role Phone Keshia Beck MD Primary [...] 08/25/20 24 025 Active Spacer/Aero-Hol ding Chambers ([facility]) miscIndications :Influenza-like symptoms 1 each every 4 (four) hours if needed (asthma). 1 each 09/03/20 24 Active FREESTYLE LITE test stripIndication s:Newly diagnosed diabetes ([facility]) Use to test blood sugar 2 times daily 100 each 12 09/06/20 24 025 Active Blood Glucose Monitoring Suppl (FreeStyle [place] Lite) w/Device kitIndications: Newly diagnosed diabetes ([facility]) Use to test blood sugar 2 times [...] TRUEplus Lancets 33G miscIndications :Newly diagnosed diabetes ([facility]) USE DIRECTED TO TEST BLOOD SUGAR TWICE DAILY 100 each 2 04/06/20 25 Active metFORMIN (Glucophage) 500 MG tabletIndicatio ns:Newly diagnosed diabetes ([facility]/HCC) TAKE 1 TABLET BY MOUTH TWICE DAILY [...] to high blood pressure readings RT 6 [facility] Assessment & Plan (09/06/2024 10:15 AM [...] Encounters Date Type Department Care Team Description 06/21/2025 Orders Only GENERIC EXTERNAL DATA DEPARTMENT Provider, Generic External Data 06/16/2025 Orders Only [facility] MEDICINE [address] [place] [address] Keshia Beck MD Class 3 severe obesity due to excess calories with serious comorbidity and body mass index (BMI) of 50.0 to 59.9 in adult (Primary Dx) 06/15/2025 Refill [facility] [address] [place] [address] Keshia Beck MD Class 3 severe obesity due to excess calories with serious comorbidity and body mass index (BMI) of 50.0 to 59.9 in adult 05/19/2025 Refill [facility] [address] [place] [address] Keshia Beck MD Class 3 severe obesity due to excess calories with serious comorbidity and body mass index (BMI) of 50.0 to 59.9 in adult 05/17/2025 Refill [facility] MED & PEDS [address] [place] [address] Keshia Beck MD Polyarthralgia 05/16/2025 Refill [facility] [address] [place] [address] Keshia Beck MD Newly diagnosed diabetes ([facility]); Polyarthralgia 04/19/2025 Refill [facility] MED & PEDS [address] [place] [address] Keshia Beck MD Class 3 severe obesity due to excess calories with serious comorbidity and body mass index (BMI) of 50.0 to 59.9 in adult; Polyarthralgia 04/06/2025 Refill [facility] [address] [place] [address] Keshia Beck MD Newly diagnosed diabetes ([facility]/HCC) from Last 3 Months Immunizations Immunization Administration [...] your housing situation today? I have irena rmaires 09/03/[address] you li [...] 3-dose series) 2004 COVID-19 Vaccine ( - 2023- season) 2024 10/12/2021, 01/17/2021 Influenza Vaccine (#1) 2025 , 09/20/2020, 09/25/2018 SDOH Screening 08/27/2025 08/27/2024 Alcohol/Substance Use Screening 09/06/2025 09/06/2024 Lipid Panel 09/06/2025 09/06/2024, 06, 09/29/2020 Diabetes: Hemoglobin A1C 09/11/2025 025, 09/06/2024, [...] topic Meningococcal Vaccine Aged Out No jonathon sajnay eligible based on patient's age to complete this topic RSV under 20 months Aged Out No longe r eligible based on patient's age to complete this topic Rotavirus Vaccines Aged Out No longer eligible based on patient's age to complete this topic Procedures Procedure Name Priority Date/Time Associated Diagnosis Comments CHLAMYDIA/N. GONORRHOEAE RNA, TMA, UROGENITAL Routine 06/21/2025 3:00 PM EDT BI MAMMOGRAM DIAGNOSTIC TOMOSYNTHESIS BILATERAL Urgent 04/13/2025 [...] 09/06/2024 10:00 AM EST Newly diagnosed diabetes ([facility]) HPV MRNA E6/E7 REFLEX TO HPV 16, 18/45 Routine 02/06/2023 10:12 AM EDT Mastodynia of left breast PAP SMEAR Routine 02/06/2023 10:12 AM EDT Mastodynia of left breast from Last 3 Months or Most Recently Relevant to Health Maintenance Results * Chlamydia/N. Gonorrhoeae RNA, TMA, Urogenitial (06/21/2025 3:00 PM EDT) CT PCR NOT DETECTED Not Detect. [facility] Comment:A not detected test result does not exclude the possibilityof infection because test results can be affected byimproper specimen collection, concurrent antibiotic therapy,or the number of organisms in the specimen which may bebelow the sensitivity of the test. As with many diagnostictests, results from the Xpert CT/NG assay should beinterpreted in conjunction with other laboratory andclinical data available to the clinician.Xpert CT/NG performance has not been evaluated in patientsless than 14 years of age. The assay should not be used forthe evaluationof suspected sexual abuse or for other medico-legalindications. Additional testing is recommended in anycircumstance when false positive or false negative resultscould lead to adverse medical, social or psychologicalconsequences. NG PCR NOT DETECTED Not Detect. [facility] Comment:A not detected test result does not exclude the possibilityof infection because test results can be affected byimproper specimen collection, concurrent antibiotic therapy,or the number of organisms in the specimen which may bebelow the sensitivity of the test. As with many diagnostictests, results from the Xpert CT/NG assay should beinterpreted in conjunction with other laboratory andclinical data available to the clinician.Xpert CT/NG performance has not been evaluated in patientsless than 14 years of age. The assay should not be used forthe evaluationof suspected sexual abuse or for other medico-legalindications. Additional testing is recommended in anycircumstance when false positive or false negative resultscould lead to adverse medical, social or psychologicalconsequences. 06/21/2025 3:00 PM EDT 06/21/2025 6:46 PM EDT us Generic External Data Provider LAB MICROBIOLOGY - GENERAL ORDERABLES Final Result [facility] [address] [place] [address] [phone] * BI Mammogram Diagnostic Tomosynthesis Bilateral (04/13/2025 8:00 AM EDT) Anatomical Region Laterality Modality Breast Bilateral Mammography 04/13/2025 8:00 AM EDT Narrative 04/13/2025 8:55 AM EDT [address] [place] [address] Mammography Report Signed Patient: Marina Pena MR #: [id number] : 1985 Acct:[id number] Age/Sex: 39 / F ADM Date: 04/13/25 Loc: HO.MAMMO Attending Dr: Nicholas Lugo MD Ordering Physician: NICHOLAS LUGO MD Results: 2Benign Findings Date of Service: 04/13/25 Follow Up: 1 Year From [facility] Mammogram Procedure(s): MM tomosynthesis diagnostic BI Accession Number(s): [id number] cc: NICHOLAS LUGO MD; Keshia Beck MD [...] 04/13/25 0852 DD/ 0800 TD/TT: 04/13/25 0835 Net Developer With Wcf: Procedure Note Donotuseinterpreter, Image - 04/13/2025 [facility]'s [address] [place] [address] Mammography Report Signed Patient: Marina PenaMR #: [id number] : 1985Acct:[id number] Age/Sex: 39 / FADM Date: 04/13/25 Loc: .MAMMO Attending Dr: Nicholas Lugo MD Ordering Physician: NICHOLAS LUGO MDResults: 2Benign Findings Date of Service: 04/13/25Follow Up: 1 Year From [facility] Mammogram Procedure(s): MM tomosynthesis diagnostic BI Accession Number(s): [id number] cc: NICHOLAS LUGO MD; Keshia Beck MD [...] 04/13/25 0852 DD/ 0800 TD/TT: 04/13/25 0835 Net Developer With Wcf: us Nicholas Lugo MD IMG BI PROCEDURES Edited Result - Final * BI US Breast Limited Right (04/13/2025 7:43 AM EDT) Anatomical Region Laterality Modality Breast Right Ultrasound 04/13/2025 7:43 AM EDT Narrative 04/13/2025 8:55 AM EDT [facility] [address] [place] [address] Ultrasound Report Signed Patient: Marina Pena MR #: [id number] : 1985 Acct:[id number] Age/Sex: 39 / F ADM Date: 04/13/25 Loc: HO.MAMMO Attending Dr: Nicholas Lugo MD Ordering Physician: NICHOLAS LUGO MD Date of Service: 04/13/25 Procedure(s): US breast RT limited Accession Number(s): [id number] cc: NICHOLAS LUGO MD; Keshia Beck MD [...] Berman DO Signed By: <Electronically signed by Deolris Berman DO in OV> 04/13/25 0852 DD/ 0743 TD/TT: 04/13/25 0840 Net Developer With Wcf: Procedure Note Donotuseinterpreter, Image - 04/13/2025 [facility] [address] [place], [place] [address] Ultrasound Report Signed Patient: AdriMarina Quach #: [id number] : 1985Acct:[id number] Age/Sex: 39 / FADM Date: 04/13/25 Loc: HO.MAMMO Attending Dr: Nicholas Lugo MD Ordering Physician: NICHOLAS LUGO MD Date of Service: 04/13/25 Procedure(s): US breast RT limited Accession Number(s): [id number] cc: NICHOLAS LUGO MD; Keshia Beck MD [...] 04/13/25 0852 DD/ 0743 TD/TT: 04/13/25 0840 Net Developer With Wcf: us Nicholas Lugo MD IMG US PROCEDURES Edited Result - Final * POCT HGB A1C (03/11/2025 9:50 AM EDT) Pathologist [facility] Hemoglobin A1C 5.8 4.0 - 6.0 % QC Media Lot # [id number] Lot# Expiration Date Blood 03/11/2025 9:50 AM EDT Result [facility] Keshia Mota MD POINT OF CARE TEST EN TER/EDIT ORDERABLES Final Result * Hepatitis C Antibody with Reflex to HCV, RNA, Quantitative, Real-Time PCR (09/06/2024 10:00 AM EST) [facility] Hepatitis C Antibody Nonreactive Nonreactive [facility] Comment:Antibodies to HCV no t detected; does not exclude early acuteHCV infection. Blood Venous blood specimen / Unknown 09/06/2024 10:00 AM EST 09/06/2024 11:06 AM EST Keshia Mota MD LAB BLOOD ORDERABLES Final Result [facility] [address] [place] [phone] * HIV-1/2 Antigen and Antibodies, Fourth Generation, with Reflexes (09/06/2024 10:00 AM EST) Pathologist [facility] HIV AB/AG Nonreactive Nonreactive [facility] Comment:HIV-1 p24 Ag and/or HIV-1/HIV-2 Ab not detected.A test result that is nonreactive does not exclude thepossibility of exposure to or infection with HIV-1 and/orHIV-2. Nonreactive results in this assay for individualswith prior exposure to HIV-1 and/or HIV-2 may be due toantigen and antibody levels that are below the limit ofdetection of this assay.[employer] HIV Ag/Ab Combo assay result andsupplemental assay results should be interpreted inconjunction with the patient's clinical presentation,history and other laboratory results. If the results areinconsistent with clinical evidence, additional testing issuggested to confirm the result. Blood Venous blood specimen / Unknown 09/06/2024 10:00 AM EST 09/06/2024 11:06 AM EST Keshia Mota MD LAB BLOOD ORDERABLES Final Result Performing Organization Address [facility] Co de Phone Number [facility] [address] [place] [phone] * (ABNORMAL) Lipid Panel, Standard (09/06/2024 10:00 AM EST) Triglycerides 250(H) <150 mg/dL [facility] Comment:Desirable Triglyceri de: less than 150 mg/dLBorderline High Triglyceride 150-199 mg/dLHigh Triglyceride: 200-499 mg/dLVery High Triglyceride: greater than or equal to 5OO mg/dL Cholesterol 140 <200 mg/dL [facility] Comment:Desirable Cholestero l: less than 200 mg/dLBorderline High Cholesterol: 200-239 mg/dLHigh Cholesterol: greater than 239 mg/dL LDL Cholesterol Calculated 44 <100 mg/dL [facility] Comment:Desirable LDL: less than 100 mg/dLNear Optimal/Above Optimal LDL: 110- 129 mg/dLBorderline High LDL: 130-159 mg/dLHigh LDL: 160-189 mg/dLVery High LDL: greater than or equal to 190 mg/dL HDL Cholesterol 46 >40 mg/dL [facility] Comment:Desirable HDL: great er than 40 mg/dL Note: This HDL assay may give artificially low results in patients with liver disease. Blood Venous blood specimen / Unknown 09/06/2024 10:00 AM EST 09/06/2024 11:06 AM EST us Keshia Mota MD LAB BLOOD ORDERABLES Final Result Performing Organization Address [facility] Co de Phone Number [facility] [address] [place] [phone] * HPV mRNA E6/E7 w/Reflex to HPV Genotypes 16, 18/45 (02/06/2023 10:12 AM EDT) HPV nRNA E6/E7 Not Detected Not Detected [facility] Comment:Methodology: Transcr iption-Mediated AmplificationThis assay detects E6/E7 viral messenger RNA (mRNA) from 14high-risk HPV types (16,18,31,33,35,39,45,51,52,56,58,59,66,68).Cervical sources are required for HPV testing.If a vaginal source from a patient who has had atotal hysterectomy with removal of cervix wassubmitted, please contact the testing laboratoryfor alternative testing options.For additional information, please refer tohttp://education.Nurix/faq/GPU984k6(This link if provided for information/educational purposes only.)THIS TEST WAS PERFORMED AT:[facility] [place] [phone] BOB MD HPV mRNA E6/E7 [facility] HPV 16 RNA [facility] HPV 18/45 RNA [facility] 02/06/2023 10:1 2 AM EDT 02/07/2023 11:00 AM EDT [facility] External Provider LAB CYT OLOGY ORDERABLES Final Result [facility] [address] [place] [address] [phone] * Pap Smear (02/06/2023 10:12 AM EDT) 02/06/2023 10:1 2 AM EDT 02/07/2023 11:00 AM EDT Narrative [facility] - 02/27/2023 7:33 PM EDT ----- ------- Name: Marina Pena Age/Sex: 37/F : 1985 Unit#: [id number] Attend Dr: MireilleLi [facility] Re02/06/23 Status: DEP REF Location: [facility] Disch: ----- ------- SPEC : [id number] RECD: 02/07/23-1099 STATUS: NOAM APPLE NUM: [id number] LYNDON: 02/06/23-[address]: MireilleLi [facility] ENTERED: 02/07/23-1128 SP TYPE: Pap Smr OTHR DR: Keshia Beck MD ORDERED: Pap Smear Addendum Addendum 1 Entered: 02/24/23-813 HPV mRNA E6/E7: NOT DETECTED This assay detects E6/E7 viral messenger RNA (mRNA) from 14 high-risk HPV types (16, 18, 31, 33, 35, 39, 45, 51, 52, 56, 58, 59, 66, 68) HPV testing performed by [facility], [place], [place]. See reference laboratory portion of the EMR for entire report. Addendum Signed (signature on file) Maribell Veliz 02/27/23 1933 ----- ------- Interpretation Satisfactory for evaluation. No endocervical cells seen. Negative for intraepithelial lesion or malignancy. Clinical Information LMP: 01/30/23 Previous PAP test: 07/13/18, WN Material Received ThinPrep-Cervical Copies To: Keshia Beck MD [address] [place], [place] [phone] [address] [place], [place] [phone] CONTINUED ON NEXT PAGE ----- ------- Name: Marina Pena Age/Sex: 37/F : 1985 Unit#: [id number] Attend Dr: Li Kendrick Re02/06/23 Status: DEP REF Location: [facility] Disch: ----- ------- SPEC : [id number] RECD: 02/07/23-1099 STATUS: NOAM APPLE NUM: [id number] LYNDON: 02/06/23-1012 [facility] DR: Li Kendrick [facility] ENTERED: 02/07/23-1128 SP TYPE: Pap Smr OT DR: Kesiha Beck MD ORDERED: Pap Smear ----- ------- Signed (signature on file) Marilee Arthur 02/10/23 1211 (signature on file) Maribell Keren 02/27/23 1933 ----- ------- END OF REPORT [facility] External Provider LAB [facility] ORDERABLES Final Result [facility] [address] [place] [address] [phone] from Last 3 Months or Most Recently Relevant to Health Maintenance [place] [address] [place] [address] [address] [place] [address] Care Teams Supervisor Stitching Department Relationship Specialty Start Date End Date Keshia Beck MD [address] [place] [phone] PCP - General Family Medicine 07/08/18
--- OUTSIDE RECORDS SUMMARY | 2025-06-28 12:39 | XMS_ITS | Encounter Summary ---
Author Organization [employer] Address [address] [facility] 7t [place] [address] Care Team Providers Care Automotive Refinisher Name Role Phone Keshia Beck MD Primary Care Provide r Encounter Details Date Type Department Care Team ([facility] Contact Info) Description 01/14/2025 Orders Only [facility] MEDICINE [address] [place] [address] Keshia Beck MD [address] [place] [address] Social History Tobacco Use Types Packs/Day Years [...] documented as of this encounter Care Teams Automotive Refinisher Relationship Specialty Start Date End Date Keshia Beck MD [address] [place] [address] PCP - General Family Medicine 07/08/18 documented as of this encounter
== END 2025-06-28 11:46 | disposition home or self-care (01) ==
LOC: HO.HWS 11:03
PROVIDERS: PCP Internal Medicine; Visit Provider Obstetrics & Gynecology
DX: Z30.09 Encounter for other general counseling and advice on contraception (principal); N39.0 Urinary tract infection, site not specified; Z32.02 Encounter for pregnancy test, result negative; Z30.432 Encounter for removal of intrauterine contraceptive device
CPT/HCPCS: 58301; 99213

== ENCOUNTER 2025-07-15 08:17 | Outpatient (REF) | payer MEDICAID, SELFPAY ==
--- OUTSIDE RECORDS SUMMARY | 2024-09-06 10:15 | XMS_ITS | Encounter Summary ---
Author Organization [employer] Address [address] [facility] [address] [place] [address] Care Team Providers Care Pipe Straightener Name Role Phone Juanito Beck MD Primary Care Provide r Reason for Referral * Consultation (Routine) - Authorized Specialty Diagnoses / Procedures Referred By Contac t Referred To Contact Sleep Medicine Diagnoses Obstructive sleep apnea syndrome Juanito Beck MD [address] [place] [phone] Phone: tel: fax: [facility] [address] [place], [place] Phone: tel: fax: Referral ID Status Reason Start Date Expiration Date Visits Requested Visits Authorized [id number] Authorized Specialty Services Required 09/13/2025 12 12 Reason for Visit * Reason Comments Annual Exam Encounter Details Date Type Department Care Team (Late st Contact Info) Description 09/06/2024 9:15 AM EST Office Visit [facility] [address] [place] [address] [phone] Juanito Beck MD [address] [place], [place] [phone] Newly diagnosed diabetes (CMS/HCC) (Primary Dx); Class 3 severe obesity due to excess calories with serious comorbidity and body mass index (BMI) of 50.0 to 59.9 in adult (CMS/HCC); Obstructive sleep apnea syndrome; Polyarthralgia; Encounter for preventive care; Dietary counseling; Exercise counseling Social History Tobacco Use Types Packs/Day Years Used Date Smoking Tobacco: Never Smokeless Tobacco: Never Depression Answer Date Recorded Patient Health Questionnaire-9 Score 0 10/25/2024 Patient Health Questionnaire-9 Score 0 10/25/2024 Last PHQ-9: Questionnaire Data Not on file 1 Housing Stability Answer Date Recorded What is your housing situation today? I have irena keyla 09/03/[address] you li ve. Do you have problems with any of the following? None of the above 09/03/2023 Food Insecurity Answer Date Recorded Within the past 12 months, y ou worried that your food would run out before you got money to buy more: Never True 09/03/2023 Within the past 12 months,th e food you bought just didn't last and you didn't have enough money to get more: Never True 05/2023 Transportation Answer Date Recorded In the past 12 months, has l ack of transportation kept you from medical appts, meetings, work or from getting things needed for daily living? No 09/03/2023 Utilities Answer Date Recorded In the past 12 months, has t he electric, gas, oil or water company threatened to shut off services in your home? No 09/03/2023 Depression Answer Date Recorded Patient Health Questionnaire-2 Score 0 10/25/2024 Internet Access Answer Date Recorded Internet Access Q1 Yes 08/27/2024 Internet Access Q2 Not on file 08/27/2024 Comments No Sex and Gender Information Value Date Recorded Sex Assigned at Female 08/26/2022 10:16 AM EDT Legal Sex Female 10:16 AM EDT Gender Identity Female 08/26/2022 10:16 AM EDT Sexual Orientation Straight 08/26/2022 10 :16 AM EDT documented as of this encounter Last Filed Vital Signs Vital Sign Reading Time Taken Comments Blood Pressure 128/74 09/06/2024 9:07 AM EST Pulse 84 09/06/2024 9:07 AM EST Temperature 36.9 C (98.5 F) 09/06/2024 9:07 AM EST Respiratory Rate 18 09/06/2024 9:07 AM EST Oxygen Saturation 98% 09/06/2024 9:07 AM EST Inhaled Oxygen Concentration - - Weight 146 kg (321 lb 12.8 oz) 09/06/2024 9:07 A M EST Height 165.1 cm (5' 5 ) 09/06/2024 9:07 AM EST Body Mass Index 53.55 09/06/2024 9:07 AM EST documented in this encounter Functional Status * Over the past 2 weeks, how often have you been bothered by any of the following problems? Question Answer Date of Assessment Author Patient Health Questionnaire -2 Score 0 10/25/2024 10:14 AM Kristin Ashby MA * Little interest or pleasure in doing things Answer Date of Assessment Author Not at all 10/25/2024 10:14 AM Kristin Ashby MA * Feeling down, depressed, or hopeless Answer Date of Assessment Author Not at all 10/25/2024 10:14 AM Kristin Ashby MA * Trouble falling or staying asleep, or sleeping too much Answer Date of Assessment Author Not at all 10/25/2024 10:14 AM Kristin Ashby MA * Feeling tired or having little energy Answer Date of Assessment Author Not at all 10/25/2024 10:14 AM Kristin Ashby MA * Poor appetite or overeating Answer Date of Assessment Author Not at all 10/25/2024 10:14 AM Kristin Ashby MA * Feeling bad about yourself - or that you are a failure or have let yourself or your family down Answer Date of Assessment Author Not at all 10/25/2024 10:14 AM Kristin Ashby MA * Trouble concentrating on things, such as reading the newspaper or watching television Answer Date of Assessment Author Not at all 10/25/2024 10:14 AM Kristin Ashby MA * Moving or speaking so slowly that other people could have noticed? Or the opposite - being so fidgety or restless that you have been moving around a lot more than usual. Answer Date of Assessment Author Not at all 10/25/2024 10:14 AM Kristin Ashby MA * Thoughts that you would be better off or hurting yourself in some way Answer Date of Assessment Author Not at all 10/25/2024 10:14 AM Kristin Ashby MA * Patient Health Questionnaire-9 Score Answer Date of Assessment Author 0 10/25/2024 10:14 AM Kristin Ashby MA * Over the last 2 weeks, how often have you been bothered by any of the following problems? Question Answer Date of Assessment Author Feeling nervous, anxious, or on edge 0 10/25/2024 10:14 AM Kristin Ashby MA Not being able to stop or co ntrol worrying 0 10/25/2024 10:14 AM Kristin Ashby MA Worrying too much about diff erent things 0 10/25/2024 10:14 AM Kristin Ashby MA Trouble relaxing 0 10/25/2024 10:14 AM Kristin Ashby MA Being so restless that it is hard to sit still 0 10/25/2024 10:14 AM Kristin Ashby MA Becoming easily annoyed or irritable 0 10/25/2024 10:14 AM Kristin Ashby MA Feeling afraid as if somethi ng awful might happen 0 10/25/2024 10:14 AM Kristin Ashby MA JAVIER-7 Total Score 0 10/25/2024 10:14 AM Kristin Ashby MA documented as of this encounter Progress Notes * Juanito Mota MD - 09/06/2024 9:15 AM EST SUBJECTIVE: Marina Hale is a 38 y.o. year old female who presents for Physical . Concerns for today's visit: Occupation:stay home Lives with: children Social Hx: denies drinking EtOH, denies smoking cigarettes and denies recreational drug use. Diet:regular Exercise:sedentary LMP:on control pills regular 08/09/24 Pap Smear: due on 02/07/2028 Eye Care:patient will schedule her appointment Dental Care:up to date PMHx:see below Immunizations: Reviewed, patient will like to walk in to vaccine clinic Acute Concerns: Patient reports she has being having cold symptoms for the past couple of weeks, she went to [facility] and was testes, she is negative for flu and COVID Patient reports polyarthralgia (bilateral hand pain and lower back pain) Patient reports she continues to struggles with her weight, she tries to eat healthy patient has gain approximately 10lbs in 1 year Social History Social History Narrative Not on file Patient Active Problem List Diagnosis Prediabetes Obstructive sleep apnea syndrome Morbid obesity ([facility]) Loss of sense of smell Irregular periods Glaucoma Gastroesophageal reflux disease Chronic low back pain Chronic cough Acanthosis nigricans Newly diagnosed diabetes ([facility]) Class 3 severe obesity due to excess calories with serious comorbidity and body mass index (BMI) of50.0 to 59.9 in adult ([facility]) Polyarthralgia Encounter for preventive care No family history on file. Review of Systems Constitutional: Negative. HENT: Negative. Respiratory: Negative. Cardiovascular: Negative. Musculoskeletal: Positive for arthralgias and myalgias. OBJECTIVE: Vitals: 09/06/24 0907 BP: 128/74 Pulse: 84 Resp: 18 Temp: 98.5 ??F (36.9 ??C) TempSrc: Oral SpO2: 98% Weight: 321 lb 12.8 oz (146 kg) Height: 5' 5 (1.651 m) Physical Exam Constitutional: Appearance: Normal appearance. Cardiovascular: Rate and Rhythm: Normal rate and regular rhythm. Pulmonary: Effort: Pulmonary effort is normal. Breath sounds: Normal breath sounds. Abdominal: General: Abdomen is flat. Palpations: Abdomen is soft. Musculoskeletal: Right lower leg: No edema. Left lower leg: No edema. Neurological: Mental Status: She is alert. Follow Up: Follow up for 7 weeks new diabetes, weight in person . Current Outpatient Medications on File Prior to Visit Medication Sig Dispense Refill albuterol (Proventil HFA) 108 (90 Base) MCG/ACT inhaler INHALE 2 PUFFS EVERY 4 HOURS NEEDED FOR WHEEZING OR SHORTNESS OF BREATH. 6.7 g 11 baclofen (Lioresal) 20 MG tablet TAKE 1 TABLET BY MOUTH THREE TIMES DAILY NEEDED FOR PAIN baclofen (Lioresal) 20 MG tablet TAKE 1 TABLET BY MOUTH THREE TIMES DAILY NEEDED FOR PAIN 60 tablet 3 D3 Super Strength 50 MCG (2000 UT) capsule TAKE 1 CAPSULE BY MOUTH ONCE DAILY 90 capsule 3 famotidine (Pepcid) 20 MG tablet TAKE 1 TABLET BY MOUTH TWICE DAILY 180 tablet 0 fluticasone (Flonase Allergy Relief) 50 MCG/ACT nasal spray Administer 1 spray into each nostril Once per day. Shake gently. Before first use, prime pump. After use, clean tip and replace cap. 16 g 12 loratadine (Claritin) 10 MG tablet TAKE 1 TABLET BY MOUTH EVERY DAY NEEDED FOR ALLERGIES 90 tablet 0 Spacer/Aero-Holding Chambers (OptiChamber Neena) misc 1 each every 4 (four) hours if needed (asthma). 1 each 0 [DISCONTINUED] acetaminophen (Tylenol) 500 MG tablet Take 2 tablets (1,000 mg) by mouth every 6 (six) hours if needed for moderate pain or fever for up to 25 doses. 40 tablet 0 [DISCONTINUED] ibuprofen 800 MG tablet TAKE 1 TABLET BY MOUTH THREE TIMES DAILY WITH FOOD NEEDEDFOR PAIN 90 tablet 0 [DISCONTINUED] ibuprofen 800 MG tablet TAKE 1 TABLET BY MOUTH THREE TIMES DAILY WITH FOOD NEEDED(for pain) 90 tablet 0 [DISCONTINUED] Spacer/Aero-Holding Chambers (OptiChamber Neena) misc 1 each every 4 (four) hours if needed (asthma). 1 each 0 No current facility-administered medications on file prior to visit. Problem List Items Addressed This Visit Newly diagnosed diabetes ([facility]) - Primary Diabetes is: not controlled - Lab Results Component Value Date HGBA1C 6.9 (A) 09/06/2024 HGBA1C 6.7 (A) 09/03/2023 HGBA1C 6.1 (H) 04/05/2022 -No results found for: GLUF , MICROALBUR , LDLCALC , CREATININE -Changes: I started patient on metformin, diabetes supplies I ask her to log her glucose - Diabetic eye exam:pending - Diabetic foot exam:pending - Continue lifestyle modifications - Continue current medications -f/u in 7 weeks Relevant Medications FREESTYLE LITE test strip Lancets misc Alcohol Swabs 70 % pads Blood Glucose Monitoring Suppl (FreeStyle Leona Lite) w/Device kit metFORMIN (Glucophage) 500 MG tablet Other Relevant Orders POCT HGB A1C (Completed) POCT Glucose (Completed) CBC auto differential Comprehensive Metabolic Panel HIV-1/2 Antigen and Antibodies, Fourth Generation, with Reflexes Hepatitis C Antibody with Reflex to HCV, RNA, Quantitative, Real-Time PCR Lipid Panel, Standard Vitamin D, 25-Hydroxy, Total, Immunoassay TSH with Reflex to Free T4 Class 3 severe obesity due to excess calories with serious comorbidity and body mass index (BMI) of50.0 to 59.9 in adult (CMS/[facility]) Today extensive discussion was done about life style modifications I advise healthy diet (low calorie) and cardiovascular exercise I ordered labs after review of labs I will consider starting her on zepbound Obstructive sleep apnea syndrome Continue to use CPAP every night Sleep medicine referral Relevant Orders Referral to Sleep Medicine Polyarthralgia Alternate ibuprofen with acetaminophen if needed Relevant Medications ibuprofen 800 MG tablet acetaminophen (Tylenol) 500 MG tablet Encounter for preventive care See HPI Other Visit Diagnoses Dietary counseling Exercise counseling documented in this encounter Miscellaneous Notes * Assessment & Plan Note - Juanito Mota MD - 09/06/2024 10:16 AM EST Associated Problem(s): Encounter for preventive care See HPI * Assessment & Plan Note - Juanito Mota MD - 09/06/2024 10:16 AM EST Associated Problem(s): Obstructive sleep apnea syndrome Continue to use CPAP every night Sleep medicine referral * Assessment & Plan Note - Juanito Mota MD - 09/06/2024 10:15 AM EST Associated Problem(s): Class 3 severe obesity due to excess calories with serious comorbidity and body mass index (BMI) of 50.0 to 59.9 in adult Today extensive discussion was done about life style modifications I advise healthy diet (low calorie) and cardiovascular exercise I ordered labs after review of labs I will consider starting her on zepbound * Assessment & Plan Note - Juanito Mota MD - 09/06/2024 10:14 AM EST Associated Problem(s): Polyarthralgia Alternate ibuprofen with acetaminophen if needed * Assessment & Plan Note - Juanito Mota MD - 09/06/2024 10:13 AM EST Associated Problem(s): Newly diagnosed diabetes ([facility]) Diabetes is: not controlled - Lab Results Component Value Date HGBA1C 6.9 (A) 09/06/2024 HGBA1C 6.7 (A) 09/03/2023 HGBA1C 6.1 (H) 04/05/2022 -No results found for: GLUF , MICROALBUR , LDLCALC , CREATININE -Changes: I started patient on metformin, diabetes supplies I ask her to log her glucose - Diabetic eye exam:pending - Diabetic foot exam:pending - Continue lifestyle modifications - Continue current medications -f/u in 7 weeks * Addendum Note - Juanito Mota MD - 09/06/2024 9:15 AM ESTAddended by: JUANITO DAILEY on: 09/06/2024 10:17 AM Modules accepted: Orders documented in this encounter Plan of Treatment Upcoming Encounters Date Type Department Care Team (Late st Contact Info) Description 09/26/2025 10:15 AM EST Office Visit [facility] [address] [place] [address] Juanito Beck MD [address] [place], [place] [phone] documented as of this encounter Procedures Procedure Name Priority Date/Time Associated Diagnosis Comments AMB REFERRAL TO SLEEP MEDICINE Routine 02/22/2025 Obstructive sleep apnea syndrome VITAMIN D,25-OH,TOTAL,IA Routine 09/06/2024 10:00 AM EST Newly diagnosed diabetes (CMS/HCC) TSH W/REFLEX TO FT4 Routine 09/06/2024 1 0:00 AM EST Newly diagnosed diabetes (CMS/HCC) CBC WITH AUTO DIFFERENTIAL Routine 09/06/2024 10:00 AM EST Newly diagnosed diabetes (CMS/HCC) HEPATITIS C AB W/REFL TO HCV RNA, QN, PCR Routine 09/06/2024 10:00 AM EST Newly diagnosed diabetes (CMS/HCC) HIV 1/2 ANTIGEN/ANTIBODY, FOURTH GENERATION W/RFL Routine 09/06/2024 10:00 AM EST Newly diagnosed diabetes (CMS/HCC) LIPID PANEL, STANDARD Routine 09/06/2024 10:00 AM EST Newly diagnosed diabetes (CMS/HCC) COMPREHENSIVE METABOLIC PANEL Routine 09/06/2024 10:00 AM EST Newly diagnosed diabetes (CMS/HCC) POCT GLYCATED HEMOGLOBIN, TOTAL Routine 09/06/2024 9:22 AM EST Newly diagnosed diabetes (CMS/HCC) POCT GLUCOSE Routine 09/06/2024 9:21 AM EST Newly diagnosed diabetes (CMS/HCC) documented in this encounter Results * Referral to Sleep Medicine (02/22/2025) us Juanito Mota MD OUTPATIENT REFERRAL O RDERABLES Final Result * TSH with Reflex to Free T4 (09/06/2024 10:00 AM EST) TSH reflex Free T4 3.09 0.32 - 4.0 uIU/mL [facility] Blood Venous blood specimen / Unknown 09/06/2024 10:00 AM EST 09/06/2024 11:06 AM EST us Juainto Mota MD LAB BLOOD ORDERABLES Final Result Performing Organization Address [facility]/ZIP Co de Phone Number [facility] [address] [place] [phone] * (ABNORMAL) Vitamin D, 25-Hydroxy, Total, Immunoassay (09/06/2024 10:00 AM EST) Vitamin D 25-OH Total 14.8(L) >30 ng/mL [facility] Comment:Health Based Referen ce Values*< 20 ng/mL Vxdetqiwn65-22 ng/mL Insufficient> 30 ng/mL Sufficient*Eliu MENDEZ. N Engl J Med. 2007;357:266-280Care must be taken in interpreting Vitamin D results fromdifferent laboratories and methodologies. Published datademonstrated that results from patients undergoinghemodialysis may show a negative bias when tested withvarious automated 25-OH vitamin D assays when compared toLC-MS/MS.When testing samples from patients whose predominant form ofVitamin D is Vitamin D2, such as patients receiving VitaminD2 supplementation, results that are subtherapeutic shouldbe confirmed with another method such as LC-MS/MS. Blood Venous blood specimen / Unknown 09/06/2024 10:00 AM EST 09/06/2024 11:06 AM EST us Juanito Mota MD LAB BLOOD ORDERABLES Final Result Performing Organization Address City/[facility]/ZIP Co de Phone Number [facility] [address] [place] [phone] * (ABNORMAL) Lipid Panel, Standard (09/06/2024 10:00 AM EST) Triglycerides 250(H) <150 mg/dL [facility] Comment:Desirable Triglyceri de: less than 150 mg/dLBorderline High Triglyceride 150-199 mg/dLHigh Triglyceride: 200-499 mg/dLVery High Triglyceride: greater than or equal to 5OO mg/dL Cholesterol 140 <200 mg/dL [facility] Comment:Desirable Cholestero l: less than 200 mg/dLBorderline High Cholesterol: 200-239 mg/dLHigh Cholesterol: greater than 239 mg/dL LDL Cholesterol Calculated 44 <100 mg/dL [facility] Comment:Desirable LDL: less than 100 mg/dLNear Optimal/Above Optimal LDL: 110- 129 mg/dLBorderline High LDL: 130-159 mg/dLHigh LDL: 160-189 mg/dLVery High LDL: greater than or equal to 190 mg/dL HDL Cholesterol 46 >40 mg/dL [facility] Comment:Desirable HDL: great er than 40 mg/dL Note: This HDL assay may give artificially low results in patients with liver disease. Blood Venous blood specimen / Unknown 09/06/2024 10:00 AM EST 09/06/2024 11:06 AM EST us Juanito Mota MD LAB BLOOD ORDERABLES Final Result Performing Organization Address [facility]/ZIP Co de Phone Number [facility] [address] [place] [phone] * Hepatitis C Antibody with Reflex to HCV, RNA, Quantitative, Real-Time PCR (09/06/2024 10:00 AM EST) Hepatitis C Antibody Nonreactive Nonreactive [facility] Comment:Antibodies to HCV no t detected; does not exclude early acuteHCV infection. Blood Venous blood specimen / Unknown 09/06/2024 10:00 AM EST 09/06/2024 11:06 AM EST us Juanito Mota MD LAB BLOOD ORDERABLES Final Result Performing Organization Address [facility] Co de Phone Number [facility] [address] [place] [phone] * HIV-1/2 Antigen and Antibodies, Fourth Generation, with Reflexes (09/06/2024 10:00 AM EST) HIV AB/AG Nonreactive Nonreactive [facility] Comment:HIV-1 p24 Ag and/or HIV-1/HIV-2 Ab not detected.A test result that is nonreactive does not exclude thepossibility of exposure to or infection with HIV-1 and/orHIV-2. Nonreactive results in this assay for individualswith prior exposure to HIV-1 and/or HIV-2 may be due toantigen and antibody levels that are below the limit ofdetection of this assay.The [employer] HIV Ag/Ab Combo assay result andsupplemental assay results should be interpreted inconjunction with the patient's clinical presentation,history and other laboratory results. If the results areinconsistent with clinical evidence, additional testing issuggested to confirm the result. Blood Venous blood specimen / Unknown 09/06/2024 10:00 AM EST 09/06/2024 11:06 AM EST us Juanito Mota MD LAB BLOOD ORDERABLES Final Result [facility] [address] [place], [place] [phone] * (ABNORMAL) Comprehensive Metabolic Panel (09/06/2024 10:00 AM EST) Sodium 139 135 - 145 mmol/L [facility] Potassium 3.9 3.3 - 5.1 mmol/L [facility] Chloride 111(H) 96 - 108 mmol/L [facility] Carbon Dioxide 21(L) 22 - 29 mmol/L [facility] Anion Gap 11(L) 12 - 20 [facility] Urea Nitrogen (BUN) 10 9 - 16 mg/dL [facility] Creatinine, Serum 0.63 0.5 - 1.4 mg/dL [facility] Estimated Glomerular Filt Rate >60 [facility] Comment:Chronic Kidney Disea se: Estimated GFR < 60 mL/min/1.31o7Ihaldu Kidney Disease: Estimated GFR < 15 mL/min/1.73m2 Glucose 134(H) 60 - 115 mg/dL [facility] Calcium 8.7 8.4 - 10.2 mg/dL [facility] Bilirubin, Total 0.3 0.0 - 1.0 mg/dL [facility] Aspartate Amino Transferase 12 5 - 31 U/L [facility] Alanine Aminotransferase 7 0 - 31 U/L [facility] Total Protein 7.4 6.5 - 8.0 g/dL [facility] Albumin Level 3.5 3.5 - 5.0 g/dL [facility] Alkaline Phosphatase 64 39 - 117 U/L [facility] Blood Venous blood specimen / Unknown 09/06/2024 10:00 AM EST 09/06/2024 11:06 AM EST us Juanito Mota MD LAB BLOOD ORDERABLES Final Result [facility] [address] [place] [phone] * (ABNORMAL) CBC auto differential (09/06/2024 10:00 AM EST) White Blood Count 13.0(H) 4.8 - 10.8 X10*3/uL [facility] Red Blood Count 4.14(L) 4.20 - 5.50 X10*6/uL [facility] Hemoglobin 12.4 12.0 - 16.0 g/dl [facility] Hematocrit 38.1 37.0 - 47.0 % [facility] Mean Corpuscular Volume 92.0 80.0 - 98.0 fL [facility] Mean Corpuscular Hemoglobin 30.0 27.0 - 33.0 pg [facility] Mean Corpuscular HGB Conc 32.5 31.0 - 35.0 g/dl [facility] Red Cell Distribution Width 12.9 11.0 - 16.0 % [facility] Platelet Count 296 160 - 400 X10*3/uL [facility] Mean Platelet Volume 12.0 9.4 - 12.3 fL [facility] Neutrophils Percent Auto 71.7 45 - 73 % [facility] Imm Gran Pct Auto 0.4 0.0 - 0.4 % [facility] Lymphocytes Percent Auto 22.3 20 - 40 % [facility] Monocytes Percent Auto 4.0 2 - 11 % [facility] Eosinophils Percent Auto 1.4 0 - 4 % [facility] Basophils Percent Auto 0.2 0 - 2 % [facility] NRBC Pct Auto 0.0 0.0 - 0.2 /100WBC [facility] Neutrophils Absolute Auto 9.3(H) 2.0 - 8.3 x10*3/uL [facility] Imm Gran Abs Auto 0.05(H) 0.00 - 0.03 X10*3/uL [facility] Lymphocytes Absolute Auto 2.9 1.2 - 4.9 X10*3/uL [facility] Monocytes Absolute Auto 0.5 0.1 - 1.2 X10*3/uL [facility] Eosinophils Absolute Auto 0.2 0.0 - 0.4 X10*3/uL [facility] Basophils Absolute Auto 0.0 0.0 - 0.2 X10*3/uL [facility] NRBC Abs Auto 0.000 0.0 - 0.012 X10*3/uL [facility] Blood Venous blood specimen / Unknown 09/06/2024 10:00 AM EST 09/06/2024 11:06 AM EST us Juanito Mota MD LAB BLOOD ORDERABLES Final Result [facility] [address] [place] [address] [phone] * (ABNORMAL) POCT HGB A1C (09/06/2024 9:22 AM EST) Hemoglobin A1C 6.9(A) 4.0 - 6.0 % [employer] Lot # [id number] Lot# Expiration Date ,671,019 Blood 09/06/2024 9:22 AM EST Juanito Mota MD POINT OF CARE TEST EN TER/EDIT ORDERABLES Final Result * POCT Glucose (09/06/2024 9:21 AM EST) Glucose Blood, POC 102 60 - 200 mg/dL [employer] Lot # [id number] Lot# Expiration Date [id number] Blood Capillary blood specimen / Unknown 09/06/2024 9:21 AM EST Juanito Mota MD POINT OF CARE TEST EN TER/EDIT ORDERABLES Final Result documented in this encounter Visit Diagnoses Diagnosis Newly diagnosed diabetes (CMS/[facility])- Primary Type II or unspecified type diabetes mellitus without mention of complication, not stated as uncontrolled Class 3 severe obesity due to excess calories with serious comorbidity and body mass index (BMI) of 50.0 to 59.9 in adult Obstructive sleep apnea syndrome Obstructive sleep apnea (adult) (pediatric) Polyarthralgia Pain in joint, multiple sites Encounter for preventive care Dietary counseling Dietary surveillance and counseling Exercise counseling documented in this encounter Additional Health Concerns Assessment Noted Time PHQ-9 Depression Total Score: 0 09/03/20 23 3:08 PM EST documented as of this encounter Care Teams Pipe Straightener Relationship Specialty Start Date End Date Juanito Beck MD [address] [place] [id number] PCP - General Family Medicine 07/08/18 documented as of this encounter
--- OUTSIDE RECORDS SUMMARY | 2025-07-15 08:46 | XMS_ITS | Encounter Summary ---
Author Organization [employer] Address [address] [facility] 7t [place] [address] Care Team Providers Care Rubber Goods Finisher Name Role Phone Keshia Beck MD Primary Care Provide r Encounter Details Date Type Department Care Team ([facility] Contact Info) Description 02/17/2023 Orders Only [facility] MED & PEDS [address] [place], [place] [phone] Marina Fair LPN Social History Tobacco Use [...] Upcoming Encounters Date Type Department Care Team ([facility] Contact Info) Description 09/26/2025 10:15 AM EST Office Visit [facility] MEDICINE [address] [place], [place] [phone] Keshia Beck MD [address] [place], [place] [phone] documented as of this encounter Visit Diagnoses Not on filedocumented in this encounter Care Teams Rubber Goods Finisher Relationship Specialty Start Date End Date Keshia Beck MD [address] [place] [address] PCP - General Family Medicine 07/08/18 documented as of this encounter
--- OUTSIDE RECORDS SUMMARY | 2025-07-15 08:46 | XMS_ITS | Encounter Summary ---
Author Organization [employer] Address [address] [facility] 7t [place] [address] Care Team Providers Care Oil Spraying Machine Operator Name Role Phone Keshia Beck MD Primary Care Provide r Reason for Visit * Reason Comments Med Refill Encounter Details Date Type Department Care Team ([facility] st Contact Info) Description 06/15/2025 Refill [facility] MEDICINE [address] [place] [address] Keshia Beck MD [address] [place] [address] Class 3 severe obesity due to excess [...] Description 09/26/2025 10:15 AM EST Office Visit [facility] MEDICINE [address] [place] [address] Keshia Beck MD [address] [place] [address] documented as of this encounter Visit Diagnoses Diagnosis Class 3 severe obesity due to excess calories with serious comorbidity and body mass index (BMI) of 50.0 to 59.9 in adult documented in this encounter Additional Health Concerns Assessment Noted Time PHQ-9 Depression Total Score: 0 10/25/20 24 10:14 AM EST documented as of this encounter Care Teams Oil Spraying Machine Operator Relationship Specialty Start Date End Date Keshia Beck MD [address] [place] [address] PCP - General Family Medicine 07/08/18 documented as of this encounter
--- OUTSIDE RECORDS SUMMARY | 2025-07-15 08:46 | XMS_ITS | Encounter Summary ---
Author Organization [employer] Address [address] [facility] [address]t [place] [address] Care Team Providers Care Tugboat Mate Name Role Phone Keshia Beck MD Primary Care Provide r Reason for Visit * Reason Onset Date Comments Prior Authorization 11/10/2024 Encounter Details Date Type Department Care Team ([facility] st Contact Info) Description 11/10/2024 Telephone [facility] MEDICINE [address] [place] [address] Keshia Beck MD [address] [place] [address] Prior Authorization Social History Tobacco Use Types [...] regarding RX Zepbound PA was denied. Per [facility] patients need to trial oral medications such [...] Description 09/26/2025 10:15 AM EST Office Visit [facility] MEDICINE [address] [place], [place] [phone] Keshia Beck MD [address] [place] [address] documented as of this encounter Visit Diagnoses Not on filedocumented in this encounter Additional Health Concerns Assessment Noted Time PHQ-9 Depression Total Score: 0 10/25/20 24 10:14 AM EST documented as of this encounter Care Teams Tugboat Mate Relationship Specialty Start Date End Date Keshia Beck MD [address] [place] [address] PCP - General Family Medicine 07/08/18 documented as of this encounter
--- OUTSIDE RECORDS SUMMARY | 2025-07-15 08:46 | XMS_ITS | Clinical Summary ---
Author Organization [employer] Address [address] [facility] 7t [place] [address] Care Team Providers Care 4 H Youth Development Specialist Name Role Phone Keshia Beck MD Primary Care Provide r Allergies Active Allergy Reactions Criticality Noted Date Comments Penicillins 03/26/2017 Other reaction(s): Unknown Medications albuterol (Proventil HFA) 108 (90 Base) MCG/ACT inhalerIndicat ions:Influenza -like symptoms INHALE 2 PUFFS EVERY 4 HOURS NEEDED FOR WHEEZING OR SHORTNESS OF BREATH. 6.7 g 11 023 Active baclofen (Lioresal) 20 MG tablet TAKE 1 TABLET BY MOUTH THREE TIMES DAILY NEEDED FOR PAIN 023 Active D3 Super Strength 50 MCG (2000 UT) capsule TAKE 1 CAPSULE BY MOUTH ONCE DAILY 90 capsule 3 023 Active baclofen (Lioresal) 20 MG tablet TAKE 1 TABLET BY MOUTH THREE TIMES DAILY NEEDED FOR PAIN 60 tablet 3 023 Active famotidine (Pepcid) 20 MG tablet TAKE 1 TABLET BY MOUTH TWICE DAILY 180 tablet 024 Active loratadine (Claritin) 10 MG tabletIndicati ons:Allergic rhinitis, unspecified seasonality, unspecified trigger TAKE 1 TABLET BY MOUTH EVERY DAY NEEDED FOR ALLERGIES 90 tablet 024 Active fluticasone (Flonase Allergy Relief) 50 MCG/ACT nasal sprayIndicatio ns:Influenza-l cody symptoms Administer 1 spray into each nostril Once per day. Shake gently. Before first use, prime pump. After use, clean tip and replace cap. 16 g 12 024 2024 Active Spacer/Aero-Ho lding Chambers (OptiChamber Neena) miscIndication s:Influenza-li ke symptoms 1 each every 4 (four) hours if needed (asthma). 1 each Active FREESTYLE LITE test stripIndicatio ns:Newly diagnosed diabetes ([facility]) Use to test blood sugar 2 times daily 100 each 12 024 2024 Active Blood Glucose Monitoring Suppl (FreeStyle [place] Lite) w/Device kitIndications :Newly diagnosed diabetes ([facility]) Use to test blood sugar 2 times daily 1 kit Active cholecalcifero l (Vitamin D-3) 50 MCG (1999 UT) capsuleIndicat ions:Vitamin D deficiency Take 1 capsule (50 mcg) by mouth Once per day. 30 capsule 2 Active cyclobenzaprin e (Flexeril) 10 MG tabletIndicati ons:Left hip pain Take 1 tablet (10 mg) by mouth 3 times daily for 10 days. 30 tablet 024 Active topiramate (Topamax) 25 MG tabletIndicati ons:Class 3 severe obesity due to excess calories with serious comorbidity and body mass index (BMI) of 50.0 to 59.9 in adult TAKE 1 TABLET BY MOUTH DAILY 30 tablet 1 025 Active acetaminophen (Tylenol) 500 MG tabletIndicati ons:Polyarthra lgia Take 2 tablets (1,000 mg) by mouth every 6 (six) hours if needed for moderate pain or fever for up to 40 doses. 40 tablet 025 Active ibuprofen 400 MG tablet Take 1 tablet (400 mg) by mouth every 6 (six) hours if needed for moderate pain or fever for up to 30 doses. 30 tablet 025 Active lidocaine (Lidoderm) 5 % patch Apply 1 patch topically Once per day. Remove & discard patch within 12 hours or as directed by MD. 30 patch 2 025 2025 Active Tirzepatide-We ight Management (Zepbound) 5 MG/0.5ML solution auto-injectorI ndications:Cla ss 3 severe obesity due to excess calories with serious comorbidity and body mass index (BMI) of 50.0 to 59.9 in adult Inject 0.5 mL (5 mg) under the skin 1 (one) time per week. INJECT ONE PEN (=5 MG) SUBCUTANEOUSLY ONCE A WEEK 2 mL 025 Active Alcohol Swabs (Alcohol Prep) 70 % padsIndication s:Newly diagnosed diabetes ([facility]) USE DIRECTED TO TEST BLOOD SUGAR TWICE DAILY 100 each 2 025 Active TRUEplus Lancets 33G miscIndication s:Newly diagnosed diabetes ([facility]) USE DIRECTED TO TEST BLOOD SUGAR TWICE DAILY 100 each 2 025 Active metFORMIN (Glucophage) 500 MG tabletIndicati ons:Newly diagnosed diabetes ([facility]) TAKE 1 TABLET BY MOUTH TWICE DAILY IN THE MORNING AND IN THE EVENING WITH MEALS 180 tablet 1 025 Active ibuprofen 800 MG tabletIndicati ons:Polyarthra lgia TAKE 1 TABLET THREE TIMES DAILY WITH FOOD NEEDED FOR PAIN 90 tablet 025 Active Tirzepatide-We ight Management (Zepbound) 7.5 MG/0.5ML solution auto-injectorI ndications:Cla ss 3 severe obesity due to excess calories with serious comorbidity and body mass index (BMI) of 50.0 to 59.9 in adult Inject 0.5 mL (7.5 mg) under the skin every 7 (seven) days. 2 mL 025 Active Tirzepatide-We ight Management (Zepbound) 12.5 MG/0.5ML solution auto-injectorI ndications:Cla ss 3 severe obesity due to excess calories with serious comorbidity and body mass index (BMI) of 50.0 to 59.9 in adult Inject 0.5 mL (12.5 mg) under the skin 1 (one) time per week. INJECT ONE PEN (=12.5 MG) SUBCUTANEOUSLY ONCE A WEEK 2 mL 025 Active Tirzepatide-We ight Management (Zepbound) 10 MG/0.5ML solution auto-injectorI ndications:Cla ss 3 severe obesity due to excess calories with serious comorbidity and body mass index (BMI) of 50.0 to 59.9 in adult Inject 0.5 mL (10 mg) under the skin 1 (one) time per week. 2 mL 025 2024 Discontinued Active Problems Problem Noted Date Diagnosed Date [...] to high blood pressure readings RT 6 david Assessment & Plan (09/06/2024 10:15 [...] Encounters Date Type Department Care Team Description 07/14/2025 Telephone [facility] MEDICINE [address] [place] [address] Kierra Pozo, addictions recovery specialist Orders 07/12/2025 Refill [facility] [address] [place] [address] Keshia Beck MD Class 3 severe obesity due to excess calories with serious comorbidity and body mass index (BMI) of 50.0 to 59.9 in adult 07/07/2025 Telephone [facility] [address] [place], [place] [phone] Keshia Beck MD NOV RECALL 06/28/2025 Orders Only GENERIC EXTERNAL DATA DEPARTMENT Provider, Generic External Data 06/21/2025 Orders Only GENERIC EXTERNAL DATA DEPARTMENT Provider, Generic External Data 06/16/2025 Orders Only [facility] [address] [place] [address] Keshia Beck MD Class 3 severe obesity due to excess calories with serious comorbidity and body mass index (BMI) of 50.0 to 59.9 in adult (Primary Dx) 06/15/2025 Refill [facility] [address] [place] [address] Keshia Beck MD Class 3 severe obesity due to excess calories with serious comorbidity and body mass index (BMI) of 50.0 to 59.9 in adult 05/19/2025 Refill [facility] [address] [place] [address] Keshia Beck MD Class 3 severe obesity due to excess calories with serious comorbidity and body mass index (BMI) of 50.0 to 59.9 in adult 05/17/2025 Refill [facility] & PEDS [address] [place] [address] Keshia Beck MD Polyarthralgia 05/16/2025 Refill [facility] [address] [place], [place] [phone] Keshia Beck MD Newly diagnosed diabetes ([facility]); Polyarthralgia 04/19/2025 Refill [facility] [address] [place], [place] [phone] Keshia Beck MD Class 3 severe obesity due to excess calories with serious comorbidity and body mass index (BMI) of 50.0 to 59.9 in adult; Polyarthralgia from Last 3 Months Immunizations Immunization Administration [...] 03/11/2025 9:41 AM EDT Plan of Treatment Upcoming Encounters Date Type Department Care Team (Late st Contact Info) Description 09/26/2025 10:15 AM EST Office Visit [facility] [address] [place] [address] Keshia Beck MD [address] [place] [address] Health Maintenance Due Date Last Done Comments Disability Screening 1985 Diabetes: Foot Exam 1995 Eye Exam 1995 Family Planning (PISQ) 2000 HPV Vaccines (1 - 3-dose series) 2000 Diabetes: Urine Protein Screening 2004 Hepatitis B Vaccines (1 of 3 - 19+ 3-dose series) 2004 COVID-19 Vaccine (3 - 2024- season) 2025 10/12/2021, 01/17/2021 Influenza Vaccine (#1) 2025 , 09/20/2020, 09/25/2018 SDOH Screening 08/27/2025 08/27/2024 Alcohol/Substance Use Screening 09/06/2025 09/06/2024 Lipid Panel 09/06/2025 09/06/2024, 03/27, 09/29/2020 Diabetes: Hemoglobin A1C 09/11/2025 025, 09/06/2024, [...] Procedure Name Priority Date/Time Associated Diagnosis Comments CULTURE, URINE, ROUTINE Routine 06/28/2025 11:00 AM EDT CHLAMYDIA/N. GONORRHOEAE RNA, TMA, UROGENITAL Routine 06/21/2025 3:00 PM EDT POCT GLYCATED HEMOGLOBIN, TOTAL Routine 03/11/2025 9:50 [...] Recently Relevant to Health Maintenance Results * Culture, Urine, Routine (06/28/2025 11:00 AM EDT) Urine Urine specimen obtained by clean catch procedure / Unknown 06/28/2025 11:00 AM EDT 06/28/2025 3:32 PM EDT Comment:[facility] - 06/30/2025 10:41 AM EDT Urine Culture Report Result Urine Culture 10,000 to 50,000 cfu/ml Urine Culture Mixed bacterial sabino characteristic of Urine Culture urogenital contamination. Specimen Source: Urine clean catch us Generic External Data Provider LAB MICROBIOLOGY - GENERAL ORDERABLES Final Result [facility] [address] [place] [phone] * Chlamydia/N. Gonorrhoeae RNA, TMA, Urogenitial (06/21/2025 3:00 PM EDT) CT PCR NOT DETECTED Not Detect. [facility] Comment:A not detected test result [...] psychologicalconsequences. NG PCR NOT DETECTED Not Detect. [facility] Comment:A not detected test result [...] 3:00 PM EDT 06/21/2025 6:46 PM EDT Generic External Data Provider LAB MICROBIOLOGY - GENERAL ORDERABLES Final Result Performing Organization Address City/[facility]/ZIP Co de Phone Number [facility] [address] [place] [phone] * POCT HGB A1C (03/11/2025 9:50 AM EDT) [facility] Hemoglobin A1C 5.8 4.0 - 6.0 % QC Media Lot # [id number] Lot# Expiration Date 689 Blood 03/11/2025 9:50 AM EDT Keshia Mota MD POINT OF CARE TEST EN TER/EDIT ORDERABLES Final Result * Hepatitis C Antibody with Reflex to HCV, RNA, Quantitative, Real-Time PCR (09/06/2024 10:00 AM EST) [facility] Hepatitis C Antibody Nonreactive Nonreactive [facility] Comment:Antibodies to HCV no t detected; does not exclude early acuteHCV infection. Blood Venous blood specimen / Unknown 09/06/2024 10:00 AM EST 09/06/2024 11:06 AM EST Keshia Mota MD LAB BLOOD ORDERABLES Final Result Performing Organization Address [facility]/ZIP Co de Phone Number [facility] [address] [place] [phone] * HIV-1/2 Antigen and Antibodies, Fourth Generation, with Reflexes (09/06/2024 10:00 AM EST) [facility] HIV AB/AG Nonreactive Nonreactive [facility] Comment:HIV-1 p24 Ag and/or HIV-1/HIV-2 Ab not detected.A test result that is nonreactive does not exclude thepossibility of exposure to or infection with HIV-1 and/orHIV-2. Nonreactive results in this assay for individualswith prior exposure to HIV-1 and/or HIV-2 may be due toantigen and antibody levels that are below the limit ofdetection of this assay.The [employer] HIV Ag/Ab Combo assay result andsupplemental assay results should be interpreted inconjunction with the patient's clinical presentation,history and other laboratory results. If the results areinconsistent with clinical evidence, additional testing issuggested to confirm the result. Blood Venous blood specimen / Unknown 09/06/2024 10:00 AM EST 09/06/2024 11:06 AM EST us Keshia Mota MD LAB BLOOD ORDERABLES Final Result [facility] [address] [place] [phone] * (ABNORMAL) Lipid Panel, Standard (09/06/2024 10:00 AM EST) Triglycerides 250(H) <150 mg/dL [facility] Comment:Desirable Triglyceri de: less than 150 mg/dLBorderline High Triglyceride 150-199 mg/dLHigh Triglyceride: 200-499 mg/dLVery High Triglyceride: greater than or equal to 5OO mg/dL Cholesterol 140 <200 mg/dL [facility] Comment:Desirable Cholestero l: less than 200 mg/dLBorderline High Cholesterol: 200-239 mg/dLHigh Cholesterol: greater than 239 mg/dL LDL Cholesterol Calculated 44 <100 mg/dL [facility] Comment:Desirable LDL: less than 100 mg/dLNear Optimal/Above Optimal LDL: 110- 129 mg/dLBorderline High LDL: 130-159 mg/dLHigh LDL: 160-189 mg/dLVery High LDL: greater than or equal to 190 mg/dL HDL Cholesterol 46 >40 mg/dL [facility] Comment:Desirable HDL: great er than 40 mg/dL Note: This HDL assay may give artificially low results in patients with liver disease. Blood Venous blood specimen / Unknown 09/06/2024 10:00 AM EST 09/06/2024 11:06 AM EST us Keshia Mota MD LAB BLOOD ORDERABLES Final Result [facility] [address] [place] [phone] [phone] * HPV mRNA E6/E7 w/Reflex to HPV Genotypes 16, 18/45 (02/06/2023 10:12 AM EDT) HPV nRNA E6/E7 Not Detected Not Detected [facility] Comment:Methodology: Transcr iption-Mediated AmplificationThis assay detects E6/E7 viral messenger RNA (mRNA) from 14high-risk HPV types (16,18,31,33,35,39,45,51,52,56,58,59,66,68).Cervical sources are required for HPV testing.If a vaginal source from a patient who has had atotal hysterectomy with removal of cervix wassubmitted, please contact the testing laboratoryfor alternative testing options.For additional information, please refer [email or web address]/BEL076x3(This link if provided for information/educational purposes only.)THIS TEST WAS PERFORMED AT:[employer] [place] [phone] BOB MD HPV mRNA E6/E7 [facility] HPV 16 RNA [facility] HPV 18/45 RNA [facility] 02/06/2023 10:1 2 AM EDT 02/07/2023 11:00 AM EDT us [facility] External Provider LAB CYT OLOGY ORDERABLES Final Result [facility] [address] [place] [phone] [phone] * Pap Smear (02/06/2023 10:12 AM EDT) 02/06/2023 10:1 2 AM EDT 02/07/2023 11:00 AM EDT [facility] - 02/27/2023 7:33 PM EDT ----- ------- Name: Adri Hale,Marina Age/Sex: 37/F : 1985 Unit#: [id number] Attend Dr: Li Kendrick CNM Re02/06/23 Status: DEP REF Location: [facility] Disch: ----- ------- SPEC : [id number] RECD: 02/07/23 STATUS: NOAM AMBIKA NUM: [id number] YLNDON: 02/06/23-[address] [facility] [address]: Li Kendrick [facility] ENTERED: 02/07/23 SP TYPE: Pap Smr FRED DR: Keshia Beck MD ORDERED: Pap Smear Addendum Addendum 1 Entered: 02/24/23 HPV mRNA E6/E7: NOT DETECTED This assay detects E6/E7 viral messenger RNA (mRNA) from 14 high-risk HPV types (16, 18, 31, 33, 35, 39, 45, 51, 52, 56, 58, 59, 66, 68) HPV testing performed by [employer], [place], [place]. See reference laboratory portion of the EMR for entire report. Addendum Signed (signature on file) Maribell Groveton 02/27/231932 ----- ------- Interpretation Satisfactory for evaluation. No endocervical cells seen. Negative for intraepithelial lesion or malignancy. Clinical Information LMP: 01/30/23 Previous PAP test: 07/13/18, WN Material Received ThinPrep-Cervical Copies To: Keshia Beck MD [address] [place] [address] Li Kendrick CNM [address] [place] [address] Dr. Che [address] [place] [phone] CONTINUED ON NEXT PAGE ----- ------- Name: Adri HaleMarina ewing Age/Sex: 37/F : 1985 Unit#: [id number] Attend Dr: Li Kendrick CNM Re02/06/23 Status: DEP REF Location: .P Disch: ----- ------- SPEC : [id number] RECD: 02/07/23-1099 STATUS: NOAM APPLE NUM: [id number] LYNDON: 02/06/23-[address] [facility] [address]: Li Kendrick CNM ENTERED: 02/07/231128 SP TYPE: Pap Gia IBARRA DR: Keshia Beck MD ORDERED: Pap Smear ----- ------- Signed (signature on file) Marilee Nani Arthur 02/10/23 1211 (signature on file) Maribell Veliz 02/27/23 1933 ----- ------- END OF REPORT [facility] External Provider LAB [facility] [place] Final Result [facility] [address] [place] [phone] from Last 3 Months or Most Recently Relevant to Health Maintenance Insurance [address] [place], [place] [address] C3 Care Teams 4 H Youth Development Specialist Relationship Specialty Start Date End Date Keshia Beck MD [address] [place] [phone] PCP - General Family Medicine 07/08/18
--- OUTSIDE RECORDS SUMMARY | 2025-07-15 08:46 | XMS_ITS | Encounter Summary ---
Author Organization [employer] Address [address] [facility] 7t [place] [address] Care Team Providers Care Epic Stork Specialists Name Role Phone Keshia Beck MD Primary Care Provide r Reason for Visit * Reason Comments Med Refill Encounter Details Date Type Department Care Team ([facility] st Contact Info) Description 07/12/2025 Refill [facility] MEDICINE [address] [place] [address] Keshia Beck MD [address] [place] [address] Class 3 severe obesity due to excess [...] Description 09/26/2025 10:15 AM EST Office Visit [facility] MEDICINE [address] [place] [address] Keshia Beck MD [address] [place] [address] documented as of this encounter Visit Diagnoses Diagnosis Class 3 severe obesity due to excess calories with serious comorbidity and body mass index (BMI) of 50.0 to 59.9 in adult documented in this encounter Additional Health Concerns Assessment Noted Time PHQ-9 Depression Total Score: 0 10/25/20 24 10:14 AM EST documented as of this encounter Care Teams Epic [employer] Specialists Relationship Specialty Start Date End Date Keshia Beck MD [address] [place] [phone] PCP - General Family Medicine 07/08/18 documented as of this encounter
--- OUTSIDE RECORDS SUMMARY | 2025-07-15 08:46 | XMS_ITS | Encounter Summary ---
Author Organization [employer] Address [address] [facility] 7t [place] [address] Care Team Providers Care Marketing Intelligence Manager Name Role Phone Keshia Beck MD Primary Care Provide r Reason for Visit * Reason Comments Med Refill Encounter Details Date Type Department Care Team ([facility] Contact Info) Description 11/24/[address] [facility] MEDICINE [address] [place] [address] Keshia Beck MD [address] [place], [place] [phone] Polyarthralgia Social History Tobacco Use Types Packs/Day [...] Description 09/26/2025 10:15 AM EST Office Visit [facility] [address] [place] [phone] Keshia Beck MD [address] [place] [address] documented as of this encounter Visit Diagnoses Diagnosis Polyarthralgia Pain in joint, multiple sites documented in this encounter Additional Health Concerns Assessment Noted Time PHQ-9 Depression Total Score: 0 10/25/20 24 10:14 AM EST documented as of this encounter Care Teams Marketing Intelligence Manager Relationship Specialty Start Date End Date Keshia Beck MD [address] [place] [phone] PCP - General Family Medicine 07/08/18 documented as of this encounter
--- OUTSIDE RECORDS SUMMARY | 2025-07-15 08:46 | XMS_ITS | Encounter Summary ---
Author Organization [employer] Address [address] [facility] 7t [place] [address] Care Team Providers Care Customs Compliance Analyst Name Role Phone Keshia Beck MD Primary Care Provide r Reason for Visit * Reason Onset Date Comments Lab Orders 07/14/2025 Encounter Details Date Type Department Care Team ([facility] Contact Info) Description 07/14/[address] [facility] MEDICINE [address] [place] [address] Kierra Pozo RN [address] [place] [address] Lab Orders Social History Tobacco Use Types Packs/Day Years [...] encounter Miscellaneous Notes * Telephone Encounter - Kierra Pozo RN - 07/14/2025 11:15 AM EDT Pt. Walked in requesting tb test for work. Most recent test from 2022 negative. Order placed, pt. Will proceed to lab and is aware results take 3-5 days documented in this encounter Plan of Treatment Upcoming Encounters Date Type Department Care Team (Late st Contact Info) Description 09/26/2025 10:15 AM EST Office Visit [facility] MEDICINE [address] [place] [address] Keshia Beck MD [address] [place] [address] Scheduled Orders Name Type Priority Associated Diagnoses Orde r Schedule T-SPOT .TB Lab Routine Screening examination for pulmonary tuberculosis Expected: 07/14/2025 (Approximate), Expires: 07/14/2026 documented as of this encounter Visit Diagnoses Diagnosis Screening examination for pulmonary tuberculosis documented in this encounter Additional Health Concerns Assessment Noted Time PHQ-9 Depression Total Score: 0 10/25/20 24 10:14 AM EST documented as of this encounter Care Teams Customs Compliance Analyst Relationship Specialty Start Date End Date Keshia Beck MD [address] [place] [address] PCP - General Family Medicine 07/08/18 documented as of this encounter
--- OUTSIDE RECORDS SUMMARY | 2025-07-15 08:46 | XMS_ITS | Encounter Summary ---
Author Organization [employer] Address [address] [facility] 7t [place] [address] Care Team Providers Care Purchasing Engineer Name Role Phone Keshia Beck MD Primary Care Provide r Encounter Details Date Type Department Care Team ([facility] Contact Info) Description 01/14/2025 Orders Only [facility] MEDICINE [address] [place] [address] Keshia Beck MD [address] [place] [address] Social History Tobacco Use Types Packs/Day Years [...] 09/26/2025 10:15 AM EST Office Visit [facility] MEDICINE [address] [place] [phone] Keshia Beck MD [address] [place] [address] documented as of this encounter Visit Diagnoses Not on filedocumented in this encounter Additional Health Concerns Assessment Noted Time PHQ-9 Depression Total Score: 0 10/25/20 24 10:14 AM EST documented as of this encounter Care Teams Purchasing Engineer Relationship Specialty Start Date End Date Keshia Beck MD [address] [place] [phone] PCP - General Family Medicine 07/08/18 documented as of this encounter
[2025-07-15 12:29] LABS: Microalbum/Creatinine Ratio Ur 6.7 ug/mg cr (<30)
[2025-07-19 13:18] LABS: TS Negative Control Passed; TS Panel A 0; TS Panel B 0; TS Positive Control Passed; TSpotTB Negative (Negative)
== END 2025-07-15 08:18 | disposition home or self-care (01) ==
LOC: HO.HHCL 08:17
PROVIDERS: PCP Internal Medicine; Visit Provider Internal Medicine
DX: Z11.1 Encounter for screening for respiratory tuberculosis (principal); E11.9 Type 2 diabetes mellitus without complications
CPT/HCPCS: 36415; 82043; 82570; 86481

== ENCOUNTER 2025-07-26 11:27 | Outpatient (AMB) | payer MEDICAID, SELFPAY ==
--- NOTE | 2025-07-26 11:35 | MHC.OFFVIS ---
Vital Signs 07/26/25 11:37 BP 100/70 Intake Visit Reasons: urine dip Allergies penicillin V Allergy (Unknown, Verified 06/28/25 11:12) rash Penicillins (PENICILLINS) Allergy (Unknown, Verified 06/28/25 11:12) RASH HPI Comments Details: Presenting for repeat urine dip for microscopic hematuria on urine dip last visit, urine culture grew 50-100 K sabino [facility] Medical History Morbid obesity with BMI of 50.0-59.9, adult History of menorrhagia Glaucoma Sleep apnea Surgical History History of hysteroscopy S/P Family History Father Diabetes Hypertension Mother Hypertension Social History Household Members: Children Housing: Apartment Alcohol intake: former Patient Tobacco Use Status: Never used Tobacco service: No Current occupational status: employed Current occupation: [employer] Sexual orientation: Straight/Heterosexual Gender identity: Female Female Reproductive History Menstrual Age of Menarche: 11 Review of Systems Const All systems reviewed & are unremarkable except as noted in HPI and below Reports as per HPI and Reports no additional complaints GI Reports no additional complaints Reports no additional complaints Assessment & Plan Assessment & Plan (1) Microscopic hematuria: Code(s): R31.29 - Other microscopic hematuria Category: Medical Plan: Repeat Urine dip showed microscopic hematuria, urine culture was negative. Discussed with the patient the possible causes of microscopic hematuria including but not limited to: interstitial cystitis, polyps, stones, masses, urethral inflammatory processes and others. will proceed with CT abdomen/pelvis and urology referral. Instructed the patient to call our office back in case a referral appointment is not scheduled, missed or canceled so that we will assist on rescheduling another appointment, the patient verbalized understanding agreed with the plan. Orders: Orders CT abdomen pelvis wo/w IV con Today R31.29 - Other microscopic hematuria Referrals Urology Referral R31.29 - Other microscopic hematuria Coding Level of Care Code Est Pt Level 3 (97274) Diagnoses Microscopic hematuria R31.29
[2025-07-26 11:37] VITALS: BP 100/70
--- OUTSIDE RECORDS SUMMARY | 2025-07-26 12:54 | XMS_ITS | Encounter Summary ---
Author Organization [employer] Address [address] [facility] 7t [place] [address] Care Team Providers Care Athletic Shoe Designer Name Role Phone Keshia Beck MD Primary Care Provide r Reason for Visit * Reason Onset Date Comments Prior Authorization 11/10/2024 Encounter Details Date Type Department Care Team ([facility] st Contact Info) Description 11/10/2024 Telephone [facility] [address] [place] [address] Keshia Beck MD [address] [place] [address] Prior Authorization Social History Tobacco Use Types [...] regarding RX Zepbound PA was denied. [facility] patients need to trial oral medications [...] Description 09/26/2025 10:15 AM EST Office Visit [facility] [address] [place], [place] [phone] Keshia Beck MD [address] [place] [address] documented as of this encounter Visit Diagnoses Not on filedocumented in this encounter Additional Health Concerns Assessment Noted Time PHQ-9 Depression Total Score: 0 10/25/20 24 10:14 AM EST documented as of this encounter Care Teams Athletic Shoe Designer Relationship Specialty Start Date End Date Keshia Beck MD [address] [place] [address] PCP - General Family Medicine 07/08/18 documented as of this encounter
--- OUTSIDE RECORDS SUMMARY | 2025-07-26 12:54 | XMS_ITS | Clinical Summary ---
Author Organization [employer] Address [address] [facility] 7t [place] [address] Care Team Providers Care Regulatory Affairs Strategy Specialist Name Role Phone Keshia Beck MD [...] FREESTYLE LITE test stripIndicatio ns:Newly diagnosed diabetes ([facility]) Use to test blood sugar 2 times daily 100 each 12 024 2024 Active Blood Glucose Monitoring Suppl (FreeStyle [place] Lite) w/Device kitIndications :Newly diagnosed diabetes (HCC) Use to test blood sugar 2 times daily 1 kit Active cholecalcifero l (Vitamin D-3) 50 MCG (2000 UT) capsuleIndicat ions:Vitamin D deficiency Take 1 [...] (BMI) of 50.0 to 59.9 in adult ([facility]) TAKE 1 TABLET BY MOUTH DAILY 30 [...] as directed by . 30 patch 2 025 2025 Active Tirzepatide-We ight Management (Zepbound) 5 MG/0.5ML solution auto-injectorI ndications:Cla ss 3 severe obesity due to excess calories with serious comorbidity and body mass index (BMI) of 50.0 to 59.9 in adult ([facility]) Inject 0.5 mL (5 mg) under the skin 1 (one) time per week. INJECT ONE PEN (=5 MG) SUBCUTANEOUSLY ONCE A WEEK 2 mL 025 Active Alcohol Swabs (Alcohol Prep) 70 % padsIndication s:Newly diagnosed diabetes ([facility]) USE DIRECTED TO TEST BLOOD SUGAR TWICE DAILY 100 each 2 025 Active TRUEplus Lancets 33G miscIndication s:Newly diagnosed diabetes ([facility]) USE DIRECTED TO TEST BLOOD SUGAR TWICE DAILY 100 each 2 025 Active metFORMIN (Glucophage) 500 MG tabletIndicati ons:Newly diagnosed diabetes ([facility]) TAKE 1 TABLET BY MOUTH TWICE DAILY [...] (BMI) of 50.0 to 59.9 in adult ([facility]) Inject 0.5 mL (7.5 mg) under the skin every 7 (seven) days. 2 mL 025 Active Tirzepatide-We ight Management (Zepbound) 12.5 MG/0.5ML solution auto-injectorI ndications:Cla ss 3 severe obesity due to excess calories with serious comorbidity and body mass index (BMI) of 50.0 to 59.9 in adult ([facility]) Inject 0.5 mL (12.5 mg) under the skin 1 (one) time per week. INJECT ONE PEN (=12.5 MG) SUBCUTANEOUSLY ONCE A WEEK 2 mL 025 Active Tirzepatide-We ight Management (Zepbound) 10 MG/0.5ML solution auto-injectorI ndications:Cla ss 3 severe obesity due to excess calories with serious comorbidity and body mass index (BMI) of 50.0 to 59.9 in adult ([facility]) Inject 0.5 mL (10 mg) under the [...] every night Sleep medicine referral Morbid obesity ([facility]/HCC) 03/26/2017 023 Irregular periods 03/26/2017 08/14/2023 Glaucoma 03/26/2017 08/14/2023 Assessment & Plan (01/28/2025 11:08 AM EDT): Continue to follow-up with ophthalmology and continue with same medication (eyedrops) prescribed by specialist Acanthosis nigricans 03/26/2017 08/14/2023 Encounters Date Type Department Care Team Description 07/15/2025 Orders Only [facility] MEDICINE [address] [place] [address] Keshia Beck MD 07/14/2025 Telephone [facility] [address] [place] [address] Kierra Pozo, decatizer Orders 07/12/2025 Refill [facility] [address] [place] [address] Keshia Beck MD Class 3 severe obesity due to excess calories with serious comorbidity and body mass index (BMI) of 50.0 to 59.9 in adult 07/07/2025 Telephone [facility] MED & PEDS [address] [place], [place] [phone] Keshia Beck MD NOV RECALL 06/28/2025 Orders Only GENERIC EXTERNAL DATA DEPARTMENT Provider, Generic External Data 06/21/2025 Orders Only GENERIC EXTERNAL DATA DEPARTMENT Provider, Generic External Data 06/16/2025 Orders Only [facility] [address] [place] [address] Keshia Beck MD Class 3 severe obesity due to excess calories with serious comorbidity and body mass index (BMI) of 50.0 to 59.9 in adult (Primary Dx) 06/15/2025 Refill [facility] [address] [place], [place] [phone] Keshia Beck MD Class 3 severe obesity due to excess calories with serious comorbidity and body mass index (BMI) of 50.0 to 59.9 in adult 05/19/2025 Refill [facility] [address] [place] [address] Keshia Beck MD Class 3 severe obesity due to excess calories with serious comorbidity and body mass index (BMI) of 50.0 to 59.9 in adult 05/17/2025 Refill [facility] PEDS [address] [place] [address] Keshia Beck MD Polyarthralgia 05/16/2025 Refill [facility] [address] [place], [place] [phone] Keshia Beck MD Newly diagnosed diabetes ([facility]); Polyarthralgia from Last 3 Months Immunizations Immunization [...] 09/26/2025 10:15 AM EST Office Visit [facility] [address] [place] [address] Keshia Beck MD [address] [place] [address] Health Maintenance Due Date Last Done Comments Disability Screening 1985 Diabetes: Foot Exam 1995 Eye Exam 1995 Family Planning (PISQ) 2000 HPV Vaccines (1 - 3-dose series) 2000 Hepatitis B Vaccines (1 of 3 - [...] 02/06/2026 02/06/2023, 07/13/2018 Tobacco Screening 03/16/2026 03/16/2025 Diabetes: Urine Protein Screening 07/15/2026 07/15/2025 Cervical Cancer Screening 02/07/2028 HPV/Cotest 02/07/2028 02/06/2023 [...] Procedure Name Priority Date/Time Associated Diagnosis Comments T-SPOT(R).TB Routine 07/15/2025 8:47 AM EDT ALBUMIN, RANDOM URINE W/CREATININE Routine 07/15/2025 8:47 AM EDT Type 2 diabetes mellitus without complication, without long-term current use of insulin (CMS/HCC) CULTURE, URINE, ROUTINE Routine 06/28/2025 11:00 AM [...] Recently Relevant to Health Maintenance Results * T-SPOT??.TB (07/15/2025 8:47 AM EDT) T Spot TB Negative Negative [facility] Comment:A negative test resu lt does not exclude the possibilityof exposure to or infection with Mycobacteriumtuberculosis (M. tuberculosis). Patients with recentexposure to TB infected individuals exhibiting anegative T-SPOT.TB result should be considered forretesting within 6 weeks or if other relevant clinicalsymptoms indicate. Results from T-SPOT.TB testing mustbe used in conjunction with each individual'sepidemiological history, current medical status,and results of other diagnostic evaluations.The T-SPOT.TB test is qualitative and results arereported as positive, borderline, or negative, giventhat the test controls perform as expected. In linewith the Centers for Disease Control and Prevention's2010 recommendation to report quantitative measurementsalongside the qualitative result, the laboratoryprovides spot counts for informational purposes only.The T-SPOT.TB test should not be interpreted as aquantitative test. TS PANEL A 0 [facility] TS PANEL B 0 [facility] Negative Control Passed [facility] Positive Control Passed [facility] Comment:For additional infor mation, please refer tohttp://education.[employer]/faq/UPM915(This link is being provided for informational/educational purposes only.)REPORT COMMENT:REC'D AT [facility] TEST WAS PERFORMED AT:[id number] [place] [id number] PASCUAL MD,PHD 07/15/2025 8:47 AM EDT 07/15/2025 11:12 AM EDT us Keshia Mota MD LAB BLOOD ORDERABLES Final Result [facility] [address] [place] [address] [phone] * Albumin, Random Urine W/Creatinine (07/15/2025 8:47 AM EDT) Pathologist [facility] Creatinine, Urine 73.92 mg/dL [facility] Microalbumin Urine 5.0 mg/L [facility] Microalbum Creatinine Ratio Ur 6.7 <30 ug/mg cr [facility] Comment:Albumin/Creatinine R atio Reference Ranges: Normal: < 30 ug/mg creatinine Microalbuminuria: 30 - 300 ug/mg creatinineClinical Albuminuria: > 300 ug/mg creatinine Urine (Urine, Random) 07/15/2025 8:47 AM EDT 07/15/2025 11:36 AM EDT us Keshia Mota MD LAB URINE ORDERABLES Final Result Performing Organization Address [facility] Co de Phone Number [facility] [address] [place] [phone] * Culture, Urine, Routine (06/28/2025 11:00 AM EDT) Urine Urine specimen obtained by clean catch procedure / Unknown 06/28/2025 11:00 AM EDT 06/28/2025 3:32 PM EDT Comment:UACC Narrative [facility] - 06/30/2025 10:41 AM EDT Urine Culture Report Result Urine Culture 10,000 to 50,000 cfu/ml Urine Culture Mixed bacterial sabino characteristic of Urine Culture urogenital contamination. Specimen Source: Urine clean catch us Generic External Data Provider LAB MICROBIOLOGY - GENERAL ORDERABLES Final Result Performing Organization Address [facility] Co de Phone Number [facility] [address] [place] [phone] * Chlamydia/N. Gonorrhoeae RNA, TMA, Urogenitial (06/21/2025 3:00 PM EDT) CT PCR NOT DETECTED Not Detect. [facility] Comment:A not detected test result does [...] psychologicalconsequences. NG PCR NOT DETECTED Not Detect. [facility] Comment:A not detected test result does [...] LAB MICROBIOLOGY - GENERAL ORDERABLES Final Result [facility] [address] [place] [phone] * POCT HGB A1C (03/11/2025 9:50 AM EDT) Hemoglobin A1C 5.8 4.0 - 6.0 % QC Media Lot # [id number] Lot# Expiration Date Blood 03/11/2025 9:50 AM EDT us Keshia Mota MD POINT OF CARE TEST EN TER/EDIT ORDERABLES Final Result * Hepatitis C Antibody with Reflex to HCV, RNA, Quantitative, Real-Time PCR (09/06/2024 10:00 AM EST) Hepatitis C Antibody Nonreactive Nonreactive [facility] Comment:Antibodies to HCV no t detected; does not exclude early acuteHCV infection. Blood Venous blood specimen / Unknown 09/06/2024 10:00 AM EST 09/06/2024 11:06 AM EST us Keshia Mota MD LAB BLOOD ORDERABLES Final Result Performing Organization Address City/[facility]/ZIP Co de Phone Number [facility] [address] [place] [phone] * HIV-1/2 Antigen and Antibodies, Fourth Generation, with Reflexes (09/06/2024 10:00 AM EST) HIV AB/AG Nonreactive Nonreactive [facility] Comment:HIV-1 p24 Ag and/or HIV-1/HIV-2 Ab not detected.A test result that is nonreactive does not exclude thepossibility of exposure to or infection with HIV-1 and/orHIV-2. Nonreactive results in this assay for individualswith prior exposure to HIV-1 and/or HIV-2 may be due toantigen and antibody levels that are below the limit ofdetection of this assay.The [employer] HIV Ag/Ab Combo assay result andsupplemental assay results should be interpreted inconjunction with the patient's clinical presentation,history and other laboratory results. If the results areinconsistent with clinical evidence, additional testing issuggested to confirm the result. Blood Venous blood specimen / Unknown 09/06/2024 10:00 AM EST 09/06/2024 11:06 AM EST us Keshia Mota MD LAB BLOOD ORDERABLES Final Result Performing Organization Address City/[facility]/ZIP Co de Phone Number [facility] [address] [place] [phone] [phone] * (ABNORMAL) Lipid Panel, Standard (09/06/2024 10:00 AM EST) Triglycerides 250(H) <150 mg/dL [facility] Comment:Desirable Triglyceri de: less than 150 mg/dLBorderline High Triglyceride 150-199 mg/dLHigh Triglyceride: 200-499 mg/dLVery High Triglyceride: greater than or equal to 5OO mg/dL Cholesterol 140 <200 mg/dL [facility] Comment:Desirable Cholestero l: less than 200 mg/dLBorderline High Cholesterol: 200-239 mg/dLHigh Cholesterol: greater than 239 mg/dL LDL Cholesterol Calculated 44 <100 mg/dL [facility] Comment:Desirable LDL: less than 100 mg/dLNear Optimal/Above Optimal LDL: 110- 129 mg/dLBorderline High LDL: 130-159 mg/dLHigh LDL: 160-189 mg/dLVery High LDL: greater than or equal to 190 mg/dL HDL Cholesterol 46 >40 mg/dL [facility] Comment:Desirable HDL: great er than 40 mg/dL Note: This HDL assay may give artificially low results in patients with liver disease. Blood Venous blood specimen / Unknown 09/06/2024 10:00 AM EST 09/06/2024 11:06 AM EST Keshia Mota MD LAB BLOOD ORDERABLES Final Result [facility] [address] [place] [phone] * HPV mRNA E6/E7 w/Reflex to HPV Genotypes 16, 18/45 (02/06/2023 10:12 AM EDT) HPV nRNA E6/E7 Not Detected Not Detected [facility] Comment:Methodology: Transcr iption-Mediated AmplificationThis assay detects E6/E7 viral messenger RNA (mRNA) from 14high-risk HPV types (16,18,31,33,35,39,45,51,52,56,58,59,66,68).Cervical sources are required for HPV testing.If a vaginal source from a patient who has had atotal hysterectomy with removal of cervix wassubmitted, please contact the testing laboratoryfor alternative testing options.For additional information, please refer tohttp://education.[employer]/faq/VBT058t4(This link if provided for information/educational purposes only.)THIS TEST WAS PERFORMED AT:[employer] [place] [id number] BOB MD HPV mRNA E6/E7 TNP [facility] HPV 16 RNA TNP [facility] HPV 18/45 RNA TNP [facility] 02/06/2023 10:1 2 AM EDT 02/07/2023 11:00 AM EDT [facility] External Provider LAB CYT OLOGY ORDERABLES Final Result [facility] [address] [place] [phone] [phone] * Pap Smear (02/06/2023 10:12 AM EDT) 02/06/2023 10:1 2 AM EDT 02/07/2023 11:00 AM EDT Narrative [facility] - 02/27/2023 7:33 PM EDT ----- ------- Name: Marina Pena Age/Sex: 37/F : 1985 Unit#: [id number] Attend Dr: Li Kendrick CNM Re02/06/23 Status: DEP REF Location: [facility] Disch: ----- ------- SPEC : [id number] RECD: 02/07/23 STATUS: NOAM APPLE NUM: [id number] [place]: 02/06/23-1012 [facility] DR: Li Kendrick [facility] ENTERED: 02/07/23 SP TYPE: Pap Smr OTHR DR: Keshia Beck MD ORDERED: Pap Smear Addendum Addendum 1 Entered: 02/24/23 HPV mRNA E6/E7: NOT DETECTED This assay detects E6/E7 viral messenger RNA (mRNA) from 14 high-risk HPV types (16, 18, 31, 33, 35, 39, 45, 51, 52, 56, 58, 59, 66, 68) HPV testing performed by [employer], [place], [place]. See reference laboratory portion of the EMR for entire report. Addendum Signed (signature on file) Maribell Parksley 02/27/23 1933 ----- ------- Interpretation Satisfactory for evaluation. No endocervical cells seen. Negative for intraepithelial lesion or malignancy. Clinical Information LMP: 01/30/23 Previous PAP test: 07/13/18, WNL Material Received ThinPrep-Cervical Copies To: Keshia Beck MD [address] [place], [place] [phone] Li Kendrick[address] Che [address] [place] [phone] CONTINUED ON NEXT PAGE ----- ------- Name: Marina Pena Age/Sex: 37/F : 1985 Unit#: [id number] Attend Dr: MireilleLi [facility] Re02/06/23 Status: DEP REF Location: HO.LNP Disch: ----- ------- SPEC : [id number] RECD: 02/07/23-1099 STATUS: NOAM APPLE NUM: [id number] [place]: 02/06/23-1012 [facility] DR[facility]: 02/07/23-1128 SP TYPE: Lupe IBARRA DR: Keshia Beck MD ORDERED: Pap Smear ----- ------- Signed (signature on file) Marilee Arthur 02/10/23 1211 (signature on file) Maribell Veliz 02/27/23 1933 ----- ------- END OF REPORT [facility] External Provider LAB CYT OLOGY ORDERABLES Final Result [facility] [address] [place], [place] [phone] from Last 3 Months or Most Recently Relevant to Health Maintenance Insurance [employer] Care Teams Regulatory Affairs Strategy Specialist Relationship Specialty Start Date End Date Keshia Beck MD [address] [place] [phone] PCP - General Family Medicine 07/08/18
--- OUTSIDE RECORDS SUMMARY | 2025-07-26 12:54 | XMS_ITS | Encounter Summary ---
Author Organization [employer] Address [address] [facility] 7t [place] [address] Care Team Providers Care Shingler Name Role Phone Keshia Beck MD Primary Care Provide r Reason for Visit * Reason Comments Med Refill Encounter Details Date Type Department Care Team ([facility] st Contact Info) Description 06/15/2025 Refill [facility] [address] [place] [address] Keshia Beck MD [address] [place] [address] Class 3 severe obesity due to excess [...] Description 09/26/2025 10:15 AM EST Office Visit [facility] [address] [place] [address] Keshia Beck MD [address] [place] [address] documented as of this encounter Visit Diagnoses Diagnosis Class 3 severe obesity due to excess calories with serious comorbidity and body mass index (BMI) of 50.0 to 59.9 in adult (HCC) documented in this encounter Additional Health Concerns Assessment Noted Time PHQ-9 Depression Total Score: 0 10/25/20 24 10:14 AM EST documented as of this encounter Care Teams Shingler Relationship Specialty Start Date End Date Keshia Beck MD [address] [place] [address] PCP - General Family Medicine 07/08/18 documented as of this encounter
--- OUTSIDE RECORDS SUMMARY | 2025-07-26 12:54 | XMS_ITS | Encounter Summary ---
Author Organization [employer] Address [address] [facility] 7t [place] [address] Care Team Providers Care Director Of Advertising Sales Name Role Phone Keshia Beck MD Primary Care Provide r Encounter Details Date Type Department Care Team ([facility] Contact Info) Description 01/14/2025 Orders Only [facility] MEDICINE [address] [place] [address] Keshia Beck MD [address] [place] [address] Social History Tobacco Use Types Packs/Day Years [...] 10:15 AM EST Office Visit [facility] MEDICINE [address] [place] [phone] Keshia Beck MD [address] [place] [address] documented as of this encounter Visit Diagnoses Not on filedocumented in this encounter Additional Health Concerns Assessment Noted Time PHQ-9 Depression Total Score: 0 10/25/20 24 10:14 AM EST documented as of this encounter Care Teams Director Of Advertising Sales Relationship Specialty Start Date End Date Keshia Beck MD [address] [place] [phone] PCP - General Family Medicine 07/08/18 documented as of this encounter
--- OUTSIDE RECORDS SUMMARY | 2025-07-26 12:54 | XMS_ITS | Encounter Summary ---
Author Organization [employer] Address [address] [facility] 7t [place] [address] Care Team Providers Care Life Trainer Name Role Phone Keshia Beck MD Primary Care Provide r Encounter Details Date Type Department Care Team ([facility] Contact Info) Description 02/17/2023 Orders Only [facility] MED & PEDS [address] [place], [place] [phone] Marina Fair LPN Social History Tobacco Use [...] Upcoming Encounters Date Type Department Care Team ([facility] Contact Info) Description 09/26/2025 10:15 AM EST Office Visit [facility] MEDICINE [address] [place], [place] [phone] Keshia Beck MD [address] [place], [place] [phone] documented as of this encounter Visit Diagnoses Not on filedocumented in this encounter Care Teams Life Trainer Relationship Specialty Start Date End Date Keshia Beck MD [address] [place] [address] PCP - General Family Medicine 07/08/18 documented as of this encounter
--- OUTSIDE RECORDS SUMMARY | 2025-07-26 12:54 | XMS_ITS | Encounter Summary ---
Author Organization [employer] Address [address] [facility] 7t [place] [address] Care Team Providers Care Tile Picker Name Role Phone Keshia Beck MD Primary Care Provide r Reason for Visit * Reason Comments Med Refill Encounter Details Date Type Department Care Team ([facility] Contact Info) Description 11/24/2024 Refill [facility] MEDICINE [address] [place] [address] Keshia Beck MD [address] [place], [place] [phone] Polyarthralgia Social History Tobacco Use Types Packs/Day [...] Description 09/26/2025 10:15 AM EST Office Visit [facility] MED[facility]INE [address] [place] [phone] Keshia Beck MD [address] [place] [address] documented as of this encounter Visit Diagnoses Diagnosis Polyarthralgia Pain in joint, multiple sites documented in this encounter Additional Health Concerns Assessment Noted Time PHQ-9 Depression Total Score: 0 10/25/20 24 10:14 AM EST documented as of this encounter Care Teams Tile Picker Relationship Specialty Start Date End Date Keshia Beck MD [address] [place] [phone] PCP - General Family Medicine 07/08/18 documented as of this encounter
== END 2025-07-26 11:46 | disposition home or self-care (01) ==
LOC: HO.HWS 11:27
PROVIDERS: PCP Internal Medicine; Visit Provider Obstetrics & Gynecology
DX: R31.29 Other microscopic hematuria (principal)
CPT/HCPCS: 99213

== ENCOUNTER → 2025-07-26 11:27 | Outpatient (BNVA) | payer MEDICAID, SELFPAY | PROVIDERS: PCP Internal Medicine; Visit Provider Obstetrics & Gynecology | DX: R31.29 Other microscopic hematuria (principal) | CPT/HCPCS: 81002; 99212 ==

== ENCOUNTER 2025-10-05 09:49 | Outpatient (REF) | payer MEDICAID, SELFPAY ==
[2025-10-05 23:22] LABS: CT PCR NOT DETECTED (Not Detect.); NG PCR NOT DETECTED (Not Detect.)
== END 2025-10-05 09:50 | disposition home or self-care (01) ==
LOC: HO.LNP 09:49
PROVIDERS: PCP Internal Medicine; Visit Provider Advanced Practice Midwife
DX: Z01.419 Encounter for gynecological examination (general) (routine) without abnormal findings (principal); Z12.39 Encounter for other screening for malignant neoplasm of breast; Z20.2 Contact with and (suspected) exposure to infections with a predominantly sexual mode of transmission; E66.01 Morbid (severe) obesity due to excess calories; Z68.42 Body mass index [BMI] 45.0-49.9, adult
CPT/HCPCS: 87491; 87591

== ENCOUNTER 2025-10-05 09:49 | Outpatient (AMB) | payer MEDICAID, SELFPAY ==
--- NOTE | 2025-10-05 09:55 | A.OFFVIS_ITS ---
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 Fountain Dispenser Required: Yes Fountain Dispenser Services: Fountain Dispenser Present Fountain Dispenser Name: corina machine id # [id number] Information Interpreted: non-clinical & clinical Customer Service Representative: Customer Service Representative Present (Sarah Rtoh MA) Accompanied by: Self / Same As Patient Allergies penicillin V Allergy (Unknown, Verified 10/05/25 10:09) rash Penicillins (PENICILLINS) Allergy (Unknown, Verified 10/05/25 10:09) RASH Is last menstrual period known: Yes Last menstrual period: 09/27/25 Post menopausal: No Patient : No HPI Comments Details: Pt presents today for ANNUAL exam She has the following concerns: none She is in a relationship x15 yrs . 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 she had an IUD removed a few months ago. she reports her periods are monthly w/o bothersome sx. states she would be okay if she were to become Last Pap: 01/2023 , Results: Negative Last mammo: diagnostic for breast pain, Results birads 1 she reports/points to the pain on the left side that comes/goes, unable to describe exacerbating factors. denies excessive caffeine use [facility] Medical History (Updated 10/05/25 @ 10:41 by Carey Mills CNM) Menometrorrhagia UTI (urinary tract infection) IUD check up Surveillance for control, oral contraceptives Encounter for IUD removal Encounter for insertion of Mirena IUD Morbid obesity with BMI of 50.0-59.9, adult History of menorrhagia Glaucoma Sleep apnea Surgical History History of hysteroscopy S/P Family History (Updated 10/05/25 @ 10:26 by Carey Mills CNM) Father Diabetes Hypertension Glaucoma Mother Hypertension Thyroid disease Sister No problems noted. Brother No problems noted. Brother No problems noted. Social History (Updated 10/05/25 @ 10:27 by Carey Mills CNM) Household Members: Children Housing: Apartment Alcohol intake: former Patient Tobacco Use Status: Never used Tobacco service: No Current occupational status: employed Current occupation: [employer] Sexual orientation: Straight/Heterosexual Gender identity: Female Female Reproductive History Menstrual Age of Menarche: 11 Duration of menses: 3-5 days Date of last menstrual period: 09/27/25 control method: none Date of last pap smear: 02/06/23 (negative papsmear, negative hpv ) Date of Mammogram: 04/13/25 (bi rad 2) Review of Systems Const Reports no additional complaints Eyes Reports no additional complaints Card Reports no additional complaints Resp Reports no additional complaints GI Reports no additional complaints Reports as per HPI Skin/Breast Reports system reviewed and no additional complaints, except as documented Physical Exam Vital Signs: Last Vital Signs BP 116/74 10/05/25 10:10 BMI result Body Mass Index 45.4 Const Other: Obese, pleasant woman General: cooperative, healthy appearing and no acute distress Orientation/consciousness: patient oriented x3 HEENT Other: glasses full-time Head: Yes normal to inspection and Yes normocephalic Ears: external ears normal General nose exam: Normal external nose present Neck Neck: Yes normal visual inspection Chest Breast/axilla inspection: normal inspection of the breasts, normal inspection of the axillae and Other (No skin changes, peau d orange, or nipple discharge noted) Breast/axilla palpation: normal palpation of the breasts, normal palpation of the axillae and no axillary lymphadenopathy Resp Effort & Inspection: normal respiratory effort and able to speak in complete sentences GI Inspection: No distended Palpation (GI): Soft to palpation, nontender and no masses Percussion: Yes normal to percussion Rectal Exam - Female: No External hemorrhoid(s) present External Female Exam: normal external appearance and normal appearance of the urethra Speculum Exam - Vagina: normal appearance of the vagina and normal vaginal discharge Speculum Exam - Cervix: normal appearance of the cervix and normal palpation (neg CMT) Bimanual exam- vagina & uterus: normal bimanual exam, normal palpation (neg CMT), uterine mobility normal and non-tender Bimanual Exam- Adnexa, other: no masses, No adnexal tenderness and Other (difficult to fully assess d/t body habitus) Skin General skin exam: no rashes or lesions noted Neuro General: patient oriented x3 and moves all extremities Extrem General: Yes full ROM Psych Speech and movement: Normal speech and movement present Affect: normal affect Attitude: cooperative Thought process: Normal thought process present Assessment & Plan Assessment & Plan (1) Well woman exam with routine gynecological exam: Code(s): Z01.419 - Encounter for gynecological examination (general) (routine) without abnormal findings Category: Medical (2) Screening breast examination: Code(s): Z12.39 - Encounter for other screening for malignant neoplasm of breast (3) Encounter for screening examination for sexually transmitted infection: Code(s): Z11.3 - Encounter for screening for infections with a predominantly sexual mode of transmission (4) Obesity, morbid, BMI 40.0-49.9: Code(s): E66.01 - Morbid (severe) obesity due to excess calories Category: Medical Plan During the visit, the following areas of concern were addressed: Monitoring of the menstrual cycle Contraception, including options and instructions, risks and benefits Pre conception counseling, including assuring a diet with sufficient and folic acid of where supplementation prior to conception, avoidance of alcohol, smoking or other harm for medications or drugs Regular exercise Healthy lifestyle Domestic violence Health Maintenance and Screening -Reviewed ASCCP guidelines for Paps and yearly (bi-yearly ) pelvic exam. -Reviewed and encouraged diet and exercise for cardiovascular and bone health -Reviewed breast self-awareness. Importance of yearly mammogram after age 40 (earlier if first-degree relative with breast cancer at a younger age ) Discuss use of 3 times per week weight-bearing exercise, vitamin D3 and servings of dietary calcium daily for bone health. -continue to follow with PCP for general medical care, immunizations. Family and personal history of cancer reviewed. Genetic screening The patient has BMI: 45 Approaches towards weight loss are discussed including burning more calories than one takes in by frequent, small meals, portion control, avoiding eating before bedtime, regular exercise with an emphasis on duration rather than intensity, strength training exercise. Tylenol/Motrin /Heat as needed for breast pain. cont to wear supportive bra RTO one year or sooner prdior Mills CNM Note about provider documentation : If you or the patient named in this chart and are reviewing your medical notes, please note that medical documentation is often written with abbreviations and medical terminology, and directed for other providers who may be involved in your care as well. Documentation is critical to record what has happened, what tests were ordered, and so they are interpreted with the resulting diagnoses. These notes have been made available for patient review but not specifically written for the patient. Important health information is always given to my patients in clinical instructions. Please review your after visit summary and our contact our clinical staff if you have any questions. Orders: Orders CT NG by PCR Vag/Cerv Today Z01.419 - Encounter for gynecological examination (general) (routine) without abnormal findings, Z11.3 - Encounter for screening for infections with a predominantly sexual mode of transmission Coding Level of Care Code Est Pt Prev Care 40-64y(57232) Diagnoses Well woman exam with routine gynecological exam Z01.419 Screening breast examination Z12.39 Encounter for screening examination for sexually transmitted infection Z11.3 Obesity, morbid, BMI 40.0-49.9 E66.01
[2025-10-05 10:10] VITALS: BP 116/74; BMI 45.4
== END 2025-10-05 10:48 | disposition home or self-care (01) ==
LOC: HO.HWSM 09:49
PROVIDERS: PCP Internal Medicine; Visit Provider Advanced Practice Midwife
DX: Z01.419 Encounter for gynecological examination (general) (routine) without abnormal findings (principal); Z12.39 Encounter for other screening for malignant neoplasm of breast; E66.01 Morbid (severe) obesity due to excess calories; Z68.42 Body mass index [BMI] 45.0-49.9, adult; Z11.3 Encounter for screening for infections with a predominantly sexual mode of transmission
CPT/HCPCS: 99396; 99459